=== PATIENT | female | born 1950 | race Caucasian/White ===

== ENCOUNTER 2022-11-25 23:31 | Inpatient (IN) | payer MEDICARE, MEDICAID, SELFPAY ==
--- NOTE | ~2022-11-25 | CT_ITS ---
EXAMINATION: CT brain wo con DATE: 11/26/2022 00:11 INDICATION: Cerebral aneurysm. TECHNIQUE: Computed tomography (CT) of the head was performed without intravenous contrast. The mA wa s adjusted according to patient size. Iterative reconstruction technique was employed. The dose-lengt h product was 681.00 mGy-cm. COMPARISON: None FINDINGS: There is chronic encephalomalacia involving the right frontal and temporal lobes, right ins breonna, and right basal ganglia. There is no intracranial hemorrhage, acute infarction, or abnormal intr acranial mass lesion. There is ex vacuo dilatation of right lateral ventricle. The orbits are normal. There is mild mucosal thickening in left maxillary sinus. There is a right mastoid effusion. There i s a trace left mastoid effusion. There are changes of right-sided craniotomy. IMPRESSION: 1. Chronic encephalomalacia involving the right frontal and temporal lobes, right insula, and right b yudelka ganglia. Reviewed, dictated and finalized at location A. IMPRESSION: 1. Chronic encephalomalacia involving the right frontal and temporal lobes, rig ht insula, and right basal ganglia.
--- NOTE | ~2022-11-25 | XR_ITS ---
EXAMINATION: XR chest 1V portable DATE: 11/26/2022 00:00 INDICATION: Chest pain. TECHNIQUE: A single frontal view of the chest was obtained. COMPARISON: None. FINDINGS: There is a diffuse interstitial pattern, consistent mild pulmonary edema. No pleural effusi on or pneumothorax. The heart size is normal. IMPRESSION: 1. Mild pulmonary edema. Reviewed, dictated and finalized at location A. IMPRESSION: 1. Mild pulmonary edema.
--- NOTE | ~2022-11-25 | XR_ITS ---
XR abdomen/kub 1V INDICATION: Evaluate NG tube position. TECHNIQUE: Limited KUB perform for evaluating NG tube . COMPARISON: No prior studies for comparison. FINDINGS: NG tube tip in the stomach. Visualized bowel gas pattern is unremarkable.There are cholecy stectomy clips. IMPRESSION: 1: NG tube tip in the stomach. Reviewed, dictated and finalized at location L.
--- NOTE | ~2022-11-25 | XR_ITS ---
EXAMINATION: XR chest port-a-cath/central Exam Date/Time: 11/26/2022 16:40 CDT HISTORY: Central line placement right IJ Comparison: Same date at 4:07 PM. RESULT: Lines, tubes, and devices: Right IJ central line terminating in the distal SVC. Endotracheal tube, 2 cm above the lashonda. NG tube, tip and side port projecting over the gastric antrum. Defibrillator pa d overlying the right hemithorax. Cholestatic clips. Lungs and pleura: Mild diffuse interstitial opacities. Cardiomediastinal silhouette: Stable. Other: No acute osseous or upper abdominal finding. IMPRESSION: Right IJ central line, in good position. Endotracheal tube, 2 cm above the lashonda. Mild interstitial edema. Reviewed, dictated and finalized at location K. IMPRESSION: Right IJ central line, in good position. Endotracheal tube, 2 cm above the srinivasa na. Mild interstitial edema.
--- NOTE | ~2022-11-25 | CT_ITS ---
EXAMINATION: CT chest abdomen pelvis w con DATE: 11/26/2022 21:30 INDICATION: RP hemorrhage, hematocrit drop, recent cardiac catheterization and attempts at right femo ral line placement. TECHNIQUE: Computed tomography (CT) of the chest, abdomen, and pelvis was performed with 100 mL Omnip aque-350 intravenous contrast. Automated exposure control and iterative reconstruction technique were employed. The dose-length product was 1782.08 mGy-cm. COMPARISON: None FINDINGS: CHEST: Endotracheal tube terminates 2 cm above the lashonda. NG tube tip terminates in the first portion of th e duodenum. Right IJ central venous line terminating in the distal SVC. Thoracic aorta: No significant dilation or calcification. Lung parenchyma and airways: Bibasilar dependent opacities. Mild septal thickening and dependent grou ndglass opacities. Calcified granulomas. Thoracic inlet, axillae and chest wall: 1.4 cm calcified left thyroid nodule, requiring no additional evaluation. No axillary lymphadenopathy. Mediastinum: No mass or lymphadenopathy. Calcified lymph nodes. Heart and pericardium: Normal heart size. No pericardial effusion. Coronary artery calcifications: Moderate. Pleura: Small bilateral fluid collections. Thoracic bones: No acute osseous finding in the chest. ABDOMEN/PELVIS: Liver: Diffuse fatty infiltration. Biliary/Gallbladder: Gallbladder is absent. No bile duct dilation. Pancreas: No mass or duct dilation. Spleen: Normal. Adrenals:No mass. Kidneys: Simple midpole right cyst. Bilateral hypodensities, too small to characterize but most likel y represent cysts. Subcentimeter left lower pole hypodensity, likely proteinaceous or hemorrhagic cys t. No hydronephrosis. GI tract: No small or large bowel dilation. Normal appendix. Mesentery/Peritoneum: Small volume ascites. No mass or free air. Retroperitoneum: No mass Atherosclerotic abdominal aortic and/or arterial calcifications. Pelvis: Irregular and heterogeneous hemorrhagic collection in the extraperitoneal space anterior to t he bladder measuring approximately 11.0 x 14.0 x 19.5 cm. No active extravasation. The collection com presses the urinary bladder, which contains a Gold catheter. The right ovary is enlarged measuring 3 .8 cm. 8 mm focal outpouching from the right common femoral artery. Soft tissue density anterior to t he right common femoral artery and vein, with tenuous connections to the extraperitoneal collection. Soft Tissues: Soft tissues and body wall unremarkable. Abdominopelvic bones: No acute osseous finding in the abdomen/pelvis. IMPRESSION: 1. 11.0 x 14.0 x 19.5 cm extraperitoneal pelvic hematoma, without active extravasation. 2. 8mm traumatic pseudoaneurysm of the right common femoral artery. 3. Hematoma anterior to the right common femoral artery and vein, with tenuous connection to the extr aperitoneal hematoma. 4. Endotracheal tube terminates 2 cm above the lashonda. 5. Transpyloric NG tube, consider retraction. 6. Bibasilar dependent atelectasis/consolidation with small bilateral effusions. Mild interstitial pu lmonary edema. 7. Enlarged 3.8 cm right ovary, consider pelvic ultrasound for further evaluation when the patient's clinical condition permits. Reviewed, dictated and finalized at location K. IMPRESSION: 1. 11.0 x 14.0 x 19.5 cm extraperitoneal pelvic hematoma, without active extrav asation. 2. 8mm traumatic pseudoaneurysm of the right common femoral artery. 3. Hematoma anterior to the right common femoral artery and vein, with tenuous connection to the extraperitoneal hematoma. 4. Endotracheal tube terminates 2 cm above the lashonda. 5. Transpyloric NG tube, consider retraction. 6. Bibasilar dependent atelectasis/consolidation with small bilateral effusions . Mild interstitial pu
--- NOTE | ~2022-11-25 | XR_ITS ---
XR chest 1V portable 11/26/2022 16:17 Indication: Respiratory distress. Status post intubation. Procedure: AP portable chest Comparison: 11/26/2022 Findings: Endotracheal tube tip 2 cm above the lashonda. NG tube in the stomach. Borderline heart size. There is mild interstitial edema. No pneumothorax. Impression: 1: Mild interstitial edema Reviewed, dictated and finalized at location L. Impression: 1: Mild interstitial edema
--- NOTE | ~2022-11-25 | XR_ITS ---
EXAMINATION: XR chest 1V portable DATE: 11/27/2022 06:35 INDICATION: Respiratory failure. TECHNIQUE: A single frontal view of the chest was obtained. COMPARISON: Chest single view 11/26/2022, chest CT 11/26/2022 FINDINGS: There are airspace opacities in left mid and lower lung zones. There is a small left pleura l effusion. No pneumothorax. The heart size is normal. The endotracheal tube tip is 2.6 cm above the lashonda. A right internal jugular central venous catheter is seen with tip in the superior vena cava. The nasogastric tube tip is in the distal stomach. Surgical clips in the right upper quadrant are lik bradford from cholecystectomy. IMPRESSION: 1. Worsened airspace opacities in left mid and lower lung zones, consistent with atelectasis versus p neumonia. 2. Small left pleural effusion. Reviewed, dictated and finalized at location A. IMPRESSION: 1. Worsened airspace opacities in left mid and lower lung zones, consistent wit h atelectasis versus pneumonia. 2. Small left pleural effusion.
--- NOTE | ~2022-11-25 | XR_ITS ---
XR chest 1V portable 11/26/2022 14:44 Indication: Shortness of breath. Procedure: AP portable chest Comparison: 11/25/2022 Findings: Heart size normal. Bilateral interstitial infiltrates. No pleural effusion or pneumothorax. No acute osseous abnormality. Impression: 1: Improving interstitial infiltrates, consistent with a resolving edema. Reviewed, dictated and finalized at location L. Impression: 1: Improving interstitial infiltrates, consistent with a resolving edema.
[2022-11-25 23:32] VITALS: BP 118/69; PULSE 76; RESP 20; O2SAT 92
--- NOTE | 2022-11-25 23:37 | ECG_ITS ---
Measurements Intervals [place] Rate: 71 P: 61 ND: 184 QRS: 69 QRSD: 96 T: 119 QT: 384 QTc: 418 Interpretive Statements SINUS RHYTHM INFERIOR ST ELEVATION MYOCARDIAL INFARCT- ACUTE BASELINE ARTIFACT- I, II, III, AVR, AVL, AVF, V1-V6 ABNORMAL ECG NO PREVIOUS ECG AVAILABLE FOR COMPARISON Electronically Signed On 11-26-2022 6:38:43 CDT by Carlyle Mallory D.O.
[2022-11-25 23:49] VITALS: BP 122/74; PULSE 74; RESP 22; O2SAT 92
[2022-11-25 23:55] VITALS: PULSE 74
--- NOTE | 2022-11-25 23:57 | ED.GENADULT ---
HPI - General Adult General Chief complaint: Chest Pain Stated complaint: CP/STEMI Time Seen by Provider: 11/25/22 23:50 History of Present Illness HPI narrative: This is a 72-year-old female presenting ED with chief complaint of chest pain. Patient says that her pain originally started at 11:00 a.m. this morning and she described as a sharp left-sided pain that radiated to her neck. It was associated with diaphoresis and weakness. Last until approximately 1:30 p.m. She then took a nap. The pain recurred at 9:00 p.m. and lasted till EMS picked her up around 11:15. This time the patient is resting comfortably with no complaints. Related Data Allergies Allergy/AdvReac Type Severity Reaction Status Date / Time NKDA Allergy Mild Unknown Uncoded 11/25/22 23:52 [facility] Past Medical History Medical History Brain aneurysm Surgical History Surgical History H/O craniotomy Exam Narrative: APPEARANCE: No apparent distress. Head: atraumatic. EYES: EOMI, NOSE: Atraumatic NECK: Trachea midline RESPIRATORY: No increased rate of breathing CARDIOVASCULAR: RRR, ABDOMINAL: Non-distended MUSCULOSKELETAl: No obvious deformities NEURO: Alert. Patient has rigid paralysis of the left arm and the left foot is in a footdrop brace. Neuro exam of the right side is normal. SKIN:: Warm, dry. Normal color PSYCHIATRIC: Normal affect Course Vital Signs Vital signs: Vital Signs Pulse Rate 76 11/25/22 23:32 Respiratory Rate 20 11/25/22 23:32 Blood Pressure 118/69 11/25/22 23:32 Pulse Oximetry 92 11/25/22 23:32 Oxygen Delivery Room Air 11/25/22 23:32 Pulse Rate 74 11/25/22 23:55 Respiratory Rate 22 H 11/25/22 23:49 Blood Pressure 122/74 11/25/22 23:49 Pulse Oximetry 92 11/25/22 23:49 Oxygen Delivery Room Air 11/25/22 23:32 Medical Decision Making MDM Narrative Medical decision making narrative: -Presentation: She 72-year-old female presenting with chest pain and STEMI EKG findings. -DDX includes but is not limited to: STEMI, intracranial hemorrhage -Co-morbidities complicating care: history of brain aneurysm with craniotomy -Social determinants of health: patient is retired and lives with her line -External Chart Review: review of a primary care office visit from January 2020 -Hx from independent Sources: Zach @ bedside, EMS -Discussion of Management/Consultants: Dr. Gilman - Int cardiology -Independent interpretation of studies: Independent EKG interpretation: Rhythm [sinus], Rate [71], [place] -[normal], [place] -[normal], QRS [narrow], QTC [normal], T waves -[negative for concerning inversions], ST Segments - ST segment elevations in 2 3 AVF with reciprocal changes in V1 through V4 Final interpretations: Inferior -STEMI Dx tests considered but not ordered: -Procedures: -Interventions: heparin bolus, 80 mg atorvastatin, [id number] -Shared decision making / Disposition: case was discussed with Dr. Gilman. [facility]. -RX Vital Signs Vital Signs: Vital Signs Pulse Rate 76 11/25/22 23:32 Respiratory Rate 20 11/25/22 23:32 Blood Pressure 118/69 11/25/22 23:32 Pulse Oximetry 92 11/25/22 23:32 Oxygen Delivery Room Air 11/25/22 23:32 Pulse Rate 74 11/25/22 23:55 Respiratory Rate 22 H 11/25/22 23:49 Blood Pressure 122/74 11/25/22 23:49 Pulse Oximetry 92 11/25/22 23:49 Oxygen Delivery Room Air 11/25/22 23:32 Critical Care Time Critical Care Time Critical Care Time: Yes Total Critical Care Time: 35 Discharge Plan Discharge Clinical Impression: ST elevation (STEMI) myocardial infarction Patient Disposition: Still a Patient Condition: Guarded Prognosis Follow-up/Referrals: Gabriel Marte MD [Primary Care Provider] -
[2022-11-26] VITALS (44 sets, daily range): BP systolic 56–160; BP diastolic 40–137; PULSE 53–156; RESP 15–31; TEMP 35.2–37.1; O2SAT 96–100
--- NOTE | 2022-11-26 | ECHOL_ITS ---
Patient Info Name: Wen Tolentino Age: 72 years : 1950 Gender: Female Ht: 61 in Wt: 263 lbs BSA: 2.34 m2 HR: 114 bpm BP: 57 / 46 mmHg Technical Quality: Fair Exam Date: 11/26/2022 9:45 PM Exam Location: [facility] Pulmonary Exam Room: ICU9 Patient Status: Inpatient Admit Date: 11/26/2022 Staff Ordering Physician: Ezequiel Cobos MD Radio Television Announcer: Kanika Adan RDCS Attending Provider: Bebeto Gilman MD Referring Physician: Papito ROMERO; Exam Type: CA echo limited Study Info Indications - CARDIOGENIC SHOCK Summary 1. This was a limited STAT echo done for shock. 2. Left ventricular chamber dimension is normal. 3. Left ventricular systolic function is mildly reduced, estimated at 40-45%. 4. Right ventricular chamber dimension is normal. 5. Right ventricular systolic function is normal. 6. There is trace mitral valve regurgitation. 7. There is trace tricuspid valve regurgitation. 8. There is trivial pericardial effusion. No echocardiographic evidence of tamponade. Left Ventricle Left ventricular chamber dimension is normal. Left ventricular systolic function is mildly reduced, estimated at 40-45%. Right Ventricle Right ventricular chamber dimension is normal. Right ventricular systolic function is normal. Left Atria Left atrial chamber dimension is normal. Right Atria Right atrial chamber dimension is normal. Aortic Valve There is no aortic valve regurgitation. Mitral Valve There is trace mitral valve regurgitation. Tricuspid Valve There is trace tricuspid valve regurgitation. Pericardium/Pleural There is trivial pericardial effusion. No echocardiographic evidence of tamponade. Report Signatures
--- NOTE | 2022-11-26 | ECHO_ITS ---
Patient Info Name: Wen Tolentino Age: 72 years : 1950 Gender: Female Ht: 61 in Wt: 263 lbs BSA: 2.34 m2 HR: 66 bpm BP: 106 / 89 mmHg Heart Rhythm: Sinus Rhythm Exam Date: 11/26/2022 12:49 PM Exam Location: [facility] Patient Status: Inpatient Admit Date: 11/26/2022 Staff Ordering Physician: Damien Mcgee MD Clinical Transformation Specialist: Santiago Greenberg RDCS Attending Provider: Bebeto Gilman MD Exam Type: CA echo doppler color flow Study Info Indications - NSTEMI Complete two-dimensional, color flow and Doppler transthoracic echocardiogram is performed. Summary 1. Complete two-dimensional, color flow and Doppler transthoracic echocardiogram is performed. 2. Left ventricular chamber dimension is normal. 3. There is mildly increased left ventricular wall thickness. 4. Left ventricular systolic function is moderately reduced, estimated at 35-40%. 5. There is akinesis of the inferior and inferolateral wall. 6. Right ventricular systolic function is reduced. 7. There is mild aortic valve regurgitation. 8. There is mild mitral valve regurgitation. Left Ventricle There is akinesis of the inferior and inferolateral wall. Left ventricular chamber dimension is normal. Left ventricular systolic function is moderately reduced, estimated at 35-40%. There is mildly increased left ventricular wall thickness. Right Ventricle Right ventricular chamber dimension is normal. Right ventricular systolic function is reduced. Left Atria Left atrial chamber dimension is normal. Right Atria Right atrial chamber dimension is normal. Aortic Valve The aortic valve is not well visualized. There is no aortic valve stenosis. There is mild aortic valve regurgitation. Pulmonic Valve The pulmonic valve is not well visualized. There is trace pulmonic regurgitation. Mitral Valve There is mild mitral valve regurgitation. The mitral valve annulus is mildly calcified. Tricuspid Valve There is trace tricuspid valve regurgitation. Pericardium/Pleural There is small anterior pericardial effusion. Aorta The aortic root size at the sinus of Valsalva is normal. Left Ventricular Outflow Tract Name Value Normal LVOT 2D LVOT Diameter 2.0 cm LVOT Doppler LVOT Peak Gradient 2 mmHg LVOT Mean Gradient 1 mmHg LVOT VTI 15 cm LVOT VTI/AV VTI Ratio 0.8 LVOT Stroke Volume 46 ml LVOT CO 3.0 l/min LVOT CI 1.3 l/min/m2 Pulmonic Valve Name Value Normal PV Doppler PV Peak Gradient 3 mmHg Mitral Valve Name Value Normal MV Doppler
[2022-11-26 00:06] LABS: Basophils Percent Auto 0.2 % (0.2-1.2); Eosinophils Percent Auto 0.1 % (0-4.4); Hematocrit 46.1 % (37.0-47.0); Hemoglobin 14.8 g/dL (12.0-15.0); Immature Granulocyte Absolute 0.06 K/mm3 (0.00-0.031); Immature Granulocyte Percent A 0.5 % (0-0.5); Lymphocytes Absolute Auto 0.59 K/mm3 (0.9-3.2); Lymphocytes Percent Auto 4.6 % (18.3-44.2); Mean Corpuscular HGB Conc 32.1 g/dl (32-36); Mean Corpuscular Hemoglobin 29.2 pg (26-34); Mean Corpuscular Volume 91.1 fl (80-100); Mean Platelet Volume 9.7 fl (7.4-10.4); Monocytes Absolute Auto 0.7 K/mm3 (0.1-0.6); Monocytes Percent Auto 5.7 % (2.6-8.5); Neutrophils Absolute Auto 11.5 K/mm3 (1.3-6.7); Neutrophils Percent Auto 88.9 % (45.5-73.1); Platelet Count Result 315 k/mm3 (150-375); Red Blood Count 5.06 M/mm3 (4.2-5.4); Red Cell Distribution Width 14.2 % (11.5-14.5); White Blood Count 12.9 K/mm3 (4.5-10.0)
[2022-11-26 00:16] LABS: Alanine Aminotransferase 35 U/L (6-35); Albumin Level 3.9 g/dL (3.5-5.1); Alkaline Phosphatase 56 U/L (38-126); Anion Gap 7 mmol/L (8-16); Aspartate Amino Transferase 131 U/L (14-36); Bilirubin,Total 0.6 mg/dL (0.2-1.3); Blood Urea Nitrogen 17 mg/dL (7-17); Calcium 8.7 mg/dL (8.4-10.2); Carbon Dioxide 26 mmol/L (22-30); Chloride 102 mmol/L (98-107); Cholesterol 194 mg/dL (0-200); Estimated CRCL calculation 81 ml/min; Estimated Glomerular Filt Rate > 60; Glucose 128 mg/dL (65-110); HDL Direct 71 mg/dL; Sodium 135 mmol/L (137-145); Triglycerides 79 mg/dL (<150)
[2022-11-26] MEDS: HEPARIN SODIUM 5,000 UNITS/ML VIAL 4000 UNITS IV PUSH (00:19)
[2022-11-26 00:20] LABS: INR 0.9; Prothrombin Time 12.8 Seconds (11.1-14.7)
[2022-11-26 00:27] LABS: LDL Cholesterol Direct 100 mg/dL
--- NOTE | 2022-11-26 00:30 | PM.IMHP ---
H&P: HPI History of Present Illness Date/Time: 11/26/22 00:30 Chief Complaint: Chest pain, off and on since 11:00 a.m. 11/25/2022 Narrative: 72-year-old female with no known prior cardiac history; history of cerebral aneurysm status post craniotomy in 1986 as per patient. Patient was brought to [facility] Emergency Room with complaints of intermittent episodes of chest pain that started at 11:00 a.m.. Her symptoms were associated with shortness of breath, dizziness, nausea. Patient's EKG on my personal evaluation showed sinus rhythm, ST-elevation in the inferior leads with reciprocal ST depression. Cardiac catheterization lab was activated for primary PCI. Patient was given aspirin, ticagrelor, atorvastatin, heparin bolus prior to the PCI. 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 Patient underwent PCI/ALOK x2 mid RCA and RPL branch with confucianism of flow. Patient was hypotensive prior to and during the procedure, was resuscitated with normal saline and received phenylephrine with improvement in blood pressures to 90s. Chest pain resolved after primary PCI. Left ventriculogram showed segmental wall motion abnormality with akinesis of inferior wall, ejection fraction about 50%, LVEDP elevated at 23 mmHg. Review of Systems Review of Systems: General: Negative for fever, chills, fatigue Psychological: positive for anxiety Ophthalmic: negative for loss of vision ENT: Negative for epistaxis, headaches Allergy and immunology: Negative for hives, nasal congestion Hematologic and lymphatic: Negative for overt bleeding problems Endocrine: Negative for hot flashes, palpitations Respiratory: positive for shortness of breath Cardiovascular: positive for recurrent episodes of chest pain associated with dizziness Gastrointestinal: positive for nausea Musculoskeletal: Negative for myalgia, joint pains Neurological: Negative for weakness Dermatological: Negative for rash, skin discoloration PMFSH Past Medical History Medical History Brain aneurysm Surgical History Surgical History H/O craniotomy Family History Family History (Updated 11/26/22 @ 00:36 by Bebeto Gilman MD) Mother Acute myocardial infarction Meds Home Medications and Allergies Allergies Allergy/AdvReac Type Severity Reaction Status Date / Time NKDA Allergy Mild Unknown Uncoded 11/25/22 23:52 Vital Signs Vital Signs - 24 hr 11/25/22 23:32 11/25/22 23:49 11/25/22 23:55 Pulse Rate 76 74 74 Respiratory Rate 20 22 H Blood Pressure 118/69 122/74 Pulse Oximetry 92 92 Oxygen Delivery Room Air Exam Narrative: PHYSICAL EXAMINATION: GENERAL: obese, alert, anxious MENTAL STATUS: anxious EYES: Extraocular movements intact, no pallor EARS: External ears appear normal, hearing grossly normal NOSE: Normal and patent, no discharge MOUTH: Mucous membranes moist, tongue normal NECK: Supple, no JVD CHEST: distant breath sounds HEART: Normal rate, regular rhythm, distant heart sounds ABDOMEN: Soft, nontender NEUROLOGICAL: Alert, oriented, normal speech, no gross motor deficits MUSCULOSKELETAL: No major deformity, no amputation EXTREMITIES: No pedal edema, no clubbing, no cyanosis SKIN: no rash on the exposed area, no cyanosis PSYCHIATRIC: anxious H&P: Results Labs Labs: Short CBC 11/25/22 Range/Units 23:58 WBC 12.9 H (4.5-10.0) K/mm3 Hgb 14.8 (12.0-15.0) g/dL Hct 46.1 (37.0-47.0) % Plt Count 315 (150-375) k/mm3 BMP 11/25/22 23:58 Sodium 135 L Potassium 4.0 Chloride 102 Carbon Dioxide 26 BUN 17 Creatinine 0.60 L Glucose 128 H Calcium 8.7 Liver Function 11/25/22 Range/Un
--- NOTE | 2022-11-26 00:48 | PC.NURSE ---
Lipitor not given due to pt departing ED to lab rn before medication was sent up from pharmacy.
--- NOTE | 2022-11-26 01:55 | WPDCARDPROC ---
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 Patient was brought to [facility] Emergency Room with complaints of intermittent episodes of chest pain that started at 11:00 a.m..? Her symptoms were associated with shortness of breath, dizziness, nausea.? Patient's EKG showed sinus rhythm, ST-elevation in the inferior leads with reciprocal ST depression.? Cardiac catheterization lab was activated for primary PCI.? Patient was given aspirin, ticagrelor,? heparin bolus prior to the PCI. PROCEDURES PERFORMED: 1. Left heart catheterization- Selective left and right coronary angiogram; left ventriculogram and hemodynamic assessment 2. Primary percutaneous coronary intervention- balloon angioplasty and stenting of totally occluded mid RCA using a 4.0 x 38 mm resolute brett zotarolimus eluting stent (ZES); balloon angioplasty and stenting of diffuse disease in the RPL using a 3.0 x 30 mm resolute brett ZES with anglican of flow. 3. Deployment of Angio-Seal hemostatic device 4. Moderate sedation-CPT code 77583 and beyond MODERATE SEDATION: Midazolam 1 mg; fentanyl 25 mcg. Start time 0040 , Stop time 0140 ; Total [id number] time 60 minutes; Shyla Clemons RN was trained observer for moderate sedation. ACCESS SITE: Right common femoral artery PROCEDURE NOTE: patient was emergently brought to catheterization lab and prepped and draped in a usual sterile manner. After local anesthesia with lidocaine, right common femoral artery access was taken with micropuncture needle followed by insertion of a 6 [place] sheath. Selective left and right coronary angiogram was performed using 5 [place] JL4 and 6 [place] JR4 guide catheters respectively. Orthogonal views were taken. After completion of PCI, a 5 [place] pigtail catheter was advanced in the LV cavity and was flushed with normal saline. LV pressure measurement was performed. After this, left ventriculogram was performed. The catheter was flushed again, and gradient across the aortic valve was measured on the pullback of the catheter. After completion of procedure, selective right common femoral angiogram was performed and Angio-Seal vascular closure device was deployed with good hemostasis. There were no immediate procedure related complications. FINDINGS: LEFT MAIN CORONARY: a medium caliber vessel with about 20-30% narrowing at the ostium; no significant catheter dampening. Good reflux of contrast. LEFT ANTERIOR DESCENDING ARTERY: Lad is a medium caliber vessel with high-grade about 80-90% stenosis in the proximal-mid segment at the origin of the septal ceramic mold designer. The remainder of the mid LAD is mildly tortuous with mild diffuse disease. The vessel tapers distally reaches the apex. There is SAPNA 2 flow in LAD due to high-grade stenosis in the proximal-mid segment. Diagonal branch is a small-caliber vessel. LEFT CIRCUMFLEX ARTERY: Left circumflex artery is a small caliber vessel, gives rise to small caliber tortuous OM1 and OM2 branches without significant focal stenosis. RIGHT CORONARY ARTERY: Large caliber, dominant vessel. Mild diffuse plaque is seen in the proximal segment. 100% thrombotic occlusion in the mid segment. Moderate diffuse disease in Proximal segment of the RPL branch. RPDA is a small to medium caliber vessel with mild plaque in the proximal segment. LEFT VENTRICULOGRAM: LV dysfunction with segmental wall motion abnormality; inferior wall is akinetic. Basal segments hypokinetic. LVEF about 50%. LVEDP elevated at 23 mmHg.
[2022-11-26] MEDS: SODIUM CHLORIDE 0.9% IV 1,000 ML 125 ML IV CONT (02:05)
--- NOTE | 2022-11-26 02:05 | ADMGEN ---
This patient, Wen Tolentino, was admitted to Intensive Care Unit-9. Patient/family oriented to hospital policies and general routines including ID bracelet, bed and alarms, visiting hours, pain management, procedures, bathroom and other care routines, personal items, smoking policy, room service/diet, and visiting hours. Information on how to activate the Rapid Response Team has been discussed. Patient/Family are encouraged to report perceived risks to care and to ask questions if they do not understand what they are told or what they should do.
[2022-11-26] MEDS: ATORVASTATIN 40 MG TABLET 80 MG PO ×2 (03:25→22:45)
[2022-11-26 03:42] LABS: Cholesterol 177 mg/dL (0-200); HDL Direct 67 mg/dL; Triglycerides 80 mg/dL (<150)
[2022-11-26 03:52] LABS: LDL Cholesterol Direct 88 mg/dL
[2022-11-26 03:57] LABS: Troponin I > 80.000 ng/mL (0.000-0.034)
[2022-11-26 04:43] LABS: Hemoglobin A1C 5.4 % (<5.7)
[2022-11-26 06:33] LABS: Troponin I > 80.000 ng/mL (0.000-0.034)
[2022-11-26] MEDS: TICAGRELOR 90 MG TABLET PO (08:50)
[2022-11-26] MEDS: ASPIRIN 81 MG ENTERIC TABLET PO (08:50)
--- NOTE | 2022-11-26 09:18 | ECG_ITS ---
Measurements Intervals [place] Rate: 57 P: 48 [place]: 194 QRS: -9 QRSD: 88 T: 269 QT: 436 QTc: 425 Interpretive Statements SINUS BRADYCARDIA DELAYED PRECORDIAL R/S TRANSITION LOW QRS VOLTAGE- DIFFUSE LEADS INFERIOR ST ELEVATION MYOCARDIAL INFARCT- RECENT ABNORMAL ECG COMPARED TO ECG 11/25/2022 23:34:52 SINUS BRADYCARDIA NOW PRESENT EVOLVING MYOCARDIAL INFARCT FINDING NOW PRESENT Electronically Signed On 11-26-2022 12:47:18 CDT by Carlyle Mallory D.O.
[2022-11-26] MEDS: SODIUM CHLORIDE 0.9% IV 1,000 ML 100 ML IV CONT ×2 (09:34→19:24)
--- NOTE | 2022-11-26 10:39 | WPDCNINT ---
Assessment and Plan Assessment and plan (1) ST elevation (STEMI) myocardial infarction: Code(s): I21.3 - ST elevation (STEMI) myocardial infarction of unspecified site Status: Acute Assessment and Plan: Status post 1.?Left heart catheterization- Selective left and right coronary angiogram;? left ventriculogram and hemodynamic assessment 2. ? Primary percutaneous coronary intervention- balloon angioplasty and? stenting of totally occluded mid RCA using a 4.0 x 38 mm resolute brett zotarolimus eluting stent (ZES);? balloon angioplasty and stenting of diffuse disease in the? RPL using a 3.0 x 30 mm resolute brett ZES with religious of flow. 3.? Deployment of Angio-Seal? 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 Patient does not have any history of hypertension Patient currently asymptomatic and not tachycardic continue IV fluids for now and continue monitoring Monitor urine output (4) Coronary artery disease: Code(s): I25.10 - Atherosclerotic heart disease of [place] coronary artery without angina pectoris Status: Acute Assessment and Plan: Patient has multivessel coronary disease in now status post PCI ALOK of RCA and RPL. She will need staged PCI for LAD lesion prior to discharge as per Cardiology Current management as above Plan DVT prophylaxis -patient received anticoagulation during procedure and I anticipate patient will ambulate. SCDs while in bed Nutrition -heart healthy Code Status - Full Code Total Critical Care Time - 30 minutes Due to a high probability of clinically significant, life threatening deterioration, the patient required my highest level of preparedness to intervene emergently and I personally spent this critical care time directly and personally managing the patient. This critical care time included obtaining a history; examining the patient; pulse oximetry; ordering and review of studies; arranging urgent treatment with development of a management plan; evaluation of patient's response to treatment; frequent reassessment; and discussions with other providers. It was exclusive of separately billable procedures and treating other patients and teaching time. Please see Assessment and Plan section and the rest of the note for further information on patient assessment and treatment Construction Coordinator Consult Note Consult date: 11/26/22 Reason for consult: STEMI HPI: Wen Tolentino is a 72 year old female with past medical history of craniotomy secondary to rupture of cerebral aneurysm in 1986 and no significant other medical history presented yesterday with chief complaint of chest pain. Patient states chest pain started at 11:00 a.m. while she was resting, it was pressure in quality, in the middle of chest radiation, 9/10 severe, it was a 7 nausea but no vomiting, it was associated with shortness of breath but no palpitation. Prior to that patient was feeling fine except that she had a similar episode on [facility] at [facility] which lasted 1 hour and resolved spontaneously with rest. Patient denies any fever cough dysuria hematuria abdominal pain hematochezia or melena.. She has a residual paralysis and contracture of left upper extremity and weakness of left lower extremi
--- NOTE | 2022-11-26 11:30 | PM.PNCARD ---
Progress Note: A&P Assessment and Plan (1) ST elevation (STEMI) myocardial infarction: Code(s): I21.3 - ST elevation (STEMI) myocardial infarction of unspecified site Status: Acute Assessment and Plan: Patient underwent emergent cardiac catheterization 11/26 which showed 100% thrombotic occlusion of mid RCA - infarct related vessel with diffuse disease in RPL branch; high-grade stenosis in the proximal-mid LAD.? Patient underwent PCI/ALOK x2 mid RCA and RPL branch with temple of flow.? Chest pain resolved after primary PCI.? Left ventriculogram showed segmental wall motion abnormality with akinesis of inferior wall, ejection fraction about 50%, LVEDP elevated at 23 mmHg. Dual antiplatelet therapy with aspirin and ticagrelor, high-dose statin Echo ordered and pending. Will plan for staged PCI to the proximal-mid LAD on 11/27 AM. Patient to be NPO at midnight. Subjective Date/time seen: 11/26/22 11:30 Interval history: Reason for visit: STEMI HPI: 72-year-old female with no known prior cardiac history; history of cerebral aneurysm status post? craniotomy in 1986 as per patient.?Patient was brought to [facility] Emergency Room with complaints of intermittent episodes of chest pain that started at 11:00 a.m..? Her symptoms were associated with shortness of breath, dizziness, nausea.?Patient's EKG on my personal evaluation showed sinus rhythm, ST-elevation in the inferior leads with reciprocal ST depression.? Cardiac catheterization lab was activated for primary PCI.? Patient was given aspirin, ticagrelor,? atorvastatin, heparin bolus prior to the PCI. Patient underwent emergent cardiac catheterization which showed 100% thrombotic occlusion of mid RCA - infarct related vessel with diffuse disease in RPL branch; high-grade stenosis in the proximal-mid LAD.? Patient underwent PCI/ALOK x2 mid RCA and RPL branch with temple of flow.? Patient was? hypotensive prior to and during the procedure, was resuscitated with normal saline and received? phenylephrine with improvement in blood pressures to 90s.? Chest pain resolved after primary PCI.? Left ventriculogram showed segmental wall motion abnormality with akinesis of inferior wall, ejection fraction about 50%, LVEDP elevated at 23 mmHg. Date of service 11/26: No issues since PCI. Doing well this morning. Had a brief mild episode of chest pain early this morning, but is currently chest pain free. No shortness of breath. Review of Systems Review of Systems: 8 point ROS obtained. Negative, unless stated in HPI. Exam Const: General: comfortable and no acute distress HENMT: Mouth: Yes moist mucous membranes Neck: Neck: supple Resp: Effort & Inspection: normal respiratory effort Auscultation: clear to auscultation bilaterally Cardio: Rate: regular rate Rhythm: regular rhythm Heart sounds: no murmurs GI: GI Palp: Yes Soft to palpation and No Tenderness to palpation present (GI) Skin: General skin exam: normal color Neuro: Speech: normal speech Extrem: Other: Left arm is contracted Psych: Mental Status: mental status grossly normal Affect: normal affect Objective Data Vital Signs Vital Signs: Vital Signs - 24 hr 11/25/22 23:32 11/25/22 23:49 11/25/22 23:55 Temperature Pulse Rate 76 74 74 Respiratory Rate 20 22 H Blood Pressure 118/69 122/74 Pulse Oximetry 92 92 Oxygen Delivery Room Air Oxygen Flow Rate 11/26/22 02:16 11/26/22 02:31 11/26/22 02:46 Temperature Pulse Rate 56 L 78 58 L Respiratory Rate 20 19 Blood Pressure 90/52 L 91/62 L 102/77 Pulse Oximetry 98 99 Oxygen Delivery Oxygen Flow Rate 11/26/22 03:01 11/26/22 03:16 11/26/22 03:46 Temperature Pulse Rate 53 L 56 L 54 L Respiratory Rate 18 20 16 Blood Pressure 91/67 L 90/65 L 98/67 L Pulse Oximetry 98 99 100 Oxygen Delivery Oxygen Flow Rate 11/26/22 02:30 11/26/22 04:00 11/26/22 04:00 Temperature Pulse Rate 75 R
[2022-11-26] MEDS: LEVALBUTEROL NEB 1.25 MG/3 ML (14:37)
[2022-11-26] MEDS: LEVALBUTEROL NEB 1.25 MG/3 ML INHALATION (14:37)
--- NOTE | 2022-11-26 14:43 | ECG_ITS ---
Measurements Intervals [place] Rate: 79 P: 46 UT: 170 QRS: 24 QRSD: 87 T: -79 QT: 376 QTc: 431 Interpretive Statements SINUS RHYTHM DELAYED PRECORDIAL R/S TRANSITION LOW QRS VOLTAGE- DIFFUSE LEADS INFERIOR INFARCT, RECENT BASELINE ARTIFACT- V1-V2 ABNORMAL ECG COMPARED TO ECG 11/26/2022 09:27:19 SINUS RHYTHM NOW PRESENT Electronically Signed On 11-26-2022 15:35:55 CDT by Carlyle Mallory D.O.
[2022-11-26] MEDS: FUROSEMIDE INJ 40 MG/4 ML VIAL (15:04)
[2022-11-26] MEDS: MORPHINE SULFATE (*CRX) 2 MG/ML INJ IV PUSH ×2 (15:05→15:06)
[2022-11-26] MEDS: METOPROLOL TARTRATE INJ 5 MG/5 ML VIAL IV PUSH (15:06)
[2022-11-26] MEDS: NITROGLYCERIN/D5W 200 MCG/ML 50 MG/250 ML BTL IV CONT (15:08)
[2022-11-26 15:10] LABS: Alveolar/Arterial O2 Gradient 502.1 mmHg; Base Excess ABG -24.6 mEq/l (+/-2.0); Carboxyhemoglobin 0.2 % THb (0-2.0); Fractional Inspired Oxygen 100 %; HCO3 ABG 7.5 mEq/l (22.0-26.0); Methemoglobin ABG 0.3 %THb (0-1.5); Oxygen Content ABG 16.8 %vol (16.0-22.0); Oxygen Saturation ABG 97.9 % (95.0-100.0); Oxyhemoglobin 96.9 % THb (90.0-100.0); PCO2 ABG 38.5 mmHg (35.0-45.0); PO2 ABG 172.4 mmHg (80.0-100.0); PO2 FiO2 Ratio Arterial Blood 1.72 %; Reduced Hemoglobin 2.6 %THb (0-5.0); Total Hemoglobin 12.1 g/dL (12.0-18.0)
[2022-11-26 15:12] LABS: Device NON-INVASIVE VENT; Site Drawn LEFT FEMORAL; pH ABG 6.907 (7.350-7.450)
[2022-11-26 15:13] LABS: Non-Invasive Expiratory Pressure 8 CMH2O; Non-Invasive Inspiratory Pressure 15 CMH2O; Non-Invasive Vent Rate 20 /MIN
--- NOTE | 2022-11-26 15:31 | PCOTNOTE ---
D/C pt. from therapy services at this time, as pt. declined in status shortly after completion of evaluation, with plans for pt. to be intubated, no longer medically appropriate for therapy at this time. Re-order when pt. able to participate.
[2022-11-26] MEDS: SODIUM BICARBONATE 8.4% 50 MEQ/50 ML SYRINGE 100 MEQ IV PUSH (15:40)
--- NOTE | 2022-11-26 16:37 | WPDPROCEDUR ---
Procedures Central Line Placement Right Femoral: Central Line Date: 11/03/22 Central Line Time: 14:30 Discussed w/ the patient/family/POA,the placement of a central venous catheter, including its clinical necessity/indication & associated potential risks, benifits and alternatives.: Yes The patient/family/POA understand(s) and acknowledge(s) the need to proceed with central venous catheter insertion as an important element of the patient's clinical management.: Yes Consent: I have discussed with the patient and/or surrogate, the non-emergent placement of a central venous catheter, including its clinical necessity/indication and associated potential risks and complications. The patient and/or surrogate understand(s) and acknowledge(s) the need to proceed with central venous catheter insertion as an important element of the patient's clinical management. Time Out Performed: Yes Patient Position: supine Patient placed on monitor/pulse ox: Yes Provider Prep: mask, sterile gown, sterile gloves, Max. sterile barrier precautions, cap and hand hygiene with conventional soap/water or alcohol based hand rub Central line prep: Povidone-Iodine 1% Local anesthesia used: lidocaine 1% Amount of anesthesia used (ml): 5 Sterile US Technique with sterile gel/sterile probe covers: Yes Central line lumen inserted: triple Post Procedure: aseptic technique maintained throughout procedure Patient tolerated procedure: well Additional comments: Patient was hypotensive and poor IV access and nurses were unable to draw any blood samples. Patient was placed on BiPAP for respiratory distress and I attempted an emergent central venous catheter insertion and right femoral site. Patient had a small vein on the left side. On right side on multiple attempts I was able to access the vein but unable to advance guidewire. Patient had relatively small vein for her size and was deep. Few times when I was able to access vein I was unable to advance guidewire due to thick skin folds surrounding the end of the needle. Patient also was moving and moved her leg multiple times. After multiple attempts procedure was unsuccessful and was aborted as patient's condition was deteriorated and I proceeded to intubate the patient.
--- NOTE | 2022-11-26 16:41 | WPDPROCEDUR ---
Procedures Intubation Intubation Date: 11/26/22 Intubation Time: 15:45 Consent: Patient was deteriorating hemodynamically and was in respiratory failure along with shock. Charge nurse spoke to patient's family in the waiting room while I was attending the patient and they consented to intubation and nasal procedures A pre-procedural Time-Out was completed immediately before starting the procedure and confirmed: Patient Identification, Site, Procedure, Patient Position and the Availability of Requisite Equipment: Yes Sedative: etomidate Mg given: 20 Laryngoscope: fiber optic video scope Assist device used: fiber optic device ET tube size: 7.5 Tube secured depth (cm): 22 Tube secured location: teeth Tube placement confirmation: visualized tube passing through cords, equal breath sounds bilaterally, no breath sounds over epigastrium and confirmation by capnometry Patient tolerated procedure: well Intubation complications: none
--- NOTE | 2022-11-26 16:42 | WPDPROCEDUR ---
Procedures Central Line Placement Right IJ: Central Line Date: 11/26/22 Central Line Time: 16:15 Discussed w/ the patient/family/POA,the placement of a central venous catheter, including its clinical necessity/indication & associated potential risks, benifits and alternatives.: Yes The patient/family/POA understand(s) and acknowledge(s) the need to proceed with central venous catheter insertion as an important element of the patient's clinical management.: Yes Consent: I have discussed with the patient and/or surrogate, the non-emergent placement of a central venous catheter, including its clinical necessity/indication and associated potential risks and complications. The patient and/or surrogate understand(s) and acknowledge(s) the need to proceed with central venous catheter insertion as an important element of the patient's clinical management. Time Out Performed: Yes Patient Position: supine Patient placed on monitor/pulse ox: Yes Provider Prep: mask, sterile gown, sterile gloves, Max. sterile barrier precautions, cap and hand hygiene with conventional soap/water or alcohol based hand rub Central line prep: Povidone-Iodine 1% Sterile US Technique with sterile gel/sterile probe covers: Yes Central line lumen inserted: triple Length (cm): 16 Depth of Insertion (cm): 16 Post Procedure: sutured in place, good blood return, all ports aspirated, flushed, capped, transparent dressing, hemostatic product, antimicrobial product and aseptic technique maintained throughout procedure Post procedure x-ray: tip of catheter in good position and no pneumothorax seen Patient tolerated procedure: well Complications: none
--- NOTE | 2022-11-26 16:44 | PM.EVENT ---
Event Note Event Note Event Note: Patient was doing well during the day and was seen by Physical therapy. Patient was assisted to sit in a chair and at that time patient became short of breath tachycardia and initially hypertensive. I was asked by nursing staff to come see the patient and patient states that she could not breathe she was complaining of pain. Exam patient had diffuse wheezing. LVEDP on her cardiac catheterization was elevated and she had received fluid and I suspected patient may have developed pulmonary edema. Patient was given Lasix and bronchodilators. Patient was cold and clammy. She complained of pain but was stating the pain was in abdomen and was different from the pain that she presented with. I repeated EKG which showed ST elevation in inferior leads. I showed the EKG and discussed case with Dr. Fletcher. I give patient morphine for pain and anxiety. We decided to start patient on nitroglycerin infusion along with Lasix. For respiratory failure I placed patient on BiPAP. Patient was initially tachypneic but later her respiratory rate did initially improve nwith these measures. She became diaphoretic cold and was difficult to obtain saturation. ABG was obtained with difficulty had to obtain a sample with ultrasound guidance from left femoral artery and showed severe metabolic acidosis. I gave patient 2 amps of bicarb. Patient had poor IV access and nursing staff was unable to draw blood samples. I tried to obtain a central venous catheter right femoral site as patient had 30 degree head up on BiPAP. Central venous catheter procedure was unsuccessful. See procedure note for details. During the procedure patient continued to deteriorate and became hypotensive and more confused. I suspected patient had developed cardiogenic shock. At that point I decided to intubate the patient since she was crashing . Patient was intubated without any significant difficulty with 20 mg of etomidate. Patient was started on Levophed infusion for blood pressure support. I also ordered a IV fluid bolus once patient was intubated.. Post intubation I placed a central venous catheter in right IJ without any difficulty. Post intubation ABG was reviewed. CXR was done and reviewed. I ordered labs including CBC CMP Mag phos troponin lactic acid. Patient likely has cardiogenic shock. I added dobutamine. Echocardiogram showed EF of 35-40% with akinesis of inferior inferolateral wall. RV systolic function is reduced. I empirically started antibiotics to cover for any possible sepsis and sent cutures. I ordered procalcitonin level. [facility] went down and ordering meds and labs became difficult. Lab samples were collected and sent to lab but later Nurse called and informed me that they got lost/misplaced in the lab. Meanwhile pt continue to deterioration requiring multiple vasopressors with increased doses I spoke to Dr. Fletcher and than confectionery drops machine operator Blending Plant Operator Dr. Cobos. We discussed various possible cause of her deterioration and treatment options. I requested a STAT Echo which he will review once done. I spoke to ICU charge nurse and requested her to call in confectionery drops machine operator fiber technologist. Prior to leaving, I spoke to pt's and other family members and updated them with pts current status and deterioration. I answered their questions and explained them that pt is in critical condition with guarded prognosis. I received call from nurse regarding labs which showed electrolyte abnormalities, increase in WBC count and drop in Hb. Acute blood loss anemia could explain the deterioration. I have ordered 2 units PRBC stat transfusion, STAT CT C/A/P to evaluate for RP hemorrhage and electrolyte replacement. Additional CC time spent at pt bedside except separately billed procedures - 120 minutes
[2022-11-26] MEDS: NOREPINEPHRINE 8 MG/D5W 250 ML 8 MG/250 ML BAG 18.8 MG (16:49)
[2022-11-26] MEDS: RAPID SEQUENCE INTUBATION KIT 1 EACH (16:51)
[2022-11-26] MEDS: ETOMIDATE 20 MG/10 ML AMPUL IV PUSH (16:51)
[2022-11-26] MEDS: FENTANYL 2,500MCG/NS250ML(*CRX 2,500 MCG/250 ML BAG IV CONT (16:52)
[2022-11-26] MEDS: MIDAZOLAM 100MG/NS 100ML(*CRX) 100 MG/100 ML BAG IV CONT (16:52)
[2022-11-26] MEDS: DOBUTamine 250 MG/D5W 250 ML 250 MG/250 ML BAG 17.91 MG IV CONT (16:53)
[2022-11-26 18:16] LABS: Alveolar/Arterial O2 Gradient 500.9 mmHg; Base Excess ABG -12.5 mEq/l (+/-2.0); Fractional Inspired Oxygen 100 %; Oxygen Content ABG 13.4 %vol (16.0-22.0); Oxygen Saturation ABG 99.1 % (95.0-100.0); Oxyhemoglobin 97.4 % THb (90.0-100.0); PCO2 ABG 28.5 mmHg (35.0-45.0); PO2 ABG 183.6 mmHg (80.0-100.0); PO2 FiO2 Ratio Arterial Blood 1.84 %; Total Hemoglobin 9.5 g/dL (12.0-18.0)
[2022-11-26 18:29] LABS: Device VENTILATOR; Modified Allen's Test Unable to perform; Site Drawn RIGHT RADIAL; pH ABG 7.278 (7.350-7.450)
[2022-11-26 18:30] LABS: Arterial Blood Gas Vent Mode CMV; Arterial Blood Gas Ventilator rate 22 /MIN
[2022-11-26 18:31] LABS: Arterial Blood Gas PEEP 8 cmH2O; Arterial Blood Gas Tidal Volume 450 ml
--- NOTE | 2022-11-26 18:49 | PC.NURSE ---
1530-PATIENT UP TO CHAIR WITH PT. BECAME DIAPHORETIC, SOB. ASSISTED BACK TO BED. OXYGEN AT 3L/NC APPLIED. DR. BARILLAS NOTIFIED AND AT BEDSIDE. PATIENT GIVEN LASIX 20 MG IVP, RESP TREATMENT. BIPAP APPLIED. PATIENT STILL COMPLAINING OF SOB AND DIAPHORESIS. BP DROPPING, PREPARING PATIENT FOR CENTRAL LINE PLACEMENT. BIPAP STILL IN PLACE. FAMILY UPDATED ON PATIENT CONDITION. PATIENT INTUBATED AND RIGHT IJ CENTRAL LINE PLACED. FAMILY AT BEDSIDE.
[2022-11-26] MEDS: SODIUM BICARBONATE 8.4% 50 MEQ/50 ML SYRINGE 100 MEQ (19:24)
--- NOTE | 2022-11-26 19:45 | PC.NURSE ---
Called laboratory as labs have not resulted from approximately 1700. [facility] was on downtime. Labs redrawn and sent to lab. Dr. Mcgee notified.
[2022-11-26 19:59] LABS: Hematocrit 24.5 % (37.0-47.0); Hemoglobin 8.1 g/dL (12.0-15.0); Mean Corpuscular HGB Conc 33.1 g/dl (32-36); Mean Corpuscular Hemoglobin 29.8 pg (26-34); Mean Corpuscular Volume 90.1 fl (80-100); Mean Platelet Volume 9.8 fl (7.4-10.4); Platelet Count Result 223 k/mm3 (150-375); Red Blood Count 2.72 M/mm3 (4.2-5.4); Red Cell Distribution Width 14.3 % (11.5-14.5); White Blood Count 26.7 K/mm3 (4.5-10.0)
[2022-11-26] MEDS: VASOPRESSIN INJ 100 UNITS in DEXTROSE 5% 95 ML IV CONT (20:02)
[2022-11-26] MEDS: SODIUM BICARBONATE 8.4% 50 MEQ/50 ML SYRINGE IV PUSH (20:06)
[2022-11-26] MEDS: SODIUM BICARBONATE 8.4% 150 MEQ in WATER, STERILE FOR INJECTION 950 ML 125 MEQ IV CONT (20:07)
[2022-11-26] MEDS: EPINEPHrine INJ 4 MG in DEXTROSE 5% IN WATER 250 ML 76.2 MG IV CONT ×2 (20:08→21:57)
[2022-11-26 20:12] LABS: Lactic Acid Reflex 6.3 mmol/L (0.7-2.0)
[2022-11-26] MEDS: CALCIUM GLUC 2,000 MG/NS 100ML 2,000 MG/100 ML BAG 100 MG IVPB (20:19)
[2022-11-26] MEDS: HYDROCORTISONE SODIUM SUCCINATE 100 MG/2 ML VIAL IV PUSH (20:19)
[2022-11-26 20:21] LABS: Alanine Aminotransferase 157 U/L (6-35); Albumin Level 1.8 g/dL (3.5-5.1); Alkaline Phosphatase 31 U/L (38-126); Anion Gap 3 mmol/L (8-16); Aspartate Amino Transferase 502 U/L (14-36); Bilirubin,Total 0.5 mg/dL (0.2-1.3); Blood Urea Nitrogen 22 mg/dL (7-17); Calcium 6.3 mg/dL (8.4-10.2); Carbon Dioxide 31 mmol/L (22-30); Chloride 102 mmol/L (98-107); Estimated CRCL calculation 62 ml/min; Estimated Glomerular Filt Rate > 60; Glucose 254 mg/dL (65-110); Magnesium 1.8 mg/dL (1.6-2.3); Potassium 2.4 mmol/L (3.4-5.0); Sodium 136 mmol/L (137-145)
[2022-11-26] MEDS: MINERAL OIL/WHITE PETROLATUM OINTMENT 1 APPLIC EACH EYE (20:22)
[2022-11-26 20:29] LABS: NT Pro B Type Natriuretic Pept 4770 pg/mL (19.9-100); Troponin I > 80.000 ng/mL (0.000-0.034)
[2022-11-26] MEDS: NOREPINEPHRINE 8 MG/D5W 250 ML 8 MG/250 ML BAG 75 MG IV CONT ×2 (20:48→23:41)
[2022-11-26] MEDS: POTASSIUM CHLORIDE 20 MEQ PACKET (FOR LIQUID) 40 MEQ FEED TUBE (21:05)
[2022-11-26 21:18] LABS: Procalcitonin 1.8 ng/mL
--- NOTE | 2022-11-26 21:53 | PM.PNCARD ---
Progress Note: A&P Assessment and Plan (1) ST elevation (STEMI) myocardial infarction: Code(s): I21.3 - ST elevation (STEMI) myocardial infarction of unspecified site Status: Acute Plan This is a 72-year-old lady with late presentation of inferior wall WV taken to the slabber emergently yesterday for PCI. She also has a moderate unrelated lesion in the LAD. Through the course of this evening she has developed picture of hypotension and shock. This is not generally expected this soon after inferior wall WV. echocardiogram done stat at the bedside and interpreted by myself as images are obtained shows mildly depressed LV systolic function the right ventricle actually looks fairly good there is trivial amount of MR certainly nothing that looks like a ruptured papillary muscle and there is no evidence of a VSD. Upon arrival in the ICU the patient had laboratory data showing a precipitous drop in her hemoglobin from 14.5-8. It is likely that she has a retroperitoneal bleed following yesterday's procedure. I believe we are. I am today looking at a picture of hemorrhagic shock rather than a cardiogenic shock and in this setting we could certainly make things worse by placing an Impella device with large-bore access and anticoagulating this lady. I do not believe we will bring her to the catheterization laboratory other procedure. She will be receiving packed red cell transfusions very shortly Ezequiel Cobos MD [facility] Subjective Date/time seen: Date of service: 11/26/22 21:53 Interval history: Called in by processes chemical design engineer to evaluate this 72-year-old woman who is status post inferior wall mi yesterday and has developed picture of shock. From what I understand about the case is cardiogenic shock would not be expected. She was intubated earlier this afternoon and is now on aggressive pressor support. Concern on the part of processes chemical design engineer was the need for hemodynamic support such as Impella device. Exam Const: Other: Massively obese woman appearing about her stated age he intubated in the ICU. Lower extremities are cool. HENMT: Mouth: Yes moist mucous membranes Eyes: Sclera: sclerae normal Neck: Neck: supple Other: Very difficult to comment on JVD given her body habitus Resp: Effort & Inspection: normal respiratory effort Auscultation: clear to auscultation bilaterally Other: Ventilator breath sounds are relatively clear Cardio: Rate: regular rate Rhythm: regular rhythm Other: Very soft systolic murmur at the left sternal border no prominent MR murmur no thrill indicative of PST GI: GI Palp: Yes Soft to palpation Urinary Catheter: Urinary Catheter: patent and draining Skin: General skin exam: normal color Extrem: Other: Extremities are cool distal pulses are adequate no edema Objective Data Vital Signs Vital Signs: Vital Signs - 24 hr 11/25/22 23:32 11/25/22 23:49 11/25/22 23:55 Temperature Pulse Rate 76 74 74 Respiratory Rate 20 22 H Blood Pressure 118/69 122/74 Pulse Oximetry 92 92 Oxygen Delivery Room Air Oxygen Flow Rate Fraction of Inspired Oxygen 11/26/22 02:16 11/26/22 02:31 11/26/22 02:46 Temperature Pulse Rate 56 L 78 58 L Respiratory Rate 20 19 Blood Pressure 90/52 L 91/62 L 102/77 Pulse Oximetry 98 99 Oxygen Delivery Oxygen Flow Rate Fraction of Inspired Oxygen 11/26/22 03:01 11/26/22 03:16 11/26/22 03:46 Temperature Pulse Rate 53 L 56 L 54 L Respiratory Rate 18 20 16 Blood Pressure 91/67 L 90/65 L 98/67 L Pulse Oximetry 98 99 100 Oxygen Delivery Oxygen Flow Rate Fraction of Inspired Oxygen 11/26/22 02:30 11/26/22 04:00 11/26/22 04:00 Temperature Pulse Rate 75 Respiratory Rate Blood Pressure Pulse Oximetry 100 99 Oxygen Delivery Nasal Cannula Nasal Cannula Oxygen Flow Rate 4 4 Fraction of Inspired Oxygen 11/26/22 04:16 11/26/22 05:16 11/26/22 06:00 Temperature 36
[2022-11-26] MEDS: MAGNESIUM SULF 1 GM/D5W 100 ML 1 GM/100 ML BAG IVPB (21:58)
[2022-11-26] MEDS: POTASSIUM CHLORIDE INJ 40 MEQ in SODIUM CHLORIDE 0.9% IV 500 ML 130 MEQ IVPB (21:59)
[2022-11-26 22:05] LABS: INR 1.8; Partial Thromboplastin Time 42.9 SECONDS (22.3-36.8); Prothrombin Time 21.7 Seconds (11.1-14.7)
[2022-11-26 22:06] LABS: Fibrinogen 154 mg/dl (215-510)
[2022-11-26] MEDS: CEFEPIME 1 GM/NS 50 ML 1 GM/50 ML BAG IVPB (22:27)
[2022-11-26] MEDS: CENTRAL LINE FLUSH 10 ML IV PUSH (22:36)
[2022-11-26 22:56] LABS: Reflex Lactic Acid Yes or No Add Lactic
[2022-11-26] MEDS: VANCOMYCIN 1,250 MG/NS 250 ML 1,250 MG/250 ML BAG 166.67 MG IVPB (22:56)
[2022-11-27] VITALS (111 sets, daily range): BP systolic 79–169; BP diastolic 36–147; PULSE 83–149; RESP 0–33; TEMP 35.2–37.3; O2SAT 93–98
[2022-11-27] MEDS: DOBUTamine 250 MG/D5W 250 ML 250 MG/250 ML BAG 35.82 MG IV CONT ×2 (00:02→06:50)
[2022-11-27 00:06] LABS: Glucose Point of Care 276 mg/dl (65-105)
[2022-11-27] MEDS: VANCOMYCIN 1,250 MG/NS 250 ML 1,250 MG/250 ML BAG 166.67 MG IVPB (00:30)
[2022-11-27 00:40] LABS: Hematocrit 38.3 % (37.0-47.0); Hemoglobin 13.2 g/dL (12.0-15.0)
[2022-11-27 01:07] LABS: Lactic Acid Reflex 5.6 mmol/L (0.7-2.0)
[2022-11-27] MEDS: EPINEPHrine INJ 4 MG in DEXTROSE 5% IN WATER 250 ML 72.39 MG IV CONT (01:22)
[2022-11-27] MEDS: SODIUM BICARBONATE 8.4% 150 MEQ in WATER, STERILE FOR INJECTION 950 ML 125 MEQ IV CONT (02:59)
[2022-11-27] MEDS: NOREPINEPHRINE 8 MG/D5W 250 ML 8 MG/250 ML BAG 73.13 MG IV CONT (03:10)
[2022-11-27 05:39] LABS: Alveolar/Arterial O2 Gradient 267.3 mmHg; Base Excess ABG -1.6 mEq/l (+/-2.0); Carboxyhemoglobin 0.1 % THb (0-2.0); Fractional Inspired Oxygen 50 %; HCO3 ABG 24.9 mEq/l (22.0-26.0); Methemoglobin ABG 0.3 %THb (0-1.5); Oxygen Content ABG 12.7 %vol (16.0-22.0); PCO2 ABG 48.8 mmHg (35.0-45.0); PO2 FiO2 Ratio Arterial Blood 0.69 %; Reduced Hemoglobin 35.6 %THb (0-5.0); Total Hemoglobin 14.1 g/dL (12.0-18.0); pH ABG 7.325 (7.350-7.450)
[2022-11-27] MEDS: HYDROCORTISONE SODIUM SUCCINATE 100 MG/2 ML VIAL IV PUSH (05:43)
[2022-11-27] MEDS: CENTRAL LINE FLUSH 10 ML IV PUSH (05:43)
[2022-11-27] MEDS: EPINEPHrine INJ 4 MG in DEXTROSE 5% IN WATER 250 ML 38.1 MG IV CONT (06:16)
--- NOTE | 2022-11-27 06:17 | PCRCNOTE ---
RT was unable to obtain abg after multiple attempts
[2022-11-27 06:29] LABS: Hemoglobin 12.5 g/dL (12.0-15.0); Mean Corpuscular HGB Conc 33.8 g/dl (32-36); Mean Corpuscular Hemoglobin 28.7 pg (26-34); Mean Corpuscular Volume 84.9 fl (80-100); Mean Platelet Volume 10.2 fl (7.4-10.4); Platelet Count Result 230 k/mm3 (150-375); Red Blood Count 4.36 M/mm3 (4.2-5.4); Red Cell Distribution Width 15.1 % (11.5-14.5); White Blood Count 24.8 K/mm3 (4.5-10.0)
[2022-11-27] MEDS: NOREPINEPHRINE 8 MG/D5W 250 ML 8 MG/250 ML BAG 71.25 MG IV CONT ×2 (06:32→10:10)
[2022-11-27 06:45] LABS: Alanine Aminotransferase 225 U/L (6-35); Albumin Level 2.3 g/dL (3.5-5.1); Alkaline Phosphatase 38 U/L (38-126); Anion Gap 0 mmol/L (8-16); Aspartate Amino Transferase 499 U/L (14-36); Bilirubin,Total 0.7 mg/dL (0.2-1.3); Blood Urea Nitrogen 23 mg/dL (7-17); Calcium 6.7 mg/dL (8.4-10.2); Carbon Dioxide 33 mmol/L (22-30); Chloride 96 mmol/L (98-107); Estimated CRCL calculation 64 ml/min; Estimated Glomerular Filt Rate > 60; Glucose 174 mg/dL (65-110); Magnesium 1.7 mg/dL (1.6-2.3); Sodium 129 mmol/L (137-145)
[2022-11-27] MEDS: CALCIUM GLUC 2,000 MG/NS 100ML 2,000 MG/100 ML BAG 100 MG IVPB (07:38)
[2022-11-27] MEDS: KCL 40 MEQ/WATER 100 ML 100 ML 25 ML IVPB (07:39)
[2022-11-27 07:49] LABS: Device VENTILATOR; Site Drawn RIGHT BRACHIAL
[2022-11-27 07:52] LABS: Arterial Blood Gas Ventilator rate 22 /MIN
[2022-11-27 07:53] LABS: Arterial Blood Gas PEEP 8 cmH2O; Arterial Blood Gas Pressure Support 0 cmH2O; Arterial Blood Gas Tidal Volume 450 ml; Arterial Blood Gas Vent Mode CMV
[2022-11-27] MEDS: POTASSIUM CHLORIDE 20 MEQ PACKET (FOR LIQUID) 40 MEQ FEED TUBE (08:22)
[2022-11-27] MEDS: KCL 20MEQ/0.9% SOD CHL 1,000 ML 100 ML IV CONT (08:22)
[2022-11-27] MEDS: MAGNESIUM SULF 2 GM/WATER 50ML 2 GM/50 ML BAG IVPB (08:22)
[2022-11-27] MEDS: PHYTONADIONE INJ 10 MG/ML AMP IM (08:24)
[2022-11-27] MEDS: CEFEPIME 1 GM/NS 50 ML 1 GM/50 ML BAG IVPB (08:33)
[2022-11-27] MEDS: MINERAL OIL/WHITE PETROLATUM OINTMENT 1 APPLIC EACH EYE (08:34)
[2022-11-27] MEDS: SODIUM CHLORIDE 0.9% IV 500 ML IV CONT (10:40)
--- NOTE | 2022-11-27 11:40 | PM.PNCARD ---
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 Hemorrhagic shock with likely component of cardiogenic shock. Hgb has improved after blood transfusions, however, still remains on 3 pressors. Patient is critically ill with guarded prognosis. Discussed plan with [employer] Dr. Mcgee, and given critically ill state requiring multiple pressors and hematoma as noted above, patient would be better served at a tertiary care center with Vascular Surgery capabilities in case she worsens from a bleeding standpoint. Transfer to [facility]. (2) ST elevation (STEMI) myocardial infarction: Code(s): I21.3 - ST elevation (STEMI) myocardial infarction of unspecified site Status: Acute Assessment and Plan: Patient underwent emergent cardiac catheterization 11/[address] Gilman which showed 100% thrombotic occlusion of mid RCA - infarct related vessel with diffuse disease in RPL branch; high-grade stenosis in the proximal-mid LAD.? Patient underwent PCI/ALOK x2 mid RCA and RPL branch with alevism of flow. Left ventriculogram showed segmental wall motion abnormality with akinesis of inferior wall, ejection fraction about 50%, LVEDP elevated at 23 mmHg. Continue ASA and Brilinta. Would not stop her DAPT at this time due to risk of stent thrombosis. Will eventually need staged PCI to the proximal-mid LAD stenosis, however, patient is too sick for that at this time. Her cardiac cath images have been transferred onto [facility]. A CD was made as well and placed in chart. 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 Emergency Room with complaints of intermittent episodes of chest pain that started at 11:00 a.m..? Her symptoms were associated with shortness of breath, dizziness, nausea.?Patient's EKG on my personal evaluation showed sinus rhythm, ST-elevation in the inferior leads with reciprocal ST depression.? Cardiac catheterization lab was activated for primary PCI.? Patient was given aspirin, ticagrelor,? atorvastatin, heparin bolus prior to the PCI. Patient underwent emergent cardiac catheterization which showed 100% thrombotic occlusion of mid RCA - infarct related vessel with diffuse disease in RPL branch; high-grade stenosis in the proximal-mid LAD.? Patient underwent PCI/ALOK x2 mid RCA and RPL branch with alevism of flow.? Patient was? hypotensive prior to and during the procedure, was resuscitated with normal saline and received? phenylephrine with improvement in blood pressures to 90s.? Chest pain resolved after primary PCI.? Left ventriculogram showed segmental wall motion abnormality with akinesis of inferior wall, ejection fraction about 50%, LVEDP elevated at 23 mmHg. Date of service 11/26: No issues since PCI. Doing well this morning. Had a brief mild episode of chest pain early this morning, but is currently chest pain free. No shortness of breath. Date of service 11/27: Yesterday afternoon, patient rapidly decompensated. Patient was assisted to sit in the chair by physical therapy. Shortly after, she reported shortness of breath, became tachycardic. Suspicion that she developed pulmonary edema, for which Lasix given. Became cold and clammy, hypotensive, and developed respiratory failure. Ended up getting intubated, started on Levophed and Dobutamine for suspected cardiogenic shock. Continued to have increasing pressor requirements. STAT echo done later in the [facility]
--- NOTE | 2022-11-27 11:53 | PC.NURSE ---
[facility] here to transport to [facility], report called to Lashonda BRUMFIELD , patient going to room 64485. , sister, and daughter at bedside.
--- NOTE | 2022-11-27 12:27 | WPDINTPN ---
Progress Note: A&P Assessment and Plan (1) ST elevation (STEMI) myocardial infarction: Code(s): I21.3 - ST elevation (STEMI) myocardial infarction of unspecified site Status: Acute Assessment and Plan: Status post 1.?Left heart catheterization- Selective left and right coronary angiogram;? left ventriculogram and hemodynamic assessment 2. ? Primary percutaneous coronary intervention- balloon angioplasty and? stenting of totally occluded mid RCA using a 4.0 x 38 mm resolute brett zotarolimus eluting stent (ZES);? balloon angioplasty and stenting of diffuse disease in the? RPL using a 3.0 x 30 mm resolute brett ZES with sikhism of flow. 3.? Deployment of Angio-Seal? 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 Patient does not have any history of hypertension Patient currently asymptomatic and not tachycardic continue IV fluids for now and continue monitoring Monitor urine output (4) Coronary artery disease: Code(s): I25.10 - Atherosclerotic heart disease of [place] coronary artery without angina pectoris Status: Acute Assessment and Plan: Patient has multivessel coronary disease in now status post PCI ALOK of RCA and RPL. She will need staged PCI for LAD lesion prior to discharge as per Cardiology Current management as above (5) Shock: Code(s): R57.9 - Shock, unspecified Status: Acute Assessment and Plan: Mixed hemorrhagic and cardiogenic shock Patient received 2 units of PRBC and IV fluid Continue IV fluids but change to normal saline from IV bicarb Continue Levophed epinephrine and vasopressin Wean dobutamine down to 2.5 mics Continue stress dose hydrocortisone patient was given 500 cc of fluid bolus this morning and she responded improvement in blood pressure I ordered 2 units of FFP Although sepsis is unlikely, yesterday when patient deteriorated patient was started on empiricc vancomycin and cefepime which will be continued for now Blood cultures have been sent and are pending (6) Retroperitoneal hemorrhage: Code(s): R58 - Hemorrhage, not elsewhere classified Status: Acute Assessment and Plan: 11/26 Patient was doing well during the day and was seen by Physical therapy.? Patient was assisted to sit in a chair and later she try to use the commode to have a bowel movement. At that time patient became short of breath, tachycardia and initially hypertensive.? I was asked by nursing staff to come see the patient and patient expressed that she could not breathe and she was complaining of abdominal pain.? Exam patient had diffuse wheezing.? LVEDP on her cardiac catheterization was elevated and she had received fluid and I suspected patient may have developed pulmonary edema.? Patient was given Lasix and bronchodilators.? Patient was cold and clammy.? She complained of pain but was stating the pain was in abdomen on the right side and was different from the pain that she presented with.? I repeated EKG which showed ST elevation in inferior leads.? I showed the EKG and discussed case with Dr. Fletcher.? I give patient morphine for pain and anxiety.? We decided to start patient on nitroglycerin infusion along with Lasix for pulmonary edema.? Patient was placed placed patient on BiPAP.? Patient was initially tachypneic but lat
[2022-11-27 12:48] LABS: Alveolar/Arterial O2 Gradient 254.7 mmHg; Base Excess ABG 2.7 mEq/l (+/-2.0); Oxygen Content ABG 17.9 %vol (16.0-22.0); PCO2 ABG 31.7 mmHg (35.0-45.0); PO2 ABG 66.1 mmHg (80.0-100.0); Total Hemoglobin 13.6 g/dL (12.0-18.0); pH ABG 7.515 (7.350-7.450)
[2022-11-27 12:49] LABS: Arterial Blood Gas PEEP 8 cmH2O; Arterial Blood Gas Tidal Volume 450 ml; Arterial Blood Gas Vent Mode CMV; Arterial Blood Gas Ventilator rate 22 /MIN; Device VENTILATOR; Fractional Inspired Oxygen 50 %; Oxyhemoglobin 93.6 % THb (90.0-100.0); PO2 FiO2 Ratio Arterial Blood 1.32 %; Site Drawn RIGHT BRACHIAL
--- NOTE | 2022-11-27 12:57 | PC.NURSE ---
Patient belongings sent with family
[2022-11-27 13:02] LABS: PO2 ABG 34.3 mmHg (80.0-100.0)
[2022-11-27 13:03] LABS: Oxygen Saturation ABG 60.9 % (95.0-100.0)
--- NOTE | 2022-11-27 15:00 | PM.TDS ---
Transfer Discharge Sum: Prov Provider Date of admission: 11/26/22 00:24 Primary care physician: Bryan Cruz, MD Admitting clinician: Bebeto Gilman MD Attending physician on admission: Bebeto Gilman Consults: 11/25/22 23:51 Consult to Physician Routine Comment: Consulting Provider: Bebeto Gilman fire observer/MD group to consult: Quantitative Analyst Developer convenience recycle center tech Reason for consultation: Stemi Has provider been notified: No 11/26/22 Consult to Physician Routine Comment: Consulting Provider: Damien Mcgee Reason for consultation: shock Has provider been notified: Yes Attending physician on discharge: Xiang Fletcher Discharging clinician: Xiang Fletcher Anticipated date of transfer: 11/27/22 Receiving physician/facility: [facility] DS: Admitting Diagnosis Discharge Date 11/27/22 Admitting Diagnosis STEMI DS: Discharge Diagnosis Discharge Diagnosis (1) Shock: Code(s): R57.9 - Shock, unspecified Status: Acute (2) ST elevation (STEMI) myocardial infarction: Code(s): I21.3 - ST elevation (STEMI) myocardial infarction of unspecified site Status: Acute (3) Retroperitoneal hemorrhage: Code(s): R58 - Hemorrhage, not elsewhere classified Status: Acute (4) Pseudoaneurysm: Code(s): I72.9 - Aneurysm of unspecified site Status: Acute (5) Acute respiratory failure: Code(s): J96.00 - Acute respiratory failure, unspecified whether with hypoxia or hypercapnia Status: Acute Transfer Discharge Sum: Med Medications Active and Home Medications: Home Medications calcium 500 mg tablet 500 mg PO BID 11/26/22 [History Confirmed 11/26/22] mirabegron 25 mg tablet,extended release 24 hr (Myrbetriq) 25 mg PO DAILY 11/26/22 [History Confirmed 11/26/22] naproxen sodium 220 mg tablet (Aleve) 220 mg PO BID PRN Pain 11/26/22 [History Confirmed 11/26/22] tramadol 50 mg tablet 50 mg PO Q4-6H 11/26/22 [History Confirmed 11/26/22] Transfer Discharge Sum: Hosp Hospital Course Hospital course: Patient underwent emergent cardiac catheterization which showed 100% thrombotic occlusion of mid RCA - infarct related vessel with diffuse disease in RPL branch; high-grade stenosis in the proximal-mid LAD.? Patient underwent PCI/ALOK x2 mid RCA and RPL branch with jainism of flow.?On 11/26, patient rapidly decompensated and went into shock requiring multiple pressors. Became cold and clammy, hypotensive, and developed respiratory failure. Ended up getting intubated, started on Levophed and Dobutamine for suspected cardiogenic shock. Continued to have increasing pressor requirements. STAT echo done later in the evening - reviewed by Dr. Cobos which showed mildly reduced LVSF, RV looked okay. No significant MR, no concern for VSD. Hgb came back at 8 (was 14 prior). 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 Patient given blood transfusions. Shock likely combination of hemorrhagic and cardiogenic. Despite improvement in Hgb, patient continued to require multiple pressors. Given she was critically ill, along with her vascular complications, patient was transferred to [facility] for higher level of care. Time Spent with Patient Time attestation: Total time spent providing and/or coordinating transfer services: Exam Narrative: See consult note dated 11/27 for examination.
== END 2022-11-27 12:43 | disposition short-term general hospital (02) | DRG 246 ==
LOC: ANHED 11-26 00:32 → ANHICU 11-26 00:42
PROVIDERS: Internal Medicine; Admitting Provider Internal Medicine Cardiovascular Disease; Emergency Provider Emergency Medicine; PCP Internal Medicine; Visit Provider Internal Medicine
PROC: 4A023N7 Measurement of Cardiac Sampling and Pressure, Left Heart, Percutaneous Approach (ICD-10-PCS; CPT 93452; principal; 2022-11-26 00:05)
PROC: 0271356 Dilation of Coronary Artery, Two Arteries, Bifurcation, with Two Drug-eluting Intraluminal Devices, Percutaneous Approach (ICD-10-PCS; 2022-11-26 00:05)
PROC: 0271356 Dilation of Coronary Artery, Two Arteries, Bifurcation, with Two Drug-eluting Intraluminal Devices, Percutaneous Approach (ICD-10-PCS; 2022-11-26 00:05)
DX: I21.11 ST elevation (STEMI) myocardial infarction involving right coronary artery (principal); J81.0 Acute pulmonary edema; T81.11XA Postprocedural cardiogenic shock, initial encounter; T81.19XA Other postprocedural shock, initial encounter; J95.821 Acute postprocedural respiratory failure; E87.21 Acute metabolic acidosis; I97.190 Other postprocedural cardiac functional disturbances following cardiac surgery; D62 Acute posthemorrhagic anemia; G81.94 Hemiplegia, unspecified affecting left nondominant side; Z68.43 Body mass index [BMI] 50.0-59.9, adult; I97.630 Postprocedural hematoma of a circulatory system organ or structure following a cardiac catheterization; T80.1XXA Vascular complications following infusion, transfusion and therapeutic injection, initial encounter; I97.638 Postprocedural hematoma of a circulatory system organ or structure following other circulatory system procedure; T81.718A Complication of other artery following a procedure, not elsewhere classified, initial encounter; I72.4 Aneurysm of artery of lower extremity; Y83.8 Other surgical procedures as the cause of abnormal reaction of the patient, or of later complication, without mention of misadventure at the time of the procedure; I25.10 Atherosclerotic heart disease of native coronary artery without angina pectoris; I95.89 Other hypotension; Z87.891 Personal history of nicotine dependence; E66.9 Obesity, unspecified
CPT/HCPCS: 31500; 36415; 36430; 36600; 70450; 71045; 71260; 74018; 74177; 80053; 80061; 82375; 82805; 82948; 83036; 83050; 83605; 83735; 83880; 84145; 84484; 85014; 85018; 85025; 85027; 85384; 85610; 85730; 86850; 86900; 86901; 86923; 87040; 87081; 93005; 93306; 93308; 93458; 94002; 94003; 94660; 97162; 97165; 99291; A9270; C1725; C1751; C1760; C1769; C1874; C1887; C1894; C9606; G0269; J0171; J0330; J0583; J0613; J0692; J1250; J1644; J1720; J1940; J2250; J2270; J2370; J3010; J3370; J3430; J3475; J3480; J7030; J7040; J7060; P9016; P9017; Q9967

== ENCOUNTER 2024-06-25 10:25 | Outpatient (CLI) | payer MEDICARE, SELFPAY ==
--- NOTE | 2024-06-28 09:41 | WPDNEUROLOGY ---
Neurology EEG Report General Information Date of Study: 06/25/24 TEST EEG DIAGNOSIS Seizure disorder CONDITION OF RECORDING awake and drowsy. EEG NUMBER [id number] CLINICAL HISTORY Patient states she had an episode about a month ago of seizure-like activity. History of brain aneurysm in 1986 that resulted in left-sided paralysis. EEG DESCRIPTION Background rhythm consists of low-voltage 15 to 18 hertz per 2nd beta activity admixed with low-voltage intermittent 8 -9 hertz per sec beta active. Intermittent right-sided medium voltage 5 to 7 hertz per 2nd theta activity is noted throughout the tracing. Non paroxysmal. Focal. Lateralizing. IMPRESSION Abnormal record due to the presence of intermittent slow activity particularly over the left hemisphere suggestive of underlying focus for the paroxysmal activity. Clinical correlation recommended.
== END 2024-06-25 10:26 | disposition home or self-care (01) ==
DX: G40.909 Epilepsy, unspecified, not intractable, without status epilepticus (principal); R94.01 Abnormal electroencephalogram [EEG]
CPT/HCPCS: 95816

== ENCOUNTER 2024-08-31 14:12 | Observation (INO) | payer MEDICARE, SELFPAY ==
[2024-08-31] VITALS (25 sets, daily range): BP systolic 118–124; BP diastolic 62–75; PULSE 69–100; RESP 13–20; TEMP 36.4; O2SAT 94–100
--- NOTE | ~2024-08-31 | CT_ITS ---
EXAMINATION: CT brain wo con DATE: 08/31/2024 22:23 INDICATION: Dizziness . TECHNIQUE: Computed tomography (CT) of the head was performed without intravenous contrast. The mA wa s adjusted according to patient size. Iterative reconstruction technique was employed. The dose-lengt h product was 681.00 mGy-cm. COMPARISON: 11/26/2022. FINDINGS: No acute intracranial hemorrhage or extra-axial fluid collection. No hydrocephalus, mass, or herniation. No acute ischemic infarct. Unremarkable dural venous sinus attenuation. No acute osseous abnormality. Old right frontal craniotomy. Minimal right mastoid fluid, the remaining aerated spaces are clear. Mild atrophy and chronic white matter change. Atherosclerotic intracranial calcification. Right MCA t erritory encephalomalacia. IMPRESSION: No acute intracranial process. Reviewed, dictated and finalized at location K. CT SALES REPRESENTATIVE
--- NOTE | ~2024-08-31 | US_ITS ---
EXAMINATION: US pelvic complete w TV DATE: 09/01/2024 10:16 INDICATION: Endometrial fluid. TECHNIQUE: Multiple transabdominal and transvaginal sonographic images of the pelvis were obtained. COMPARISON: CT abdomen and pelvis 08/31/2024 FINDINGS: TRANSABDOMINAL ULTRASOUND: The uterus measures 6.1 x 2.4 x 3.3. There is no free fluid in the pelvis. TRANSVAGINAL ULTRASOUND: The endometrial complex measures 9 mm in thickness. The right ovary measures 3.3 x 2.4 x 3.0 cm. The left ovary is not visualized. IMPRESSION: 1. Thickened endometrial complex. The differential diagnosis includes endometrial hyperplasia, polyp, and carcinoma. Biopsy is recommended. Reviewed, dictated and finalized at location A. D MARKETING SPECIALIST IMPRESSION: 1. Thickened endometrial complex. The differential diagnosis includes endometri al hyperplasia, polyp, and carcinoma. Biopsy is recommended.
--- NOTE | ~2024-08-31 | XR_ITS ---
EXAMINATION: XR chest 1V portable Exam Date/Time: 08/31/2024 17:20 MARKETING PROPOSAL COORDINATOR HISTORY: weakness, SOB Comparison: 11/27/2022. RESULT: Lines, tubes, and devices: Cholecystectomy clips. Lungs and pleura: Mild diffuse reticular opacities, otherwise clear. Cardiomediastinal silhouette: Stable. Other: No acute osseous or upper abdominal finding. IMPRESSION: Mild interstitial edema versus senescent changes in the lungs, otherwise no acute cardiopulmonary pro cess detected. Reviewed, dictated and finalized at location K. ETING PROPOSAL COORDINATOR IMPRESSION: Mild interstitial edema versus senescent changes in the lungs, otherwise no acu te cardiopulmonary process detected.
--- NOTE | ~2024-08-31 | CT_ITS ---
EXAMINATION: CT abdomen pelvis w con DATE: 08/31/2024 22:23 INDICATION: Nausea vomiting TECHNIQUE: Computed tomography (CT) of the abdomen and pelvis was performed with 100 mL Omnipaque-350 intravenous contrast. Automated exposure control and iterative reconstruction technique were employe d. The dose-length product was 1463.61 mGy-cm. COMPARISON: None. FINDINGS: Lower thorax: Cardiomegaly. Coronary artery calcifications. Dependent scar/atelectasis. Calcified lef t lower lobe granuloma. Liver: Normal. Biliary/Gallbladder: Gallbladder is absent. No bile duct dilation. Pancreas: No mass or duct dilation. Spleen: Normal. Adrenals:No mass. Kidneys: No suspicious mass, obstructing stone, or hydronephrosis. Exophytic simple right midpole cys t. Bilateral subcentimeter hypodensities that are too small to characterize but most likely represent cysts. GI tract: No small or large bowel dilation. Normal appendix. Minimal diverticulosis without diverticu litis. Mesentery/Peritoneum: No ascites, mass, or free air. Retroperitoneum: No mass. Atherosclerotic calcifications of intra-abdominal arterial vessels. Pelvis: Normal urinary bladder. Somewhat atrophic uterus with apparent fluid in the endometrial canal . Enlarged right ovary, a chronic finding. Normal-appearing left ovary. Soft Tissues: Small uncomplicated fat-containing umbilical and left inguinal hernias. Scar in the sub cutaneous fat over the right inguinal canal Bones: No acute osseous finding. IMPRESSION: Suggestion of endometrial cavity fluid. Chronically enlarged right ovary. Consider nonemergent but [place] pelvic sonography if further evaluation. No acute abdominopelvic process detected. Reviewed, dictated and finalized at location K. ICAL DESIGN ENGINEER IMPRESSION: Suggestion of endometrial cavity fluid. Chronically enlarged right ovary. Consi edita nonemergent but timely pelvic sonography if further evaluation. No acute abdominopelvic process detected.
--- OUTSIDE RECORDS SUMMARY | 2024-08-31 16:25 | XMS_ITS | Clinical Summary ---
Author Organization [facility] Address [facility] [place] [address] Care Team Providers Care Biometrics Instructor Name Role Phone Bryan Cruz MD Primary Care Provider [phone] Allergies No known active allergies Medications aspirin 81 MG chewable tablet TAKE 1 TABLET BY MOUTH DAILY AT 8 AM Active atorvastatin (LIPITOR) 80 MG tablet Take 1 tablet (80 mg total) by mouth daily. Active clopidogrel (PLAVIX) 75 MG tablet Take 1 tablet (75 mg total) by mouth daily. Active JARDIANCE 10 MG tablet Take 1 tablet (10 mg total) by mouth daily. Active losartan (COZAAR) 25 MG tablet Take 1 tablet (25 mg total) by mouth daily. Active melatonin 3 MG tablet TAKE 2 TABLETS BY MOUTH DAILY AT BEDTIME NEEDED FOR INSOMNIA Active traMADol (ULTRAM) 50 MG tablet TAKE 1 TABLET BY MOUTH TWICE A DAY NEEDED - MUST LAST 2 MONTHS Active THERA-M tablet Take 1 tablet by mouth daily. 04/13/2024 Active levETIRAcetam (KEPPRA) 500 MG tabletIndicatio ns:Seizure disorder ([facility]) Take 1 tablet (500 mg total) by mouth 2 (two) times daily. 180 tablet 3 05/14/2024 05/14/20 25 Active Active Problems Problem Noted Date Diagnosed Date Seizure disorder ([facility]/HCC) 04/19/[address] elevation myocardial infarction ([facility]) 09/26/2023 Cellulitis of lower limb 04/08/2023 Skin tag 04/08/2023 Essential hypertension 03/24/2023 Tinea cruris 03/24/2023 Hyperlipidemia 03/17/2023 Vitamin deficiency 03/12/2023 Wound of skin 02/20/2023 Ischemic cardiomyopathy 12/26/2022 Heart failure with mildly re duced ejection fraction (HFmrEF) ([facility]) 12/18/2022 Chest pressure 12/17/2022 Electrolyte abnormality 12/16/2022 Surgical wound infection 12/11/2022 Coronary arteriosclerosis 11/27/2022 AVM (arteriovenous malformation) ([facility]) 11/18 Bunion 11/18/2022 Cerebrovascular accident (CVA) ([facility]) 11/18/2022 History of cerebrovascular accident 11/18/2022 Muscular hypertonicity 11/18/2022 Tinea pedis 11/18/2022 Acute urinary tract infection 10/23/2022 Hematuria 10/23/2022 Ankle joint deformity 10/17/2022 Overactive bladder 10/17/2022 Cough 10/08/2022 Furuncle 03/28/2022 Bilateral impacted cerumen 02/12/2022 Hemiparesis ([facility]) 02/12/2022 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[facility]) 02/12/2022 Osteoarthrosis 02/12/2022 Encounters Date Type Department Care Team Description 07/08/2024 Telephone [facility] - [address], [address] [place] [phone] Alicia Corbin NP Question 06/01/2024 Telephone [facility] - [address], [address] [place] [phone] Alicia Corbin NP Referral from Last 3 Months Social History Tobacco Use Types Packs/Day Years Used Date Smoking Tobacco: Never Smokeless Tobacco: Never Tobacco Cessation:Counseling Given: Not Answered Alcohol Use Standard Drinks/Week Comments Not Currently 0 (1 standard drink = 0.6 oz pur e alcohol) Comments Unknown Sex and Gender Information Value Date Recorded Sex Assigned at Not on file Legal Sex Female 9:11 AM CDT Gender Identity Not on file Sexual Orientation Not on file Last Filed Vital Signs Vital Sign Reading Time Taken Comments Blood Pressure 96/53 05/14/2024 12:51 PM DIRECTOR [employer] Pulse 69 05/14/2024 12:51 PM DIRECTOR [employer] Temperature 36.9 C (98.5 F) 05/14/2024 12:51 PM DIRECTOR [employer] Respiratory Rate - - Oxygen Saturation 98% 05/14/2024 12:51 PM DIRECTOR [employer] Inhaled Oxygen Concentration - - Weight - - Height - - Body Mass Index - - Plan of Treatment Health Maintenance Due Date Last Done Comments ASCVD LDL 1952 Colorectal Cancer Screening Colonoscopy (10 Years) 1952 Hepatitis C 1970 DTaP, Tdap and Td Vaccines ( 1 - Tdap) 1971 Mammogram Screening 1992 Zoster Vaccines (1 of 2) 2002 RSV Immunization or 60+ Years (1 - Risk 60-74 years 1-dose series) 2012 Annual Medicare Wellness Visit 2017 Dexa Scan (General) 2017 Pneumococcal Vaccine: 65+ Years (2 of 2 - PPSV23 or PCV20) 04/09/2022 02/12/2022 COVID-19 Vaccine (4 - 2023-2 5 season) 2024 06/19/2021, 09/24/2020, 09/03/2020 Influenza Adult (#1) 2024 05/16/2023 PHQ-2 (Physician [place]) 07/07/2024 Meningococcal B Vaccine Aged Out No l onger eligible based on patient's age to complete this topic Meningococcal Vaccine Aged Out No aneudy reta eligible based on patient's age to complete this topic RSV Immunizations Under 20 Months Aged Out No longer eligible b ased on patient's age to complete this topic Insurance [facility] Care Teams Biometrics Instructor Relationship Specialty Start Date End Date Bryan Cruz MD [address] [place] [address] PCP - General INTERNAL MEDICINE 04/20/24
--- OUTSIDE RECORDS SUMMARY | 2024-08-31 16:25 | XMS_ITS | Referral Summary ---
Author Organization [facility] Address [address] [place] [address] Care Team Providers Care Engineering Consultant Name Role Phone Bryan Cruz MD Primary Care Provider [phone] Encounters Date Type Department Care Team Description 07/23/2024 Telephone [facility] Cardiology [address] [place] [address] Xiang Fletcher MD from Last 3 Months Allergies No known active allergies Medications aspirin 81 mg chewable tablet Take 1 tablet (81 mg total) by mouth daily 30 tablet 12/04/2022 Active atorvastatin (LIPITOR) 80 mg tablet Take 1 tablet (80 mg total) by mouth daily 30 tablet 12/04/2022 Active losartan (COZAAR) 25 mg tablet Take 1 tablet (25 mg total) by mouth daily 30 tablet 12/04/2022 Active melatonin 5 mg tablet Take 0.4 tablets (2 mg total) by mouth nightly as needed (Insomnia) 0 12/03/2022 Active clopidogreL (PLAVIX) 75 mg tablet Take 1 tablet (75 mg total) by mouth daily 30 tablet 11 01/04/2023 Active empagliflozin (JARDIANCE) 10 mg tablet Take 1 tablet (10 mg total) by mouth daily 30 tablet 01/03/2023 Active traMADoL (ULTRAM) 50 mg tablet Take 1 tablet (50 mg total) by mouth every 6 (six) hours as needed for pain Active levETIRAcetam (KEPPRA) 500 mg tablet Take 1 tablet (500 mg total) by mouth 2 (two) times a day 04/29/2024 Active Active Problems Problem Noted Date Diagnosed Date History of ST elevation myocardial infarction (S AZUL) 09/26/2023 Hyperlipidemia 09/26/2023 Ischemic cardiomyopathy 12/26/2022 Assessment & Plan (12/26/2022 11:34 AM CDT): - STEMI earlier this year (11/2022) with PCI to RCA and RPL - EF now newly reduced with known high grade LAD lesion - Plan for LHC today - Agree with ongoing guideline directed therapy with statin, aspirin, MRA, ARB, BB - Nickerson check for SGLT2i - Will need cardiac rehab at discharge - Will need an appointment with an outpatient commission agent livestock prior to discharge Heart failure with mildly re duced ejection fraction (HFmrEF) 12/18/2022 Assessment & Plan (12/26/2022 4:14 PM CDT): TTE 11/2022 with LVEF 57% G1DD -> now EF 42%. Jjxov-ad-eazaalk exacerbation this admission with pulmonary edema and new O2 requirement, now resolved after diuresis - given newly decreased EF with known LAD stenosis, patient underwent LHC today with placement of 2 ALOK (see CAD) - Continue Lasix 40 mg daily - Continue lisinopril 5 mg, metoprolol 6.25 mg BID, spironolactone 12.5 mg daily. 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 Wound ultures growing pseudomonas. BCx negative. ID previously following. - Complete two week course ciprofloxacin 750 BID (end date 12/26) - Vascular surgery signed off, will follow-up in 6 weeks - Wound care following, wound vac placed 12/18; f/u with wound clinic on discharge Assessment & Plan (12/17/2022 12:03 PM CDT): 72 female with surgical R groin infection after pseudoaneurysm repair (single suture prolene repair), which is superficial and does not track down to the artery and there is no graft material in place. OR cx + PSAR. Recommendations: -Discontinue cefepime. -Start ciprofloxacin 750mg PO q12h, duration 2 weeks from 12/13-12/26 for soft tissue infection. No ID f/u needed. Ciprofloxacin has been associated with nausea, diarrhea, headaches, insomnia, restlessness, dizziness. Rarely, it may be associated with tendon rupture (particularly in patients over the age of 60, those concurrently on steroids, and heart/lung/kidney transplant recipients), photosensitivity, QTc prolongation, transaminase elevation, peripheral neuropathy, seizures, interstitial nephritis. CBC and CMP should be monitored weekly while on this medication. Do not take this antibiotic with milk or other calcium enriched drinks or products such as fortified orange juice or Tums. Do not take with antacids, multivitamins, iron tablets, magnesium, or aluminum. If you must take the aforementioned products, take them 2 hours after or 6 hours before taking the antibiotic. Assessment & Plan (12/18/2022 8:30 AM CDT): - Underwent Right EQUIPMENT OR MACHINERY CLEANER repair on 11/28/22, dc'd to rehab on 12/03. Returns with wound dehiscence. - Broad spectrum IV antibiotics, ID consulted - OR cultures with rare Pseudomonas aeruginosa; dropped vancomycin 12/16 per ID. Plan to DC on cipro 750mg q12h x2 weeks 12/13-12/26 - Blood cultures no growth, finalized - OR cancelled 12/12 2/2 pt eating breakfast - OR 12/13 for right groin wound debridement and vac placement. Cultures sent and positive for rare pseudomonas - Vac clotted off- BID Vashe WTD to R groin, plan to replace Monday 12/18, wound RN team updated. - No further surgical plans at this time for R groin wound as long as R groin continues to progress well and demonstrates no signs of breakdown or infection. CAD (coronary artery disease) 11/27/2022 Assessment & Plan (12/26/2022 4:17 PM CDT): -Admitted 11/27 for STEMI. [facility] with 100% occlusion of the mid-RCA with balloon angioplasty and ALOK placement. RPL lesion stented. High-grade stenosis of prox LAD. -Echo 12/23 showed newly reduced EF 42% -> decision made for [facility] cath today with 2 ALOK to LAD -continue ASA, Plavix, statin -continue metoprolol 6.25 mg BID, lisinopril 5 mg daily Assessment & Plan (12/16/2022 7:16 AM CDT): Recent STEMI s/p PCI at OSH on 11/26/22 complicated by R EQUIPMENT OR MACHINERY CLEANER pseudoaneurysm (see separate problem). - Continue asa, statin, coreg, Brilinta - Telemetry Resolved Problems Problem Noted Date Diagnosed Date Resolved Date Hypokalemia 12/18/2022 12/26/2022 Assessment & Plan (12/19/2022 10:16 AM CDT): Hypokalemia in the setting of large volume diuresis. - Supplementation PRN Acute hypoxemic respiratory failure 12/17/2022 12/25/2022 Assessment & Plan (12/24/2022 3:06 PM CDT): Patient with new oxygen requirement and increased dyspnea at rest on 12/17 for which medicine was consulted. Transferred to medicine team 12/18. Troponin 72>77>62 BNP 5020 CXR with evidence of hypervolemia and diffuse edema of the extremities. TTE 11/2022 LVEF 57% GIDD. - Now off oxygen, transitioned to Lasix 40 mg daily - TTE shows EF 42% down from 57% - will discuss with cardiology Assessment & Plan (12/18/2022 8:32 AM CDT): - Prior to admission for STEMI 11/2022, was not on home O2 - Required 2-4L per NC during hospitalization 11/2022 - Pt endorsing SOB with any activity or movement, lasix and CXR pending - Internal Medicine consulted for assistance with workup/pulmonary optimization - EKG without obvious ischemia, trop 72 -> 77 - Aggressive diuresis started with 40IV lasix BID; pt diuresed >6L 12/17 after lasix initiated, feeling much better - Gold placed for strict I&O - Plan to transfer to Medicine service for optimization and management before returning to Rehab Social History Tobacco Use Types Packs/Day Years Used Date Smoking Tobacco: Former Cigarettes Tobacco Cessation:Counseling Given: Not Answered Social Connection and Isolat ion Panel [NHANES] Answer Date Recorded In a typical week, how many times do you talk on the phone with family, friends, or neighbors? More than three times a week 12/19/2022 How often do you get togethe r with friends or relatives? More than three times a week 12/19/2022 How often do you attend chur ch or synagogue services? More than 4 times per year 12/19/2022 Do you belong to any clubs o r organizations such as christian groups, unions, fraternal or athletic groups, or school groups? No 12/19/2022 How often do you attend meet ings of the clubs or organizations you belong to? Never 12/19/2022 Are you , , di vorced, , never , or living with a partner? Living with partner 12/19/2022 Overall Financial Resource Strain (CARDIA) Answe r Date Recorded How hard is it for you to pa y for the very basics like food, housing, medical care, and heating? Not hard at all 12/19/2022 PHQ-2 Answer Date Recorded PHQ-2 Total Score (If total score is 3 or more points, staff should administer the PHQ-9) 0 12/19/2022 Hunger Vital Sign Answer Date Recorded Within the past 12 months, y ou worried that your food would run out before you got the money to buy more. Never true 12/20/19 23 Within the past 12 months, t he food you bought just didn't last and you didn't have money to get more. Never true 12/19/2022 PRAPARE - Transportation Answer Date Re corded In the past 12 months, has l ack of transportation kept you from medical appointments or from getting medications? No 12/05 In the past 12 months, has l ack of transportation kept you from meetings, work, or from getting things needed for daily living? No 12/19/2022 Housing Stability Vital Sign Answer Karl e Recorded In the last 12 months, was t here a time when you were not able to pay the mortgage or rent on time? No 12/19/2022 In the last 12 months, how many places have you lived? 1 12/19/2022 In the last 12 months, was t here a time when you did not have a steady place to sleep or slept in a long term (including now)? No 12/19/2022 Personal Safety Answer Date Recorded Have you ever been in or are you currently in a harmful physical or emotional relationship or is someone making you feel afraid or unsafe? Denies 12/12/2022 Comments No Sex and Gender Information Value Date Recorded Sex Assigned at Not on file Legal Sex Female 9:53 AM CDT Gender Identity Not on file Sexual Orientation Not on file Last Filed Vital Signs Vital Sign Reading Time Taken Comments Blood Pressure 100/48 05/06/2024 1:23 PM CDT Pulse 73 05/06/2024 1:23 PM CDT Temperature 36.8 C (98.2 F) 02/24/2023 10:55 AM CDT Respiratory Rate 20 01/03/2023 8:15 AM CDT Oxygen Saturation 94% 05/06/2024 1:23 PM CDT Inhaled Oxygen Concentration - - Weight 88.5 kg (195 lb) 05/06/2024 1:23 PM CDT Height 157.5 cm (5' 2 ) 05/06/2024 1:23 PM CDT Body Mass Index 35.67 05/06/2024 1:23 PM CDT Plan of Treatment Not on file Medical Devices Implanted Type Area Television News Photographer Device Identifier Shelf Expiration Date Model / Serial / Lot Medtronic Card Vasc Surgery 2.75 X 26mm [employer]hil [employer] Rx Coronary Stent [id number] - [id number] - [id number] Implanted:Qty : 1 on 12/26/2022 by Nico Zurita MD at [facility] Stent Left: Anterior Descending Cornary Artery Medtronic Card Vasc Surgery 11/19/2023 [id number] / [id number] / [id number] Medtronic Card Vasc Surgery 2.25 X 22mm [employer]hil [employer] Rx Coronary Stent [id number] - [id number] - [id number] Implanted:Qty : 1 on 12/26/2022 by Nico Zurtia MD at [facility] Stent Left: Anterior Descending Cornary Artery Medtronic Card Vasc Surgery 11/28/2023 [id number] / [id number] / [id number] Procedures Procedure Name Priority Date/Time Associated Diagnosis Comments HEPATITIS PANEL, ACUTE Routine 12/28/2022 8:27 PM CDT from Last 3 Months or Most Recently Relevant to Health Maintenance Results * Hepatitis panel, acute (12/28/2022 8:27 PM CDT) Hep A IgM Nonreactive Nonreactive [facility] Hep B core IgM Nonreactive Nonreactive [facility] Hep C Ab Nonreactive Nonreactive [facility] Comment:Antibodies to HCV no t detected. Does NOT exclude the possibility of recent exposure to HCV. Current interpretive data was last revised on 22 HepBsAg Nonreactive Nonreactive [facility] Blood 12/28/2022 8:27 PM CDT 12/28/2022 10:02 PM CDT us David Thornton MD LAB MICROBIOLOGY - GENERAL OR DERABLES Final Result [facility] [place] [address] from Last 3 Months or Most Recently Relevant to Health Maintenance Insurance [employer] MEDICARE [employer] Advance Directives For more information, please contact: [phone] * Full Code (Latest Code Status on File) Date Activated Date Inactivated Comments 12/12/2022 12:00 AM 01/03/2023 6:37 PM * Full Code Date Activated Date Inactivated Comments 11/27/2022 1:53 PM 12/03/2022 9:50 PM Care Teams Engineering Consultant Relationship Specialty [place] [address] [place] [id number] PCP - General Internal Medicine 11/26/22
--- OUTSIDE RECORDS SUMMARY | 2024-08-31 16:26 | XMS_ITS | Data Portability ---
Author Organization [facility] nooked, Main Office Address [address] [place] [address] Care Team Providers Care Stockbroking Dealer Name Role Phone LILA POWERS Primary Care Provider Assessment No assessment recorded. Plan of Treatment Reminders Order Date Submit Date Provider Last Modified By Organization Details Last Modified Time Details Appointments Solv Use Only_Foll ow_Up 2024 11:15A Skylar Powers MD Not available Not available Not available Medicare Wellness 15 2024 10:30A Skylar Powers MD Not available Not available Not available Lab vitamin D, 25-hydrox y, total, serum [address] (Lab), [address] [place], [address], 11/04/2023 09:50:32 urinalysi s, complete [address] (Lab), [address] [place], [address], 11/04/2023 09:50:32 CMP, serum or plasma [address] (Lab), [address] [place], [address], 11/04/2023 09:50:31 lipid panel, serum [address] (Lab), [address] [place], [address], 11/04/2023 09:50:32 [facility] w[email or web address] [address] [place], [address], 11/04/2023 09:50:32 Referral None recorded. Procedures None recorded. Surgeries None recorded. Imaging MAMMO, screening , digital, bilateral 2023 024 [email or web address] [id number] [facility] ([facility] Scheduling), [address] [place], [address], 11/11/2023 09:35:35 Medication Orders tramadol 50 mg tablet 2023 024 RODRICK [id number], [address], [place], [address], 06/08/2024 12:53:42 Myrbetriq 50 mg tablet,ex tended release 2023 024 [email or web address] [id number], [address], [place], [address], 04/26/2024 16:32:20 doxycycli ne hyclate 100 mg tablet 2022 023 [email or web address] [id number], [address], [place], [address], 06/20/2023 12:15:57 Patient TargetsNo targets recorded. Patient Instructions Encounter Date Encounter Id Patient Instructions Last Modified By Organization Details Last Modified Time 03/03/2024 [id number] dementia rating scale-2* Not available 03/03/2024 14:47:54 Timed Up and Go test (TUG)* Not available 03/03/2024 14:47:54 depression screening* Not available 03/03/2024 14:47:54 alcohol misuse* Not available 03/03/2024 14:47:54 multi-dimensiona l health assessment questionnaire* Not available 03/03/2024 14:47:54 advance directiv es: care instructions Not available 03/03/2024 14:47:54 advance care planning: care instructions Not available 03/03/2024 14:47:54 [place] Advance Directives Not available 03/03/2024 14:47:55 Personalized Hea lt Plan and Screening Recommendations Advance Directives - Do you have one? No You have indicated that you are capable of preparing your advance care directive Advance Directives - Do we have your advance directive on file in your health record? No, please bring in a copy at your earliest convenience Primary Prevention/Interven tion (prevents or decreases the chance of common diseases from occurring) Smoking Risk: Non Smoker Alcohol Misuse Screening: Negative Weight: Appropriate Overwei ght continue your current weight loss efforts Physical activity: Need more exercise/physical activity minimum of 10-20 minutes of activity that causes mild breathlessness/day Nutrition: Good Average Refer to attached handout Heart-Healthy Diet: After Your Visit Fall Risk (screened today): Low Refer to attached handout Preventing Falls: After your Visit Vaccines Pneumococcal: Influenza: Your next one in the fall of this year Chronic Disease Risks Stroke: Low Risk Intermediate Risk I have no recommendations Act magdiel diagnosis, Continue current treatment plan Heart Attack: Low risk Intermediate Risk I have no recommendations Act magdiel diagnosis, Continue current treatment plan Clogging of the Arteries: Low risk Intermediate Risk I have no recommendations Act magdiel diagnosis, Continue current treatment plan Diabetes: Low Risk I have no recommendations Secondary Prevention/Interven tion (detects treatable diseases before they may cause symptoms, disability, or ) Breast Cancer Screening with mammogram: No screening necessary Cervical/Uterine/Ov soto Cancer Screening: No screening necessary Osteoporosis Screening: Date Screening Last Performed: _2021 Colon Cancer Screening: Colonoscopy In: Ordered Recomme nded Date Screening Last Performed: unspecified Eye Disease Screening: Dementia Risk: Low I have no recommendations Depression Screening: Negative [email or web address] Not available 03/03/2024 14:09:30 Reason for Referral None Reported. Results Created Date Observation Date Name Description Value Unit Range Abnormal Flag Note LastModifiedBy Organization Detail LastModifiedTime 11/13/19 24 11/13/2023 COMPR EHENS MAGDIEL METAB OLIC PANEL sodium 137 mmol/ L 137-14 5 Not Available [facility] (Lab) [address] [place], [address], 11/13/2023 20:31:12 11/13/19 24 11/13/2023 COMPR EHENS MAGDIEL METAB OLIC PANEL potassium 4.2 mmol/ L 3.5-5. 1 Not Available [facility] (Lab) [address] [place], [address], 11/13/2023 20:31:12 11/13/19 24 11/13/2023 COMPR EHENS MAGDIEL METAB OLIC PANEL chloride 106 mmol/ L 98-107 Not Available [facility] (Lab) [address] [place], [address], 11/13/2023 20:31:12 11/13/19 24 11/13/2023 COMPR EHENS MAGDIEL METAB OLIC PANEL carbon dioxide 27 mmol/ L 22-30 Not Available [facility] (Lab) [address] [place], [address], 11/13/2023 20:31:12 11/13/19 24 11/13/2023 COMPR EHENS MAGDIEL METAB OLIC PANEL anion gap 8.2 mmol/ L 14-22 low Not Available [facility] (Lab) [address] [place], [address], 11/13/2023 20:31:12 11/13/19 24 11/13/2023 COMPR EHENS MAGDIEL METAB OLIC PANEL glucose 92 mg/dL 70-99 Not Available [facility] (Lab) [address] [place], [address], 11/13/2023 20:31:12 11/13/19 24 11/13/2023 COMPR EHENS MAGDIEL METAB OLIC PANEL BUN 22 mg/dL 8-19 high Not Available [facility] (Lab) [address] [place], [address], 11/13/2023 20:31:12 11/13/19 24 11/13/2023 COMPR EHENS MAGDIEL METAB OLIC PANEL creatinine 0.64 mg/dL 0.66-1 .25 low Not Available [facility] (Lab) [address] [place], [address], 11/13/2023 20:31:12 11/13/19 24 11/13/2023 COMPR EHENS MAGDIEL METAB OLIC PANEL GFR >60 Refer ence Range : [place] ge GFR Healt hy Adult : >60 mL/mi n/1.7 3 m2 Chron ic Kidne y Disea se: 15-60 mL/mi n/1.7 3 m2 Kidne y Failu re: <15/m L/min /1.73 m2 www.n iddk. nih.g ov The MDRD study equat ion has not been valid ated in child don <18 years of age; pregn ant women ; the elder ly >85 years of age; or in some racia l or ethni c subgr oups, such as Hiswy nics. Outsi de the valid ated john eters , estim ated GFR is less accur ate, requi ring clini lorena judgm ent on a case- by-ca se basis . Clini lorena inter preta tion for other races and ages must be made by the clini gabo. The MDRD study equat ion has not been valid ated for the evalu ation of serum creat inine relat ed to nutri amauri l statu s or medic ation usage . For perso ns <18 years of age, a pedia tric GFR calcu lator is avail able on the [facility] websi te: https ://avtar kemp.shana sorenson/pr ofess ional s/kdo qi/gf r_cal culat or Not Available [facility] (Lab) [address] [place], [address], 11/13/2023 20:31:12 11/13/19 24 11/13/2023 COMPR EHENS MAGDIEL METAB OLIC PANEL alkaline phosphatase 80 U/L 38-126 Not Available [facility] (Lab) [address] [place], [address], 11/13/2023 20:31:12 11/13/19 24 11/13/2023 COMPR EHENS MAGDIEL METAB OLIC PANEL alanine aminotransfe rase 26 U/L 0-35 Not Available [facility] (Lab) [address] [place], [address], 11/13/2023 20:31:12 11/13/19 24 11/13/2023 COMPR EHENS MAGDIEL METAB OLIC PANEL aspartate aminotransfe rase 33 U/L 15-37 Not Available [facility] (Lab) [address] [place], [address], 11/13/2023 20:31:12 11/13/19 24 11/13/2023 COMPR EHENS MAGDIEL METAB OLIC PANEL bilirubin, total 0.50 mg/dL 0.20-1 .30 Not Available [facility] (Lab) [address] [place], [address], 11/13/2023 20:31:12 11/13/19 24 11/13/2023 COMPR EHENS MAGDIEL METAB OLIC PANEL calcium 9.2 mg/dL 8.4-10 .2 Not Available [facility] (Lab) [address] [place], [address], 11/13/2023 20:31:12 11/13/19 24 11/13/2023 COMPR EHENS MAGDIEL METAB OLIC PANEL total protein 6.4 g/dL 6.3-8. 2 Not Available [facility] (Lab) [address] [place], [address], 11/13/2023 20:31:12 11/13/19 24 11/13/2023 COMPR EHENS MAGDIEL METAB OLIC PANEL albumin 3.9 g/dL 3.0-4. 4 Not Available [facility] (Lab) [address] [place], [address], 11/13/2023 20:31:12 11/13/19 24 11/13/2023 COMPR EHENS MAGDIEL METAB OLIC PANEL globulin 2.5 g/dL 2.6-4. 2 low Not Available [facility] (Lab) [address] [place], [address], 11/13/2023 20:31:12 11/13/19 24 11/13/2023 COMPR EHENS MAGDIEL METAB OLIC PANEL A/G ratio 1.6 ratio 1.0-2. 0 Not Available [facility] (Lab) [address] [place], [address], 11/13/2023 20:31:12 11/13/19 24 11/13/2023 LIPID PANEL cholesterol 148 mg/dL 140-19 9 NIH MARU NSUS RECOM MENDA TION FOR SAMIRA STERO L: ADULT CHILD LOW RISK: <200 <170 BORDE RLINE : <200- 239 ----- HIGH RISK: >240 >200 Not Available [facility] (Lab) [address] [place], [address], 11/13/2023 20:31:16 11/13/19 24 11/13/2023 LIPID PANEL triglyceride s 85 mg/dL 0-150 NIH MARU NSUS REPOR T RECOM MENDA TION FOR TRIGL YCERI ALOK: ADULT CHILD LOW RISK: <150 ----- BODER LINE: 150-1 99 ----- HIGH RISK: >200 ----- Not Available [facility] (Lab) [address] [place], [address], 11/13/2023 20:31:16 11/13/19 24 11/13/2023 LIPID PANEL HDL cholesterol 76 mg/dL 40- Not Available [facility] (Lab) [address] [place], [address], 11/13/2023 20:31:16 11/13/19 24 11/13/2023 LIPID PANEL LDL cholesterol, calculated 55 mg/dL 0-130 NIH MARU NSUS REPOR T RECOM MENDA TIONS FOR LDL: ADULT CHILD LOW RISK <130 <110 (OPTI MAL LDL) <100 ----- ZION RLINE : 130-1 59 ----- HIGH RISK: >160 >130 A TRIGL YCERI DE RESUL T >400 INVAL IDATE S THE CALCU LATIO N FOR LDL FRACT IONAT ION - THE LDL RESUL T WILL NOT BE REPOR [place]. Not Available [facility] (Lab) [address] [place], [address], 11/13/2023 20:31:16 11/13/19 24 11/13/2023 CBC/C OMPLE TE BLD COUNT W/DIF F white blood cells 9.6 x10'3 /uL 4.2-10 .8 Not Available [facility] (Lab) [address] [place], [address], 11/13/2023 20:50:41 11/13/19 24 11/13/2023 CBC/C OMPLE TE BLD COUNT W/DIF F red blood cells 5.14 x10'6 /uL 3.80-5 .20 Not Available [facility] (Lab) [address] [place], [address], 11/13/2023 20:50:41 11/13/19 24 11/13/2023 CBC/C OMPLE TE BLD COUNT W/DIF F hemoglobin 17.1 g/dL 12.0-1 5.6 high Not Available [facility] (Lab) [address] [place], [address], 11/13/2023 20:50:41 11/13/19 24 11/13/2023 CBC/C OMPLE TE BLD COUNT W/DIF F hematocrit 51.8 % 35.7-4 5.7 high Not Available [facility] (Lab) [address] [place], [address], 11/13/2023 20:50:41 11/13/19 24 11/13/2023 CBC/C OMPLE TE BLD COUNT W/DIF F mean red cell volume 100.8 fL 82.0-9 9.0 high Not Available [facility] (Lab) [address] [place], [address], 11/13/2023 20:50:41 11/13/19 24 11/13/2023 CBC/C OMPLE TE BLD COUNT W/DIF F mean red cell hemoglobin 33.3 pg 27.0-3 3.0 high Not Available [facility] (Lab) [address] [place], [address], 11/13/2023 20:50:41 11/13/19 24 11/13/2023 CBC/C OMPLE TE BLD COUNT W/DIF F mean RBC HGB concentratio n 33.0 g/dL 31.0-3 6.0 Not Available [facility] (Lab) [address] [facility] [place], [address], 11/13/2023 20:50:41 11/13/19 24 11/13/2023 CBC/C OMPLE TE BLD COUNT W/DIF F red cell distribution width 13.9 % 11.8-1 5.5 Not Available [facility] (Lab) [address] [place], [address], 11/13/2023 20:50:41 11/13/19 24 11/13/2023 CBC/C OMPLE TE BLD COUNT W/DIF F platelets 213 x10'3 /uL 150-40 0 Not Available [facility] (Lab) [address] [place], [address], 11/13/2023 20:50:41 11/13/19 24 11/13/2023 CBC/C OMPLE TE BLD COUNT W/DIF F mean platelet volume 11.3 fL 9.0-12 .4 Not Available [facility] (Lab) [address] [place], [address], 11/13/2023 20:50:41 11/13/19 24 11/13/2023 CBC/C OMPLE TE BLD COUNT W/DIF F neutrophils 64.0 % 39.0-7 2.0 Not Available [facility] (Lab) [address] [place], [address], 11/13/2023 20:50:41 11/13/19 24 11/13/2023 CBC/C OMPLE TE BLD COUNT W/DIF F lymphocytes 25.1 % 16.0-4 7.0 Not Available [facility] (Lab) [address] [place], [address], 11/13/2023 20:50:41 11/13/19 24 11/13/2023 CBC/C OMPLE TE BLD COUNT W/DIF F monocytes 8.1 % 5.0-12 .0 Not Available [facility] (Lab) [address] [place], [address], 11/13/2023 20:50:41 11/13/19 24 11/13/2023 CBC/C OMPLE TE BLD COUNT W/DIF F eosinophils 1.6 % 1.0-7. 0 Not Available [facility] (Lab) [address] [place], [address], 11/13/2023 20:50:41 11/13/19 24 11/13/2023 CBC/C OMPLE TE BLD COUNT W/DIF F basophils 0.8 % 0.0-2. 0 Not Available [facility] (Lab) [address] [place], [address], 11/13/2023 20:50:41 11/13/19 24 11/13/2023 CBC/C OMPLE TE BLD COUNT W/DIF F immature granulocytes 0.4 % 0.00-0 .50 Not Available [facility] (Lab) [address] [place], [address], 11/13/2023 20:50:41 11/13/19 24 11/13/2023 CBC/C OMPLE TE BLD COUNT W/DIF F neutrophils, absolute count 6.12 x10'3 /uL 1.5-8. 0 Not Available [facility] (Lab) [address] [place], [address], 11/13/2023 20:50:41 11/13/19 24 11/13/2023 CBC/C OMPLE TE BLD COUNT W/DIF F lymphocytes, absolute count 2.40 x10'3 /uL 1.07-3 .43 Not Available [facility] (Lab) [address] [place], [address], 11/13/2023 20:50:41 11/13/19 24 11/13/2023 CBC/C OMPLE TE BLD COUNT W/DIF F monocytes, absolute count 0.77 x10'3 /uL 0.29-0 .99 Not Available [facility] (Lab) [address] [place], [address], 11/13/2023 20:50:41 11/13/19 24 11/13/2023 CBC/C OMPLE TE BLD COUNT W/DIF F eosinophils, absolute count 0.15 x10'3 /uL 0.02-0 .53 Not Available [facility] (Lab) [address] [place], [address], 11/13/2023 20:50:41 11/13/19 24 11/13/2023 CBC/C OMPLE TE BLD COUNT W/DIF F basophils, absolute count 0.08 x10'3 /uL 0.01-0 .08 Not Available [facility] (Lab) [address] [place], [address], 11/13/2023 20:50:41 11/13/19 24 11/13/2023 CBC/C OMPLE TE BLD COUNT W/DIF F immature granulocytes ,absolute 0.04 x10'3 /uL 0.00-0 .05 Not Available [facility] (Lab) [address] [place], [address], 11/13/2023 20:50:41 11/13/19 24 11/13/2023 CBC/C OMPLE TE BLD COUNT W/DIF F nucleated red blood cells 0.0 % -0 Not Available [facility] (Lab) [address] [place], [address], 11/13/2023 20:50:41 11/13/19 24 11/13/2023 CBC/C OMPLE TE BLD COUNT W/DIF F NRBC# 0.00 x10'3 /uL Not Available [facility] (Lab) [address] [place], [address], 11/13/2023 20:50:41 11/13/19 24 11/13/2023 URINA LYSIS COMPL ETE, IRIS color YELLOW Not Available [facility] (Lab) [address] [place], [address], 11/13/2023 21:05:16 11/13/19 24 11/13/2023 URINA LYSIS COMPL ETE, IRIS appear TURBID abnormal Not Available [facility] (Lab) [address] [place], [address], 11/13/2023 21:05:16 11/13/19 24 11/13/2023 URINA LYSIS COMPL ETE, IRIS specific gravity 1.011 1.001- 1.030 Not Available [facility] (Lab) [address] [place], [address], 11/13/2023 21:05:16 11/13/19 24 11/13/2023 URINA LYSIS COMPL ETE, IRIS pH 7.5 pH_un its 5.0-9. 0 Not Available [facility] (Lab) [address] [place], [address], 11/13/2023 21:05:16 11/13/19 24 11/13/2023 URINA LYSIS COMPL ETE, IRIS leukocytes NEGATI VE katherine/u L negati ve- Not Available [facility] (Lab) [address] [place], [address], 11/13/2023 21:05:16 11/13/19 24 11/13/2023 URINA LYSIS COMPL ETE, IRIS nitrite NEGATI VE negati ve- Not Available [facility] (Lab) [address] [place], [address], 11/13/2023 21:05:16 11/13/19 24 11/13/2023 URINA LYSIS COMPL ETE, IRIS protein NEGATI VE mg/dL negati ve- Not Available [facility] (Lab) [address] [place], [address], 11/13/2023 21:05:16 11/13/19 24 11/13/2023 URINA LYSIS COMPL ETE, IRIS glucose >/=100 0 mg/dL normal - abnormal Not Available [facility] (Lab) [address] [place], [address], 11/13/2023 21:05:16 11/13/19 24 11/13/2023 URINA LYSIS COMPL ETE, IRIS ketones NEGATI VE mg/dL negati ve- Not Available [facility] (Lab) [address] [place], [address], 11/13/2023 21:05:16 11/13/19 24 11/13/2023 URINA LYSIS COMPL ETE, IRIS urobilinogen NORMAL mg/dL normal - Not Available [facility] (Lab) [address] [place], [address], 11/13/2023 21:05:16 11/13/19 24 11/13/2023 URINA LYSIS COMPL ETE, IRIS bilirubin NEGATI VE mg/dL negati ve- Not Available [facility] (Lab) [address] [place], [address], 11/13/2023 21:05:16 11/13/19 24 11/13/2023 URINA LYSIS COMPL ETE, IRIS blood >/=1.0 mg/dL negati ve- abnormal Not Available [facility] (Lab) [address] [place], [address], 11/13/2023 21:05:16 11/13/19 24 11/13/2023 URINA LYSIS COMPL ETE, IRIS white blood cells NONE /i??h pfi?? 0-8 Not Available [facility] (Lab) [address] [facility] [place], [address], 11/13/2023 21:05:16 11/13/19 24 11/13/2023 URINA LYSIS COMPL ETE, IRIS red blood cells PACKED /i??h pfi?? 0-4 abnormal Not Available [facility] (Lab) [address] [place], [address], 11/13/2023 21:05:16 11/13/19 24 11/13/2023 URINA LYSIS COMPL ETE, IRIS bacteria NONE Not Available [facility] (Lab) [address] [place], [address], 11/13/2023 21:05:16 11/13/19 24 11/13/2023 URINA LYSIS COMPL ETE, IRIS squamous epithelial OCCASI ONAL /i??l pfi?? abnormal Not Available [facility] (Lab) [address] [place], [address], 11/13/2023 21:05:16 11/13/19 24 11/13/2023 URINA LYSIS COMPL ETE, IRIS hyaline cast OCCASI ONAL /i??l pfi?? none seen- abnormal Not Available [facility] (Lab) [address] [place], [address], 11/13/2023 21:05:16 11/13/19 24 11/13/2023 VITAM IN D 25-HY DROXY vd25oh 41.8 NG/mL 30-100 Vitam in D Statu s: Defic ient: <20 ng/mL Insuf ficie nt: 20-29 ng/mL Suffi cient : 30-10 0 ng/mL Not Available [facility] (Lab) [address], [place], [address], 11/13/2023 21:43:54 11/19/19 24 11/18/2023 MAMMO , scree pratima, digit al, bilat eral [facility] [place] [address], [place] [address] Patien t Name: WEN MARCELO Access ion #: [id number] Sex: F : 1949 6 Locati on: RAD Attend ing Physic jeremiah: [facility] Orderi ng Physic jeremiah: [facility] Exam Date: 10:38 AM Exam Name: MG DIG MAMMO SCRN BILAT Admitt ing Diagno sis(es ): MAMMOG JAQUELINE REPORT - FINAL EXAM: MG DIG MAMMO SCRN BILAT HISTOR Y: SCREEN ING MAMMOG NIKOLE 73-yea r-old female with no curren t breast compla ints. COMPAR GALE: 2021, 2018 TECHNI QUE: Bilate ral CC and MLO views of the breast s were perfor med. Digita l Mammog jaqueline images were obtain ed. CAD (compu ter assist ed detect ion) was utiliz ed. FINDIN GS: The breast s are almost entire ly fatty. No new masses , develo ping asymme tries, suspic ious calcif icatio ns, or alyssa ectura l distor tion are seen. Page 1 of 2 [facility] [place] Paticharles t Name: WEN MARCELO Access ion #: [id number] Sex: F : 1949 8 Exam Date: 10:38 AM Exam Name: MG DIG MAMMO SCRN BILAT Admitt ing Diagno sis(es ): IMPRES SALVADOR: BIRADS 1: Assess ment comple te. Negati ve. Recomm end annual screen ing mammog jaqueline. Accord ing to the [employer], yearly mammog dara are recomm ended starti ng at age 40 and contin uing as long as the woman is in good health . Clinic al Breast Exam should be part of the period ic health exam-a bout every 3 years for women in their 20s and 30s and every year for women 40 and over. Breast self-e xam is an option for women in their 20s. Any breast change noted on the breast self-e xam she would be report ed prompt ly to the [facility] er. A negati ve mammog jaqueline report should not discou rage follow -up or biopsy of a clinic ally signif icant findin g and/or abnorm ality. Dense breast tissue may obscur e small neopla sms. This [facility] has been entere d into a mammog jaqueline remind er system with a target date for her next mammog nikole. Create d and electr onical ly signed by: Karthikeyan soler MD Signed Date: 8:19 AM (CT) Dictat ed by: Karthikeyan soler MD DD: 8:19 AM (CT) DT: 8:19 AM (CT) Page 2 of [address] (Imaging) [address] [place] [address], [address], 03/03/2024 11:32:10 Result Notes None recorded. Problems Name Problem SNOMED Code Status Onset Date Resolution Date Notes Provider Name and Address Organization Details Recorded Time Impacted cerumen of bilateral ears 22356344600 42806 Completed 202110/22/2022 VERENICE Mcbride [employer] [facility] nooked 09:09:48 Impacted cerumen of bilateral ears 35315767914 94707 Completed 202103/28/2022 VERENICE Mcbride [employer] Tatyana VilynxS nooked 3 09:09:48 Hemipares is 12457312 Active 2021 Not Available [facility] 3 00:59:00 Osteoarth ritis 328002454 Active 2021 Not Available [facility] 3 00:59:00 Furuncle 491528977 Active 2021 Mckenna Girard n, RMA null, [place] [facility] 3 09:10:04 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 54902106802 4104 Active 2021 Not Available [facility] 3 00:59:00 Cough 14155023 Completed 202210/22/2022 Mckenna garcia, RMA null, [place] [facility] 3 09:09:41 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 Mckenna garcia, RMA null, [place] [facility] 3 09:09:38 Overactiv e urinary bladder 344099062 Active 2022 Mckenna Girard n, RMA null, [place] [facility] 3 09:09:50 Acute urinary tract infection 883870450 Completed 202206/20/2023 Mckenna garcia, RMA null, [place] [facility] 3 12:17:24 Blood in urine 87088751 Completed 202206/20/2023 Mckenna Girard n, RMA null, [place] [facility] 4 12:13:54 Aneurysm 302652255 Active 2022 Mckenna garcia, RMA null, [place] [facility] 3 12:18:24 Cerebrova scular accident 765804539 Active 2022 Mckenna Girard n, RMA null, [place] [facility] 3 12:17:03 Tinea pedis 5464707 Completed 202206/20/2023 Mckenna garcia RMA null, [place] [facility] 3 12:18:03 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[facility] 68698361 Active 2022 Mckenna garcia, RMA null, [place] [facility] 3 12:18:18 Bunion [id number] Completed 202206/20/2023 Mckenna garcia, RMA null, [place] [facility] 3 12:17:07 Bunion 563287014 Completed 202206/20/2023 Mckenna garcia RMA null, [place] [facility] 3 12:17:18 History of cerebrova scular accident 858154398 Completed 202206/20/2023 Mckenna garcia RMA null, [place] [facility] 3 12:17:29 Coronary arteriosc lerosis 34261917 Active 2022 Mckenna garcia RMA null, [place] [facility] 3 12:17:11 Wound of skin [id number] Completed 202206/20/2023 Lila Powers MD [address] [place] [address], [place], [address] , [place] [facility] 3 12:47:22 Vitamin deficienc y 88236330 Active 2022 Mckenna garcia RMA null, [place] [facility] 3 12:17:43 Hyperlipi demia 98953619 Active 2022 Mckenna garcia RMA null, [place] [facility] 3 12:17:26 Essential hypertens ion 34304755 Active 2022 Mckenna garcia RMA null, [place] [facility] 3 12:16:36 Tinea cruris [id number] Completed 202206/20/2023 Lila Powers MD [address], [place], [address] , [facility] 3 12:47:04 Celluliti s of lower limb [id number] Completed 202206/20/2023 Mckenna garcia RMA [place], [place] [facility] 3 12:17:35 Skin tag 907902644 Completed 202206/20/2023 Mckenna garcia RMRaghu null, [place] [facility] 3 12:18:08 Eruption [id number] Completed 202206/20/2023 Mckenna garcia RMA [place], [place] [facility] 3 12:17:15 Tinea cruris 128503752 Active 2022 Lila Powers MD [address], [facility] [address], [place], [address] , [facility] 3 12:47:04 Wound of skin 138607190 Active 2022 Lila Powers MD [address], [facility] [address], [place], [address] , [facility] 3 12:47:21 Blood in urine 76219911 Active 2023 VERENICE Mcbride null, [place] [facility] 4 12:13:54 Seizure 76715035 Active 2023 Elidia Beltran LPN null, [place] [facility] 4 13:01:41 Seizure disorder 486973574 Active 2023 Annita Kelley MA null, [place] [facility] 4 12:57:42 Problem Notes None recorded. Procedures Surgical History Date Name Laterality Status Provider Name and Address Organization Details Recorded Time 03/03/20 Medicare Wellness CPT Code, subsequent completed Antonia Reyna RN [facility] [employer] [facility] 03/03/2024 11:55:39 03/03/20 24 Advanced Care Planning completed Antonia Reyna RN [facility] [employer] [facility] 03/03/2024 14:02:16 11/19/19 23 Nail Debridement completed Martin Flowers DPM [address], [place], [address], [facility] [employer] [facility] 11/18/2022 17:26:03 11/19/19 23 Callus Debridement, One completed Martin Flowers DPM [address], [address], [place], [address], [facility] [employer] [facility] 11/18/2022 17:25:48 10/18/19 23 Medicare Wellness CPT Code, Initial completed Monica Cadena RN [facility] [employer] [facility] 10/17/2022 15:41:00 Imaging Results Imaging Date Name Status LastModified by Organiz ation Details LastModified Time 11/18/2023 MAMMO, screening, digital, [facility] ([facility] [address] [facility] [address], [place], [address], 03/03/2024 11:32:10 Procedure Notes None recorded. Medical Equipment None Reported. Allergies No known drug allergies Medications Name Sig Start Date Stop Date Status Note LastModified by Organization Details LastModified Time Augmentin 875 mg-125 mg tablet Take 1 tablet every 12 hours by oral route for 7 days. 10/17 completed Not Available Not Available Not Available atorvastati n 80 mg tablet TAKE 1 TABLET BY MOUTH EVERY DAY 2024 active EDUAR NOV 5 ok to rf Not Available Not Available Not Available acetaminoph en 325 mg tablet TAKE 2 TABLETS BY MOUTH EVERY 6 HOURS NEEDED FOR PAIN OR FEVER 03/24 completed Not Available Not Available Not Available levetiracet am 500 mg tablet Take 1 tablet twice a day by oral route for 30 days. 2024 active EDUAR NOV 5 ok to rf Not Available Not Available Not Available hydrocodone 5 mg-acetamin ophen 325 mg tablet active Not Available Not Available No t Available melatonin 3 mg tablet TAKE 2 TABLETS BY MOUTH DAILY AT BEDTIME NEEDED FOR INSOMNIA active Not Available Not Available No t Available clopidogrel 75 mg tablet TAKE 1 TABLET BY MOUTH EVERY DAY active Not Available Not Available No t Available sulfamethox azole 800 mg-trimetho prim 160 mg tablet Take 1 tablet every 12 hours by oral route. 10/17 completed Not Available Not Available Not Available tramadol 50 mg tablet TAKE 1 TABLET BY MOUTH TWICE DAILY NEEDED (MUST LAST 60 DAYS) active Not Available Not Available No t Available econazole nitrate 1 % topical cream APPLY TO AFFECTED/ SURROUNDI NG AREA TWICE A DAY 2022 active Not Available Not Available Not Avai lable cephalexin 500 mg capsule 03/13 completed Not Available Not Available Not Available losartan 25 mg tablet Take 1 tablet every day by oral route for 90 days. 2024 active EDUAR NOV 5 ok to rf Not Available Not Available Not Available aspirin 81 mg chewable tablet TAKE 1 TABLET BY MOUTH DAILY AT 8 AM active Not Available Not Available No t Available nystatin 100,000 unit/gram topical powder APPLY TO THE AFFECTED AREA(S) BY TOPICAL ROUTE 2 TIMES PER DAY 2023 active Not Available Not Available Not Avai lable ketoconazol e 2 % topical cream APPLY TO THE AFFECTED AREA(S) BOTH FEET DAILY 2022 active Not Available Not Available Not Avai lable doxycycline hyclate 100 mg tablet TAKE 1 TABLET BY MOUTH TWICE A DAY active Not Available Not Available No t Available metoprolol tartrate 25 mg tablet 02/20 completed Not Available Not Available Not Available Thera-M 9 mg iron-400 mcg tablet TAKE 1 TABLET BY MOUTH EVERY DAY active Not Available Not Available No t Available Myrbetriq 25 mg tablet,exte nded release TAKE 1 TABLET BY MOUTH EVERY DAY 03/03 completed Not Available Not Available Not Available Myrbetriq 50 mg tablet,exte nded release TAKE 1 TABLET BY MOUTH EVERY DAY 04/26 completed Not Available Not Available Not Available Jardiance 10 mg tablet TAKE 1 TABLET BY MOUTH EVERY DAY active Not Available Not Available No t Available Vitals Date Recorded Body height Body temperature Heart rate Oxygen saturation Oxygen saturation in Arterial blood by Pulse oximetry Systolic blood pressure Diastolic blood pressure Provider Name and Address Organization Details Last Updated DateTime 3 157.48 cm 97.4 [degF] 96 /min 98 % 98 % 142 mm[Hg] 70 mm[Hg] VERENICE Cordova [place] [employer] [facility] [employer] [facility] 3 12:04:24 Date Recorded Body height Body mass index (BMI) Body weight Body temperature Heart rate Oxygen saturation Oxygen saturation in Arterial blood by Pulse oximetry Systolic blood pressure Diastolic blood pressure Provider Name and Address Organization Details Last Updated DateTime 3 157.48 cm 35.3 kg/m2 63265.3 3 g 97.5 [degF] 71 /min 99 % 99 % 122 mm[Hg] 66 mm[Hg] VERENICE Cordova [facility] [employer] [facility] 3 12:11:45 Date Recorded Body height Body mass index (BMI) Body weight Heart rate Body temperature Oxygen saturation Oxygen saturation in Arterial blood by Pulse oximetry Systolic blood pressure Diastolic blood pressure Provider Name and Address Organization Details Last Updated DateTime 4 157.48 cm 34.8 kg/m2 02636.5 5 g 68 /min 97.4 [degF] 98 % 98 % 120 mm[Hg] 70 mm[Hg] Mckenna allen Raghu [facility] [employer] [facility] 4 11:28:27 Date Recorded Body height Body mass index (BMI) Body weight Body temperature Heart rate Oxygen saturation Oxygen saturation in Arterial blood by Pulse oximetry Systolic blood pressure Diastolic blood pressure Provider Name and Address Organization Details Last Updated DateTime 4 157.48 cm 35.3 kg/m2 53269.3 3 g 98.2 [degF] 70 /min 98 % 98 % 118 mm[Hg] 72 mm[Hg] Kanika Corbin [facility] [employer] [facility] 4 11:08:36 Date Recorded Pain severity - 0-10 verbal numeric rating [Score] - Reported Provider Name and Address Organization Details Last Updated DateTime 03/03/2024 7 Antonia Reyna RN [facility] [employer] [facility] 03/03/2024 13:52:14 Date Recorded Body height Body mass index (BMI) Body weight Provider Name and Address Organization Details Last Updated DateTime 06/08/2024 157.48 cm 36.2 kg/m2 67880.29 g Mckenna Victorina VERENICE [employer] [facility] 06/08/2024 11:40:50 Date Recorded Body temperature Heart rate Oxygen saturation Oxygen saturation in Arterial blood by Pulse oximetry Systolic blood pressure Diastolic blood pressure Provider Name and Address Organization Details Last Updated DateTime 97.5 [degF] 74 /min 98 % 98 % 114 mm[Hg] 68 mm[Hg] Zaina Dima syed [employer] [facility] [employer] [facility] 11:50:11 Social History Question Answer Notes LastModified by Organization Details LastModified Time Tobacco Smoking Status Former Smoker Not Available [facility] 09/05/2022 00:58:09 Do You Have An Advance Directive? No Paperwork Provided 03/03/2024 [email or web address] Information not available 03/03/2024 What Is Your Level Of Alcohol Consumption? None MIGRATION.0301 [id number] Information not available 09/05/2022 Do You Wear A Helmet When Biking? No MIGRATION.0301 [id number] Information not available 09/05/2022 Are You Blind Or Do You Have Difficulty Seeing? No Wears Corrective Lenses [email or web address] Information not available 03/03/2024 Is Blood Transfusion Acceptable In An Emergency? Yes [email or web address] Information not available 03/03/2024 What Is Your Level Of Caffeine Consumption? Moderate [email or web address] Information not available 03/03/2024 In The 14 Days Before Symptom Onset, Have You Had Close Contact With A Laboratory-conf irmed COVID-19 While That Case Was Ill? No Not Applicable [email or web address] Information not available 03/03/2024 In The 14 Days Before Symptom Onset, Have You Had Close Contact With A Person Who Is Under Investigation For COVID-19 While That Person Was Ill? No Not Applicable [email or web address] Information not available 03/03/2024 Are You Currently Employed? No [email or web address] Information not available 03/03/2024 Are You Deaf Or Do You Have Serious Difficulty Hearing? Yes Decreased Hearing In Left [email or web address] Information not available 03/03/2024 What Type Of Diet Are You Following? REGULAR MIGRATION.0301 [id number] Information not available 09/05/2022 What Is The Highest Grade Or Level Of School You Have Completed Or The Highest Degree You Have Received? [id number] MIGRATION.0301 [id number] Information not available 09/05/2022 How Many Days Of Moderate To Strenuous Exercise, Like A Brisk Walk, Did You Do In The Last 7 Days? 2 [email or web address] Information not available 03/03/2024 On Those Days That You Engage In Moderate To Strenuous Exercise, How Many Minutes, On Average, Do You Exercise? 10 [email or web address] Information not available 03/03/2024 Have There Been Any Changes To Your Family Or Social Situation? No MIGRATION.0301 [id number] Information not available 09/05/2022 What Is The Fluoride Status Of Your Home? Fluoridated [email or web address] Information not available 10/17/2022 When Did You Quit Smoking? 16+yearssincelastc igarette 1985 [email or web address] Information not available 03/03/2024 Are There Any Guns Present In Your Home? No Declined [email or web address] Information not available 03/03/2024 Do You Use Insect Repellent Routinely? No MIGRATION.0301 [id number] Information not available 09/05/2022 Where Do You Live? SingleLevelHouse Information not available 10/17/2022 Presence Of Domestic Violence No Information not available 10/17/2022 Are You Able To Care For Yourself? Yes With Some Assistance [email or web address] Information not available 10/17/2022 Are You Blind Or Do Yo Have Difficulty Seeing? No Information not available 10/17/2022 Are You Deaf Or Do You Have Serious Difficulty Hearing? 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 Moderate Information not available 10/17/2022 Live Alone Of With Others? With Others [email or web address] Information not available 10/17/2022 Do You Have A Medical Power Of Salesperson Neckties? No [email or web address] Information not available 03/03/2024 What Was The Date Of Your Most Recent Tobacco Screening? 03/03/2024 [email or web address] Information not available 03/03/2024 How Many Children Do You Have? 2 [email or web address] Information not available 03/03/2024 What Is Your Current Pack Years? 10packyears MIGRATION.0301 231102 Information not available 09/05/2022 Do You Have Any Pets? Yes MIGRATION.0301 [id number] Information not available 09/05/2022 What Is Your Relationship Status? MIGRATION.0301 638185 Information not available 09/05/2022 Do You Use Your Seat Belt Or Car Seat Routinely? Yes MIGRATION.0301 284117 Information not available 09/05/2022 Do You Have Smoke And Carbon Monoxide Detectors In Your Home? Yes [email or web address] Information not available 10/17/2022 At What Age Did You Start Smoking Tobacco? 20 [email or web address] Information not available 03/03/2024 Are You Passively Exposed To Smoke? No MIGRATION.0301 941626 Information not available 09/05/2022 Are There Any Smokers In Your House? Yes MIGRATION.030 318517 Information not available 09/05/2022 How Much Tobacco Do You Smoke? 0.5 PPD Previously About A 1/2 Pk [email or web address] Information not available 03/03/2024 What Types Of Sporting Activities Do You Participate In? None [email or web address] Information not available 03/03/2024 Do You Feel Stressed (tense, Restless, Nervous, Or Anxious, Or Unable To Sleep At Night)? CK15717-0 [email or web address] Information not available 03/03/2024 Do You Use Any Illicit Or Recreational Drugs? No MIGRATION.0301 441744 Information not available 09/05/2022 Do You Use Sunscreen Routinely? No MIGRATION.0301 403696 Information not available 09/05/2022 Has Tobacco Cessation Counseling Been Provided? No MIGRATION.0301 746209 Information not available 09/05/2022 How Many Years Have You Smoked Tobacco? 15 Quit In 1985 [email or web address] Information not available 03/03/2024 Have You Recently Traveled Abroad? No MIGRATION.0301 451953 Information not available 09/05/2022 Do You Have Any Dietary Restrictions? No [email or web address] Information not available 03/03/2024 Do You Or Have You Ever Used Any Other Forms Of Tobacco Or Nicotine? No MIGRATION.0301 072186 Information not available 09/05/2022 Sex: Unknown Functional Status Question Answer Note LastModified by Organizat ion Details LastModified Time Do you have difficulty walking or climbing stairs? No MIGRATION.19915 37001 Information not available 09/05/2022 Do you have transportation difficulties? No MIGRATION.00179 58283 Information not available 09/05/2022 Are you able to walk? YESASSIST MIGRATION.01423 78076 Information not available 09/05/2022 Do you have difficulty doing errands alone? Yes needs assist related to decreased mobility on left side [email or web address] Information not available 03/03/2024 Are you able to care for yourself? Yes MIGRATION.48285 06972 Information not available 09/05/2022 Do you have difficulty dressing or bathing? No MIGRATION.86485 79593 Information not available 09/05/2022 What is your exercise level? Occasional MIGRATION.27362 41628 Information not available 09/05/2022 Mental Status Question Answer Note LastModified by Organizat ion Details LastModified Time Do you have difficulty concentrating, remembering or making decisions? No MIGRATION.[id number] 6 Information not available 09/05/2022 Family History Relationship Description Onset Age of this Age Resolved Age Notes LastModified by Organization Details LastModified Time Father No current problems or disability MIGRATION.431 [id number] Not available 09/05/2022 00:58:22 Mother No current problems or disability MIGRATION.920 [id number] Not available 09/05/2022 00:58:22 Father Family history of malignant neoplasm LUNG [email or web address] Not available 2022 16:32:58 Mother Family history of malignant neoplasm LUNG [email or web address] Not available 2022 16:32:58 Medical History Condition Response ARTHRITIS Y PAIN Y ANEURYSM Y STROKE/TIA Y Gynecological History Statement/Question Response Date of Last Colonoscopy Date of Last Mammogram Most Recent Bone Density Obstetrics History GPAL:G 0 P 0 0 0 0 Immunizations Vaccine Type Date Status Note Provider Nam e and Address Organization Details Recorded Time Pneumococcal conjugate PCV 13 2 completed Not Available [employer] 09/05/2022 01:00:17 Influenza, high-dose, quadrivalent, PF 3 completed VERENICE Bernard, [place] [facility] [employer] 05/16/2023 10:21:51 Influenza, high-dose, trivalent, PF 4 completed Lila Powers MD [address] [place] [address], [address], [address], [place] [facility] 06/08/2024 12:43:52 Past Encounters Encounter ID Performer Location Encounter Start Date Encounter Closed Date Diagnosis/Indication Diagnosis SNOMED-CT Code Diagnosis ICD10 Code Diagnosis Note [id number] [facility] [address] [place] [address] 02/12/2022 00:00:00 02/12/2022 17:05:02 [id number] [facility] [address] [facility] [place] [address] 03/28/2022 00:00:00 03/28/2022 16:07:19 [id number] [facility] [address] [facility] [place] [address] 06/18/2022 00:00:00 06/18/2022 15:46:51 [id number] Lila Powers MD [facility] Internal Med [facility] [address] [facility] [place] [address] 10/17/2022 14:27:48 10/17/2022 15:27:46 History of hemorrhagic stroke with residual hemiplegia 3505294219 81242 I69.259 functional with limitation s , has a lift chair at homeusing tramadol for muscle pain susan in the left arm Osteoarthritis 752978393 M19.90 on tramadol every day bid for joint and muscle pain Adult [facility] th examination 385788770 Z00.00 Mammo- December 2021- [facility] (not in chart)Dexa -2P1 3- 2PPV 23- never (getting in FEB 2023)Colon oscopy- cologaurd 2019 was positiveCO VID- 2 vaccines, 2 boostersFl u- 2021 Ankle joint deformity 29 6951161 M21.969 may need new brace Overactive urinary bladder 048036131 N32.81 try Myrbetriq 25 samples Screening for disorder 576258458 Z13.9 [id number] Martin Flowers DPM [facility] [address] [place] [address] 11/18/2022 16:00:31 11/20/2022 17:31:06 Tinea pedis 8089697 B35.3 both feetdaily foot hygiene History of cerebrovascular accident 877769841 Z86.73 affects left leg Muscular hypertonicity 15848824 R25.2 left lower legGRAFO RX todayfollo w up after new bracing Bunion 465188343 M21.61 2 offloading possible injection at next visit pending improvemen t with new afo [id number] Lila Powers MD [facility] Internal [address] [place] [address] 02/20/2023 15:08:39 02/20/2023 15:49:54 Coronary arteriosclerosis 75897176 I25.10 s/p stents, will stop metoprolol , bp is low, keep taking Losaratn History of hemorrhagic stroke with residual hemiplegia 4984687753 42999 I69.259 functional with limitation s , has a lift chair at homeusing tramadol for muscle pain susan in the left arm Overactive urinary bladder 452979422 N32.81 on Myrbetriq 25 samples Wound of skin 338439757 T14.8XXA much better, local care [id number] Lila Powers MD [facility] Internal [address] [place] [address] 03/24/2023 11:54:06 03/24/2023 12:26:04 Essential hypertension 65876980 I10 better Tinea cruris 043487809 B 35.6 [id number] Lila Powers MD [facility] Internal [address] [place] [address] 04/08/2023 11:43:34 04/08/2023 12:33:29 Cellulitis of lower limb 933537994 L03.119 warm compresses Skin tag [id number] L91.8 watch [id number] Lila Powers MD [facility] Internal [address] [place] [address] 06/20/2023 11:31:40 06/20/2023 13:01:06 History of hemorrhagic stroke with residual hemiplegia 0098865903 34437 I69.259 functional with limitation s , has a lift chair at home Osteoarthritis 871442001 M19.90 on tramadol every day bid for joint and muscle pain Adult heal th examination 340156201 Z00.00 Mammo- December 2021- [facility] (not in chart)Dexa -1 3- PV 23- never (getting in FEB 2023)Colon oscopy- cologaurd 2020 was positiveCO VID- 2 vaccines, 2 boostersFl u- 05/16/2023 Ankle joint deformity 29 1746552 M21.969 using brace left foot Overactive urinary bladder 807260019 N32.81 meds help Essential hypertension 84451547 I10 under control Coronary arteriosclerosis 86651719 I25.10 s/p stents, [id number] Lila Powers MD [facility] Internal Med [id number] [facility] [place] [address] 10/28/2023 11:12:44 10/28/2023 12:08:59 History of hemorrhagic stroke with residual hemiplegia 6168562397 60633 I69.259 functional with limitation s , has a lift chair at home Osteoarthritis 520573842 M19.90 on tramadol every day bid for joint and muscle pain Adult heal th examination 859449889 Z00.00 Mammo- December 2021- [facility] (not in chart)Dexa -1 3- PV 23- never (getting in FEB 2023)Colon oscopy- cologaurd 2020 was positiveCO VID- 2 vaccines, 2 boostersFl u- 05/16/2023 Ankle joint deformity 29 0326842 M21.969 using brace left foot Overactive urinary bladder 758773932 N32.81 meds help Essential hypertension 97796782 I10 under control Coronary arteriosclerosis 13987842 I25.10 s/p stents, Long-term drug therapy 366365267 Z79.899 Screening mammography 24 432841 Z12.31 [id number] Lila Powers MD [facility] Internal [address] [facility] [place] [address] 03/03/2024 10:57:28 03/03/2024 12:52:50 Essential hypertension 90046583 I10 under control Coronary arteriosclerosis 95312636 I25.10 s/p stents, History of hemorrhagic stroke with residual hemiplegia 3671113911 35498 I69.259 functional with limitation s , has a lift chair at home Osteoarthritis 392830297 M19.90 on tramadol every day bid for joint and muscle pain Adult [facility] th examination 358714309 Z00.00 Mammo- 11/18/23De xa-02/2022 P1- PV 23- never (getting in FEB 2023)Colon oscopy- cologaurd 2020 was positiveCO VID- 2 vaccines, 2 boostersFl u- 05/16/2023 Ankle joint deformity 29 0675624 M21.969 using brace left foot Overactive urinary bladder 932057353 N32.81 ^ the dose Screening for disorder 241030231 Z13.9 [id number] Lila Powers MD [facility] [address] [facility] [place] [address] 06/08/2024 11:30:31 06/08/2024 12:54:13 Essential hypertension 12348617 I10 under control Coronary arteriosclerosis 56042184 I25.10 s/p stents, History of hemorrhagic stroke with residual hemiplegia 3522733305 00729 I69.259 functional with limitation s , has a lift chair at home Osteoarthritis 136767657 M19.90 on tramadol every day bid for joint and muscle pain Adult [facility] examination 109718242 Z00.00 Mammo- 11/18/23De xa-02/2022 P1PV 23- never (getting in FEB 2023)Colon oscopy- cologaurd 2020 was positiveCO VID- 2 vaccines, 2 boostersFl u- 06/08/2024 Ankle joint deformity 29 1818948 M21.969 using brace left foot Overactive urinary bladder 747981124 N32.81 not on meds Administra tion of influenza vaccine 36132924 Z23 Seizure disorder 1510047 02 G40.909 seeing neuro Health Concerns Section Related Observation LastModified by Organization Detai ls LastModified Time None Recorded Concern Status LastModified by Organization Details LastModified Time None Recorded Advance Directives Directive N: paperwork provided 024 Payers Encounter Date Sequence Insurance Name Policy Number Policy Casarez Covered Member ID Casarez Member ID Guarantor Name 04/08/2023 1 [place] Wen Tolentino [id number] Wen Tolentino 04/08/2023 2 [place] [facility] Wen Tolentino [id number] Wen Randa 06/20/2023 1 [place] Wen Tolentino [id number] Wen Randa 06/20/2023 2 [place] [facility] A[facility] Wen Tolentino [id number] Wen Randa 10/28/2023 [facility]/A DVANTAGE - HMO) [id number] Wen Alamoires [id number] Wen Randa 03/03/2024 1 [facility] (MEDICARE REPLACEMENT/A DVANTAGE - HMO) [id number] Wen Alamoires [id number] Wen Randa 06/08/2024 1 [facility] (MEDICARE REPLACEMENT/A DVANTAGE - HMO) [id number] Wen Alamoires [id number] Wen Randa Notes Date Note Type Note Provider Name and Address Organization Details Recorded Time 04/08/2023 text/html She is here toda y for a insect bite of some kind on her right hand. She woke up Friday morning with a red spot and area now looks red, swollen and infected.Also has a wart or boil like bump inside her left thigh, noticed it a couple days a ago, is really sore but not draining.no feverswelling is getting worse Lila Powers MD [address] [place] [address], [facility] [address], [place], [address], [facility] [employer] 04/08/2023 12:25:48 06/20/2023 text/html She is here to y for a routine follow up CAD- s/p stents Hypertension- controlled with medsMeds- Losartan 25mg daily Hyperlipidemia- on meds, labs 10/27Meds- Atorvastatin 80mg daily Arthritis - pain in the hips, ankles and shouldersDoes take tramadol 50 mg twice daily as needed,Cerebrovascu lar accident-Hx of cerebral hemorrage 30 years ago, has left arm paralysis and left leg weakness, walks with a caneMeds- Plavix 75mg QD, Asirin 81mg daily Obesity- advised to watch diet, Has gained 2 lbs Insomnia- Uses OTC melatonin and helps Overactive bladder- getting better with medsMeds- Myrbetriq 25mg daily Osteoarthritis- takes tramadol [facility] f/u 02/26Rosaline is here today for a follow up from the ER.She was admitted to [facility] on November 25 Had a stent placed, during operation had an aneurysm and was airlifted to [place], There she was in intensive care for 1 week, had a surgery to stop the bleeding in the groin after the card cath, , ended up with a wound vac in her right groin due to infection [facility]Since being home she still has a little problems getting up and down but over all feels better.B/p today is low - 90/58, on metoprolol and losartan Lila Powers MD [address], [place], [address], [employer] 06/20/2023 12:50:15 10/28/2023 text/html She is here claudia georges for a routine follow up CAD- s/p stents, no symptoms , on asa 81 mg qd, seeing DR Fletcher at [facility] Hypertension- controlled with medsMeds- Losartan 25mg daily Hyperlipidemia- on meds, labs 10/27Meds- Atorvastatin 80mg daily Arthritis - pain in the hips, ankles and shouldersDoes take tramadol 50 mg twice daily as needed,Cerebrovascu lar accident-Hx of cerebral hemorrage 30 years ago, has left arm paralysis and left leg weakness, walks with a caneMeds- Plavix 75mg QD, Asirin 81mg daily Obesity- advised to watch diet, Has lost some Insomnia- Uses OTC melatonin and helps Overactive bladder- getting better with meds, some dry mouth withMeds- Myrbetriq 25mg daily Lila Powers MD [address], [place], [address], [employer] 10/28/2023 11:52:35 03/03/2024 text/html She is here claudia georges for a routine follow up * Has a boil on the back on her left leg she would like looked at, Has noticed it a couple months ago but recently has gotten to be more tender Constantly hurting and the pain meds does not seem to be controlling it lately. Does not want to go through pain management CAD- s/p stents, no symptoms , on asa 81 mg qd, seeing DR Fletcher at [facility] Hypertension- controlled with medsMeds- Losartan 25mg daily Hyperlipidemia- on meds, labs 11/27Meds- Atorvastatin 80mg daily Arthritis - pain in the hips, ankles and shouldersDoes take tramadol 50 mg twice daily as needed,Cerebrovascu lar accident-Hx of cerebral hemorrage 30 years ago, has left arm paralysis and left leg weakness, walks with a caneMeds- Plavix 75mg QD, Asirin 81mg daily Obesity- advised to watch diet, Has gained 3 lbs Insomnia- Uses OTC melatonin and helps Overactive bladder- not helping any more, some dry mouth withMeds- Myrbetriq 25mg daily (NOT HELPING LIKE IT DID AT THE BEGINNING) Lila Powers MD [address] [place] [address], [facility] [address], [place], [address], [facility] [employer] 03/03/2024 14:48:00 06/08/2024 text/html She is here toda y for a routine follow up*pt is not fasting ([facility]) *pt has sore on back on her left leg she would like looked at still bothering her, Has noticed it a couple months ago but recently has gotten to be more tender Constantly hurting and the pain meds does not seem to be controlling it lately. 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, has left arm paralysis and left leg weakness, walks with a caneMeds- Plavix 75mg QD, Asirin 81mg daily Obesity- advised to watch diet, Has gained 5 lbs Insomnia- Uses OTC melatonin and helps Overactive bladder- not helping any more, some dry mouth withMeds- Myrbetriq 25mg daily was stopped due to possible drug interaction Sz disorder- on meds, getting EEG, seeing neurology Lila Powers MD [address] [facility], [facility] [address], [place], [address], [place] [facility] 06/08/2024 12:55:48 OBGyn Episode No OBEpisode recorded.
--- OUTSIDE RECORDS SUMMARY | 2024-08-31 16:26 | XMS_ITS | Clinical Summary ---
Author Organization [facility] Address [address] [place] [address] Care Team Providers Care Associate Professor Of Biology Name Role Phone Bryan Cruz MD Primary Care Provider [phone] Allergies No known active allergies Medications aspirin [...] mg total) by mouth daily 30 tablet 01/04/2023 Active empagliflozin (JARDIANCE) 10 mg tablet [...] Will need an appointment with an outpatient medical artist prior to discharge Heart failure with mildly re duced ejection fraction (HFmrEF) 12/18/2022 Assessment & Plan (12/26/2022 4:14 PM CDT): TTE 11/2022 with LVEF 57% G1DD -> now EF 42%. Wtbjz-pm-qgqewsk exacerbation this admission with pulmonary edema and [...] (12/18/2022 8:30 AM CDT): - Underwent Right HPLC CHEMIST repair on 11/28/22, dc'd to rehab on [...] 4:17 PM CDT): -Admitted 11/27 for STEMI. [facility] with 100% occlusion of the mid-RCA with balloon angioplasty and ALOK placement. RPL lesion stented. High-grade stenosis of prox LAD. -Echo 12/23 showed newly reduced EF 42% -> decision made for [facility] cath today with 2 ALOK to LAD -continue ASA, Plavix, statin -continue metoprolol 6.25 mg BID, lisinopril 5 mg daily Assessment & Plan (12/16/2022 7:16 AM CDT): Recent STEMI s/p PCI at OSH on 11/26/22 complicated by R HPLC CHEMIST pseudoaneurysm (see separate problem). - Continue asa, [...] optimization and management before returning to Rehab Encounters Date Type Department Care Team Description 07/23/2024 Telephone [facility] Medical Group Cardiology [address] [place] [address] Xiang Fletcher MD from Last 3 Months Family History Medical History Relation Name Comments Heart attack Brother Heart attack Mother Relation Name Status Comments Brother Mother Social History Tobacco Use Types Packs/Day Years [...] often do you attend chur ch or christian services? More than 4 times per year 12/19/2022 Do you belong to any clubs o r organizations such as yarsani groups, unions, fraternal or athletic groups, or [...] place to sleep or slept in a custodial (including now)? No 12/19/2022 Personal Safety Answer [...] on file Sexual Orientation Not on file Obstetrics History Last Filed Vital Signs Vital Sign Reading [...] 05/06/2024 1:23 PM CDT Plan of Treatment Health Maintenance Due Date Last Done Comments Breast Cancer Screening-Mammogram 1950 Colon Cancer Screening-Colonoscopy 1950 Osteoporosis Screening-Bone Density Scan 1950 DTaP/Tdap/Td Vaccine (1 - Tdap) 1963 Hepatitis B Screening 1970 Zoster Vaccine (1 of 2) 2002 Well Visit 65+ 2017 Pneumococcal vaccine 65+ (2 of 2 - PPSV23) 04/09/2022 02/12/2022 Depression Screening 12/12/2023 12/11/2022 Fall Risk Assessment 01/04/2024 01/03/2023 Covid-19 Vaccine ( season) 2024 06/19/2021, 09/24/2020, 09/03/2020 Influenza Vaccine (#1) 2024 05/04/2020 Hepatitis C Screening Completed 12/28/2022 Medical Devices Implanted Type Area Finance Analyst Device Identifier Shelf Expiration Date Model / Serial / Lot Medtronic Card Vasc Surgery 2.75 X 26mm Nikhil [place] Rx Coronary Stent [id number] - [id number] - [id number] Implanted:Qty : 1 on 12/26/2022 by Nico Zurita MD at [facility] Stent Left: Anterior Descending Cornary Artery Medtronic Card Vasc Surgery 11/19/2023 [id number] / [id number] / [id number] Medtronic Card Vasc Surgery 2.25 X 22mm [place] Rx Coronary Stent [id number] - [id number] - [id number] Implanted:Qty : 1 on 12/26/2022 by Nico Zurita MD at [facility] Stent Left: Anterior Descending Cornary Artery Medtronic Card Vasc Surgery 11/28/2023 [id number] 22UX / [id number] / [id number] Procedures Procedure Name Priority Date/Time Associated Diagnosis Comments HEPATITIS PANEL, ACUTE Routine 12/28/2022 8:27 PM CDT from Last 3 Months or Most Recently Relevant to Health Maintenance Results * Hepatitis panel, acute (12/28/2022 8:27 PM CDT) Hep A IgM Nonreactive Nonreactive [facility] Hep B core IgM Nonreactive Nonreactive [facility] Hep C Ab Nonreactive Nonreactive [facility] Comment:Antibodies to HCV no t detected. Does NOT exclude the possibility of recent exposure to HCV. Current interpretive data was last revised on 22 HepBsAg Nonreactive Nonreactive [facility] Blood 12/28/2022 8:27 PM CDT 12/28/2022 10:02 PM CDT David Thornton MD LAB MICROBIOLOGY - GENERAL OR DERABLES Final Result [facility] [place] [address] from Last 3 Months or Most Recently Relevant to Health Maintenance Insurance [facility] MEDICARE IDPA MEDICARE SOLUTIONS Advance Directives For more information, please contact: [phone] * Full Code (Latest Code Status on File) Date Activated Date Inactivated Comments 12/12/2022 12:00 AM 01/03/2023 6:37 PM * Full Code Date Activated Date Inactivated Comments 11/27/2022 1:53 PM 12/03/2022 9:50 PM Care Teams Associate Professor Of Biology Relationship Specialty Start Date End Date Bryan Cruz MD [address] [place] [address] PCP - General Internal Medicine 11/26/22
--- OUTSIDE RECORDS SUMMARY | 2024-08-31 16:26 | XMS_ITS | Clinical Summary ---
Author Organization [facility] Address [address] [place] [address] Care Team Providers Care Quality Worker Name Role Phone Unavailable Primary Care Provider Unavailabl e Immunizations Immunization Administration Dates Next Due Covid-19, Mrna, Lnp-s, Pf, 30 Mcg/0.3 Ml Dose (P fizer) 06/19/2021 Social History Tobacco Use Types Packs/Day Years Used Date Smoking Tobacco: Never Assessed Comments Unknown Sex and Gender Information Value Date Recorded Sex Assigned at Not on file Legal Sex Female 5:34 PM CIO Gender Identity Not on file Sexual Orientation Not on file Plan of Treatment Health Maintenance Due Date Last Done Comments DEXA Bone Density 1950 Hepatitis C Virus (HCV) Screening 1950 TdaP Immunization 1950 Colonoscopy 1997 Colorectal Cancer Screening 1997 Cologuard 2002 Immunochemical Fecal Occult Blood 2002 Mammogram 2002 Pneumococcal Immunization (5 0+ years) (1 of 1 - PCV) 2002 Zoster Immunization (1 of 2) 2002 Influenza Immunization (#1) 2024 05/04/2020 SARS-COV-2 Immunization ( season) 2024 06/19/2021, 09/24/2020, 09/03/2020 Respiratory Syncytial Virus (RSV) Immunization (Adult) (1 - 1-dose 75+ series) 2027 Hepatitis B Immunization Aged Out No longer eligible based on patient's age to complete this topic Meningococcal Immunization (ACWY) Aged Out No longer eligible b ased on patient's age to complete this topic Rotavirus Immunization Aged Out No lo nger eligible based on patient's age to complete this topic
--- OUTSIDE RECORDS SUMMARY | 2024-08-31 16:26 | XMS_ITS | CONTINUITY OF CARE DOCUMENT ---
Author Name elisha tello Address Unknown Organization [facility] Address [address] [place] [address] Phone [phone] Care Team Providers Care House Shorer Name Role Phone Nati Adkins MD Unavailable [phone] Nati Adkins MD Unavailable INSURANCE PROVIDERS Payer name Policy type / Coverage type [place] red alliance party ID AARP MEDICARE ADVANTAGE HMO-POS HMO [id number]
--- NOTE | 2024-08-31 16:54 | ECG_ITS ---
Test Date: 2024-08-31 17:17:52 Measurements Intervals [place] Rate: 71 P: 42 [place]: 183 QRS: 17 QRSD: 118 T: -9 QT: 362 QTc: 394 Interpretive Statements SINUS RHYTHM LOW QRS VOLTAGE IN PRECORDIAL LEADS BORDERLINE R WAVE PROGRESSION, ANTERIOR LEADS CONSIDER INFERIOR INFARCT, AGE INDETERMINATE BASELINE WANDER- I, II, III, AVR, AVL, AVF, V1-V6 ABNORMAL ECG No previous ECG available for comparison Electronically Signed On 08-31-2024 18:28:03 BURR MACHINE OPERATOR by Carlyle Mallory D.O.
[2024-08-31 17:44] LABS: Basophils Percent Auto 0.2 % (0.2-1.2); Hematocrit 43.4 % (37.0-47.0); Hemoglobin 14.2 g/dL (12.0-15.0); Immature Granulocyte Absolute 0.03 K/mm3 (0.00-0.031); Immature Granulocyte Percent A 0.3 % (0-0.5); Lymphocytes Absolute Auto 0.91 K/mm3 (0.9-3.2); Lymphocytes Percent Auto 9.5 % (18.3-44.2); Mean Corpuscular HGB Conc 32.7 g/dl (32-36); Mean Corpuscular Volume 91.6 fl (80-100); Mean Platelet Volume 9.5 fl (7.4-10.4); Monocytes Percent Auto 10.4 % (2.6-8.5); Neutrophils Absolute Auto 7.6 K/mm3 (1.3-6.7); Neutrophils Percent Auto 79.6 % (45.5-73.1); Platelet Count Result 287 k/mm3 (150-375); Red Blood Count 4.74 M/mm3 (4.2-5.4); Red Cell Distribution Width 14.5 % (11.5-14.5); White Blood Count 9.6 K/mm3 (4.5-10.0)
[2024-08-31 17:54] LABS: Add Urine Microscopic? YES; Appearance Urine Clear (Clear); Bacteria Urine 4+ /hpf; Bilirubin Urine Negative (Negative); Blood Urine Negative (Negative); Color Urine Yellow (Yellow); Glucose Urine UA 3+ mg/dL (Negative); Ketones Urine Negative (Negative); Leukocyte Esterase Ur Negative LEU/UL (Negative); Nitrate Urine Positive (Negative); Non Pathogenic Casts 0-2; Protein Urine Negative (Negative); RBC Urine 0-2 /hpf (0-2); Specific Grav Ur 1.032 (1.001-1.035); Squamous Epithelial Cell Urine None Seen /hpf (Few); Urobilinogen Urine 0.2 mg/dL (<2.0); WBC Urine 0-5 /hpf (0-3); pH Urine 5.5 (5.0-9.0)
[2024-08-31 17:56] LABS: Alanine Aminotransferase 65 U/L (6-35); Albumin Level 4.4 g/dL (3.5-5.1); Alkaline Phosphatase 82 U/L (38-126); Anion Gap 9 mmol/L (4-12); Aspartate Amino Transferase 60 U/L (14-36); Bilirubin,Total 0.8 mg/dL (0.2-1.3); Blood Urea Nitrogen 24 mg/dL (7-17); Calcium 9.6 mg/dL (8.4-10.2); Carbon Dioxide 27 mmol/L (22-30); Chloride 101 mmol/L (98-107); Estimated Glomerular Filt Rate > 60; Glucose 101 mg/dL (65-110); Potassium 4.1 mmol/L (3.4-5.0); Sodium 137 mmol/L (137-145)
--- OUTSIDE RECORDS SUMMARY | 2024-08-31 19:14 | XMS_ITS | Referral Summary ---
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 Fdrbc-wv-rpqvmfu exacerbation this admission with pulmonary edema and [...] (12/18/2022 8:30 AM CDT): - Underwent Right STREETCAR REPAIRER repair on 11/28/22, dc'd to rehab on [...] 4:17 PM CDT): -Admitted 11/27 for STEMI. [facility] with 100% occlusion of the mid-RCA with balloon angioplasty and ALOK placement. RPL lesion stented. High-grade stenosis of prox LAD. -Echo 12/23 showed newly reduced EF 42% -> decision made for [facility] cath today with 2 ALOK to LAD -continue ASA, Plavix, statin -continue metoprolol 6.25 mg BID, lisinopril 5 mg daily Assessment & Plan (12/16/2022 7:16 AM CDT): Recent STEMI s/p PCI at OSH on 11/26/22 complicated by R STREETCAR REPAIRER pseudoaneurysm (see separate problem). - Continue asa, [...] often do you attend chur ch or druze services? More than 4 times per year 12/19/2022 Do you belong to any clubs o r organizations such as temple groups, unions, fraternal or athletic groups, or [...] place to sleep or slept in a halfway (including now)? No 12/19/2022 Personal Safety Answer [...] on file Medical Devices Implanted Type Area Veterinary Medicine Scientist Device Identifier Shelf Expiration Date Model / Serial / Lot Medtronic Card Vasc Surgery 2.75 X 26mm Nikhil [place] Rx Coronary Stent [id number] - [id number] - [id number] Implanted:Qty : 1 on 12/26/2022 by Nico Zurita MD at [facility] Stent Left: Anterior Descending Cornary Artery Medtronic Card Vasc Surgery 11/19/2023 [id number] / [id number] / [id number] Medtronic Card Vasc Surgery 2.25 X 22mm Nikhil [place] Rx Coronary Stent [id number] - [id number] - [id number] Implanted:Qty : 1 on 12/26/2022 by Nico Zurita MD at [facility] Stent Left: Anterior Descending Cornary Artery Medtronic Card Vasc Surgery 11/28/2023 [id number] 22UX / [id number] / [id number] Procedures Procedure Name Priority Date/Time Associated Diagnosis Comments HEPATITIS PANEL, ACUTE Routine 12/28/2022 8:27 PM CDT from Last 3 Months or Most Recently Relevant to Health Maintenance Results * Hepatitis panel, acute (12/28/2022 8:27 PM CDT) Hep A IgM Nonreactive Nonreactive [facility] Hep B core IgM Nonreactive Nonreactive [facility] Hep C Ab Nonreactive Nonreactive [facility] Comment:Antibodies to HCV no t detected. Does NOT exclude the possibility of recent exposure to HCV. Current interpretive data was last revised on 22 HepBsAg Nonreactive Nonreactive [facility] Blood 12/28/2022 8:27 PM CDT 12/28/2022 10:02 PM CDT us David Thornton MD LAB MICROBIOLOGY - GENERAL OR DERABLES Final Result [facility] Department [place] [address] from Last 3 Months or Most Recently Relevant to Health Maintenance Insurance IDPA MEDICARE [employer]PA MEDICARE SOLUTIONS Advance Directives For more information, please contact: [phone] * Full Code (Latest Code Status on File) Date Activated Date Inactivated Comments 12/12/2022 12:00 AM 01/03/2023 6:37 PM * Full Code Date Activated Date Inactivated Comments 11/27/2022 1:53 PM 12/03/2022 9:50 PM Care Teams Fence Erector Supervisor Relationship Specialty [place] [address] [place] [address] PCP - General Internal Medicine 11/26/22
--- OUTSIDE RECORDS SUMMARY | 2024-08-31 19:14 | XMS_ITS | CONTINUITY OF CARE DOCUMENT ---
Author Name elisha tello Address Unknown Organization [facility] Address [address] [place] [address] Phone [phone] Care Team Providers Care Insurance Specialist Name Role Phone Nati Adkins MD Unavailable Nati Adkins MD Unavailable INSURANCE PROVIDERS Payer name Policy type / Coverage type [place] red republican ID AARP MEDICARE ADVANTAGE HMO-POS HMO [id number]
--- OUTSIDE RECORDS SUMMARY | 2024-08-31 19:14 | XMS_ITS | Clinical Summary ---
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 Ryjth-tt-wjydhrf exacerbation this admission with pulmonary edema and [...] (12/18/2022 8:30 AM CDT): - Underwent Right FAMILY CASEWORKER repair on 11/28/22, dc'd to rehab on [...] 4:17 PM CDT): -Admitted 11/27 for STEMI. [facility] with 100% occlusion of the mid-RCA with balloon angioplasty and ALOK placement. RPL lesion stented. High-grade stenosis of prox LAD. -Echo 12/23 showed newly reduced EF 42% -> decision made for [facility] cath today with 2 ALOK to LAD -continue ASA, Plavix, statin -continue metoprolol 6.25 mg BID, lisinopril 5 mg daily Assessment & Plan (12/16/2022 7:16 AM CDT): Recent STEMI s/p PCI at OSH on 11/26/22 complicated by R FAMILY CASEWORKER pseudoaneurysm (see separate problem). - Continue asa, [...] Type Department Care Team Description 07/23/[address] [facility] Medical Group Cardiology [address] [place] [address] Xiang Fletcher MD from Last [...] often do you attend chur ch or orthodoxy services? More than 4 times per year 12/19/2022 Do you belong to any clubs o r organizations such as denominational groups, unions, fraternal or athletic groups, or [...] place to sleep or slept in a chcf (including now)? No 12/19/2022 Personal Safety Answer [...] Completed 12/28/2022 Medical Devices Implanted Type Area Micromatic Hone Operator Device Identifier Shelf Expiration Date Model / Serial / Lot Medtronic Card Vasc Surgery 2.75 X 26mm Nikhil [place] Rx Coronary Stent [id number] - [id number] - [id number] Implanted:Qty : 1 on 12/26/2022 by Nico Zurita MD at [facility] Stent Left: Anterior Descending Cornary Artery Medtronic Card Vasc Surgery 11/19/2023 [id number] 26UX / [id number] / [id number] Medtronic Card Vasc Surgery 2.25 X 22mm [place] Rx Coronary Stent [id number] - [id number] - [id number] Implanted:Qty : 1 on 12/26/2022 by Nico Zurita MD at [facility] Stent Left: Anterior Descending Cornary Artery Medtronic Card Vasc Surgery 11/28/2023 [id number] 22UX / [id number] / [id number] Procedures Procedure Name Priority Date/Time Associated Diagnosis Comments HEPATITIS PANEL, ACUTE Routine 12/28/2022 8:27 PM CDT from Last 3 Months or Most Recently Relevant to Health Maintenance Results * Hepatitis panel, acute (12/28/2022 8:27 PM CDT) Hep A IgM Nonreactive Nonreactive [facility] Hep B core IgM Nonreactive Nonreactive [facility] Hep C Ab Nonreactive Nonreactive [facility] Comment:Antibodies to HCV no t detected. Does NOT exclude the possibility of recent exposure to HCV. Current interpretive data was last revised on 22 HepBsAg Nonreactive Nonreactive [facility] Blood 12/28/2022 8:27 PM CDT 12/28/2022 10:02 PM CDT David Thornton MD LAB MICROBIOLOGY - GENERAL OR DERABLES Final Result [facility] One [facility] [place] [address] from Last 3 Months or Most Recently Relevant to Health Maintenance Insurance [facility] MEDICARE IDPA MEDICARE SOLUTIONS Advance Directives For more information, please contact: [phone] * Full Code (Latest Code Status on File) Date Activated Date Inactivated Comments 12/12/2022 12:00 AM 01/03/2023 6:37 PM * Full Code Date Activated Date Inactivated Comments 11/27/2022 1:53 PM 12/03/2022 9:50 PM Care Teams Management Assistant Relationship Specialty Start Date End Date Bryan Cruz MD [address] [place] [address] PCP - General Internal Medicine 11/26/22
--- OUTSIDE RECORDS SUMMARY | 2024-08-31 19:14 | XMS_ITS | Clinical Summary ---
Author Organization [facility] Address [facility] [place] [address] Care Team Providers Care Bobbin Fixer Name Role Phone Bryan Cruz MD Primary Care Provider [phone] Allergies No known active allergies Medications aspirin [...] levETIRAcetam (KEPPRA) 500 MG tabletIndicatio ns:Seizure disorder ([facility]) Take 1 tablet (500 mg total) by mouth 2 (two) times daily. 180 tablet 3 05/14/2024 05/14/20 25 Active Active Problems Problem Noted Date Diagnosed Date Seizure disorder ([facility]/HCC HHS/HCC) 04/19/[address] elevation myocardial infarction ([facility]) 09/26/2023 Cellulitis of lower limb 04/08/2023 Skin tag 04/08/2023 Essential hypertension 03/24/2023 Tinea cruris 03/24/2023 Hyperlipidemia 03/17/2023 Vitamin deficiency 03/12/2023 Wound of skin 02/20/2023 Ischemic cardiomyopathy 12/26/2022 Heart failure with mildly re duced ejection fraction (HFmrEF) ([facility]) 12/18/2022 Chest pressure 12/17/2022 Electrolyte abnormality 12/16/2022 Surgical wound infection 12/11/2022 Coronary arteriosclerosis 11/27/2022 AVM (arteriovenous malformation) ([facility]) 11/18 Bunion 11/18/2022 Cerebrovascular accident (CVA) ([facility]) 11/18/2022 History of cerebrovascular accident 11/18/2022 Muscular hypertonicity 11/18/2022 Tinea pedis 11/18/2022 Acute urinary tract infection 10/23/2022 Hematuria 10/23/2022 Ankle joint deformity 10/17/2022 Overactive bladder 10/17/2022 Cough 10/08/2022 Furuncle 03/28/2022 Bilateral impacted cerumen 02/12/2022 Hemiparesis ([facility]) 02/12/2022 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[facility]) 02/12/2022 Osteoarthrosis 02/12/2022 Encounters Date Type Department Care Team Description 07/08/2024 Telephone [facility] - [address], [address] [place] [phone] Alicia Corbin NP Question 06/01/2024 Telephone [facility] - [address], [address] [place] [phone] Alicia Corbin NP Referral from Last [...] Comments Blood Pressure 96/53 05/14/2024 12:51 PM [employer]ING IN LINE FEEDER Pulse 69 05/14/2024 12:51 PM [employer]ING IN [employer] FEEDER Temperature 36.9 C (98.5 F) 05/14/2024 12:51 PM [employer]ING IN [employer] FEEDER Respiratory Rate - - Oxygen Saturation 98% 05/14/2024 12:51 PM [employer]ING IN LINE FEEDER Inhaled Oxygen Concentration - - Weight - [...] Influenza Adult (#1) 2024 05/16/2023 PHQ-2 ([facility] [place]) 07/07/2024 Meningococcal B Vaccine Aged Out No l onger eligible based on patient's age to complete this topic Meningococcal Vaccine Aged Out No aneudy reta eligible based on patient's age to complete this topic RSV Immunizations Under 20 Months Aged Out No longer eligible b ased on patient's age to complete this topic Insurance [facility] Care Teams Bobbin Fixer Relationship Specialty Start Date End Date Bryan Cruz MD [address] [place] [address] PCP - General INTERNAL MEDICINE 04/20/24
--- OUTSIDE RECORDS SUMMARY | 2024-08-31 19:14 | XMS_ITS | Clinical Summary ---
Author Organization [facility] Address [address] [place] [address] Care Team Providers Care Solar Technician Name Role Phone Unavailable Primary Care Provider Unavailabl e Immunizations Immunization Administration Dates Next Due Covid-19, Mrna, Lnp-s, Pf, 30 Mcg/0.3 Ml Dose (P fizer) 06/19/2021 Social History Tobacco Use Types Packs/Day Years Used Date Smoking Tobacco: Never Assessed Comments Unknown Sex and Gender Information Value Date Recorded Sex Assigned at Not on file Legal Sex Female 5:34 PM MIXING TANK OPERATOR Gender Identity Not on file Sexual Orientation [...]
--- NOTE | 2024-08-31 20:59 | ED.GENADULT ---
HPI - General Adult General Chief complaint: Weakness <Dickson Pickett MD - Last Filed: 08/31/24 22:43> Stated complaint: weakness, SOB, frequent falls <Dickson Pickett MD - Last Filed: 08/31/24 22:43> Time Seen by Provider: 08/31/24 18:35 <Dickson Pickett MD - Last Filed: 08/31/24 22:43> History of Present Illness HPI narrative: Patient is a 74-year-old female who presents emergency department with chief complaint of weakness shortness of breath dizziness and cough for 2 days the patient states that she rolled out of bed earlier today and reports that she does not felt well the family reported that she was ashen in color and when they brought the patient in the emergency department she has subsequently improved significantly. the family reports that they have been giving her THC gummies for her hip pain but the patient over the last week has been more confused and has vomited on herself <Dickson Pickett MD - Last Filed: 08/31/24 22:43> Related Data Home medications: Home Medications ?Medication ?Instructions ?Recorded ?Confirmed ?Last Taken ?Type calcium 500 mg tablet 500 mg PO BID 11/26/22 11/26/22 11/25/22 History mirabegron 25 mg tablet,extended 25 mg PO DAILY 11/26/22 11/26/22 11/25/22 History release 24 hr (Myrbetriq) <Dickson Pickett MD - Last Filed: 08/31/24 22:43> Allergies/adverse reactions: Allergies Allergy/AdvReac Type Severity Reaction Status Date / Time No Known Allergies Allergy Verified 08/31/24 17:43 <Dickson Pickett MD - Last Filed: 08/31/24 22:43> Review of Systems Review of Systems: A 10 system review of systems was completed on the patient and is negative except for what is stated in the HPI. Nursing and ancillary documentation was reviewed. <Dickson Pickett MD - Last Filed: 08/31/24 22:43> [facility] Past Medical History Medical History: Medical History Brain aneurysm <Dickson Pickett MD - Last Filed: 08/31/24 22:43> Surgical History Surgical History: Surgical History H/O craniotomy <Dickson iPckett MD - Last Filed: 08/31/24 22:43> Family History Family History: Family History Mother Acute myocardial infarction Lung cancer 74 Father Lung cancer Sibling Acute myocardial infarction <Dickson Pickett MD - Last Filed: 08/31/24 22:43> Social History Social History: Social History Smoking packs per day: 0.5 Smoking cigarettes per day: 10.0 Years smoked: 13 Smoking pack-years: 6.50 Smoking status: Former smoker Tobacco type: cigarettes Smoking end date: 02/26/86 Alcohol intake: never Substance use: never Lack of Transportation: No Lack of Food: Never True Current Housing: I Have Housing Concerned About Future Housing: No Difficulty Paying Gas/Electric Bills: No Difficulty Paying for Meds: No Currently Unemployed: No Education: High School Diploma/GED Difficulty w/ Childcare or Family Care: No Spiritual care concerns: No <Dickson Pickett MD - Last Filed: 08/31/24 22:43> Exam Narrative: GENERAL: Well-appearing, well-nourished, and in no acute distress. HEAD: Normocephalic, atraumatic. EYES: PERRLA and EOMI. ENT: Nares clear, no rhinorrhea or epistaxis. Mucous membranes moist. NECK: Supple. CHEST: Clear to auscultation. No respiratory distress. HEART: Regular rate and rhythm. No murmur heard. Normal peripheral pulses. ABDOMEN: Soft, nontender, nondistended, normal active bowel sounds. EXTREMITIES: Normal range of motion. No edema. SKIN: Warm, dry, no rash. NEURO: No new focal deficits weakness of the left upper extremity. Alert and oriented x3. PSYCH: Normal mood and affect. <Dickson Pickett MD - Last Filed: 08/31/24 22:43> Course Vital Signs Vital signs: Vital Signs Temperature 36.4 C 08/31/24 14:15 Pulse Rate 77 08/31/24 14:15 Respiratory Rate 16 08/31/24 14:15 Blood Pressure 118/62 08/31/24 14:15 Pulse Oximetry 100 08/31/24 14:15 Oxygen Delivery Room Air 08/31/24 14:15 Temperature 36.4 C 08/31/24 14:15 Pulse Rate 72 08/31/24 21:39 Respiratory Rate 19 08/31/24 21:39 Blood Pressure 124/75 08/31/24 17:39 Pulse Oximetry 98 08/31/24 21:39 Oxygen Delivery Room Air 08/31/24 14:15 <Dickson Pickett MD - Last Filed: 08/31/24 22:43> Vital Signs Temperature 36.4 C 08/31/24 14:15 Pulse Rate 77 08/31/24 14:15 Respiratory Rate 16 08/31/24 14:15 Blood Pressure 118/62 08/31/24 14:15 Pulse Oximetry 100 08/31/24 14:15 Oxygen Delivery Room Air 08/31/24 14:15 Temperature 36.4 C 08/31/24 14:15 Pulse Rate 72 08/31/24 21:39 Respiratory Rate 19 08/31/24 21:39 Blood Pressure 124/75 08/31/24 17:39 Pulse Oximetry 98 08/31/24 21:39 Oxygen Delivery Room Air 08/31/24 14:15 <Anh Marie APRN - Last Filed: 09/01/24 02:26> Medical Decision Making [facility] Narrative Medical decision making narrative: differential diagnosis includes electrolyte abnormality, bowel obstruction, UTI, ACS laboratory studies were obtained on the patient she normal CBC the patient's hemoglobin is 14.2 which is higher than where she has been electrolytes showed a BUN of 24 creatinine is 0.5 AST and ALT were slightly elevated but bilirubin is normal troponin was negative urinalysis showed 3+ glucose nitrate positive but no white blood cells CT head showed no acute abnormality chest x-ray showed no focal infiltrate CT scan of the abdomen pelvis is currently pending plan will be once CT comes back to discussed with the hospitalist for possible admission <Dickson Pickett MD - Last Filed: 08/31/24 22:43> differential diagnosis includes electrolyte abnormality, bowel obstruction, UTI, ACS laboratory studies were obtained on the patient she normal CBC the patient's hemoglobin is 14.2 which is higher than where she has been electrolytes showed a BUN of 24 creatinine is 0.5 AST and ALT were slightly elevated but bilirubin is normal troponin was negative urinalysis showed 3+ glucose nitrate positive but no white blood cells CT head showed no acute abnormality chest x-ray showed no focal infiltrate CT scan of the abdomen pelvis is currently pending plan will be once CT comes back to discussed with the hospitalist for possible admission 2300- I took over care for this patient. Spoke with pt and her daughter who request pt be admitted to the hospital d/t increase weakness, inability to care for self. Spoke with hospitalist who agreed to further assess pt and help determine need for admission. 0100-Hospitalist agreed to admit pt to med/surg. She and her daughter verbalize understanding and are in agreement with plan. <Anh Marie APRN - Last Filed: 09/01/24 02:26> Differential Diagnosis Differential Diagnosis: UTI, stroke, bowel obstruction, ACS <Anh Marie APRN - Last Filed: 09/01/24 02:26> Vital Signs Vital Signs: Vital Signs Temperature 36.4 C 08/31/24 14:15 Pulse Rate 77 08/31/24 14:15 Respiratory Rate 16 08/31/24 14:15 Blood Pressure 118/62 08/31/24 14:15 Pulse Oximetry 100 08/31/24 14:15 Oxygen Delivery Room Air 08/31/24 14:15 Temperature 36.4 C 08/31/24 14:15 Pulse Rate 72 08/31/24 21:39 Respiratory Rate 19 08/31/24 21:39 Blood Pressure 124/75 08/31/24 17:39 Pulse Oximetry 98 08/31/24 21:39 Oxygen Delivery Room Air 08/31/24 14:15 <Dickson Pickett MD - Last Filed: 08/31/24 22:43> Vital Signs Temperature 36.4 C 08/31/24 14:15 Pulse Rate 77 08/31/24 14:15 Respiratory Rate 16 08/31/24 14:15 Blood Pressure 118/62 08/31/24 14:15 Pulse Oximetry 100 08/31/24 14:15 Oxygen Delivery Room Air 08/31/24 14:15 Temperature 36.4 C 08/31/24 14:15 Pulse Rate 72 08/31/24 21:39 Respiratory Rate 19 08/31/24 21:39 Blood Pressure 124/75 08/31/24 17:39 Pulse Oximetry 98 08/31/24 21:39 Oxygen Delivery Room Air 08/31/24 14:15 <Anh Marie APRN - Last Filed: 09/01/24 02:26> Lab Data Lab results reviewed: Yes I reviewed the patient's lab results. <Anh Marie APRN - Last Filed: 09/01/24 02:26> Result diagrams: 08/31/24 17:38 08/31/24 17:38 <Dickson Pickett MD - Last Filed: 08/31/24 22:43> Labs: Lab Results 08/31/24 08/31/24 Range/Units 17:38 21:47 WBC 9.6 (4.5-10.0) K/mm3 RBC 4.74 (4.2-5.4) M/mm3 Hgb 14.2 D (12.0-15.0) g/dL Hct 43.4 (37.0-47.0) % MCV 91.6 (80-100) fl MCH 30.0 (26-34) pg MCHC 32.7 (32-36) g/dl RDW 14.5 (11.5-14.5) % Plt Count 287 (150-375) k/mm3 MPV 9.5 (7.4-10.4) fl Immature Gran % (Auto) 0.3 (0-0.5) % Neut % (Auto) 79.6 H (45.5-73.1) % Lymph % (Auto) 9.5 L (18.3-44.2) % [place]erry % (Auto) 10.4 H (2.6-8.5) % Eos % (Auto) 0.0 (0-4.4) % Baso % (Auto) 0.2 (0.2-1.2) % Lymph # (Auto) 0.91 (0.9-3.2) K/mm3 [place]erry # (Auto) 1.0 H (0.1-0.6) K/mm3 Eos # (Auto) 0.0 (0-0.3) K/mm3 Baso # (Auto) 0.0 (0.0-0.1) K/mm3 Abs Immat Gran (auto) 0.03 (0.00-0.031) K/mm3 Absolute Neuts (auto) 7.6 H (1.3-6.7) K/mm3 Absolute Nucleated RBC 0.000 (0.0-0.012) K/mm3 Nucleated RBC % 0.0 (0.0-0.2) % Sodium 137 (137-145) mmol/L Potassium 4.1 (3.4-5.0) mmol/L Chloride 101 (98-107) mmol/L Carbon Dioxide 27 (22-30) mmol/L Anion Gap 9 (4-12) mmol/L BUN 24 H (7-17) mg/dL Creatinine 0.50 L (0.7-1.0) mg/dL Estim Creat Clear Calc Not Reportable Estimated GFR > 60 (59 - ) Glucose 101 (65-110) mg/dL Lactic Acid 0.8 (0.7-2.0) mmol/L Calcium 9.6 (8.4-10.2) mg/dL Magnesium 2.2 (1.6-2.3) mg/dL Total Bilirubin 0.8 (0.2-1.3) mg/dL AST 60 H (14-36) U/L ALT 65 H (6-35) U/L Alkaline Phosphatase 82 (38-126) U/L Troponin I < 0.012 (0.000-0.034) ng/mL Total Protein 8.0 (6.3-8.2) g/dL Albumin 4.4 (3.5-5.1) g/dL Urine Color Yellow (Yellow) Urine Appearance Clear (Clear) Urine pH 5.5 (5.0-9.0) Ur Specific [place] 1.032 (1.001-1.035) Urine Protein Negative (Negative) mg/dL Urine Glucose (UA) 3+ H (Negative) mg/dL Urine Ketones Negative (Negative) mg/dL Ur Blood (Man) Negative (Negative) Urine Nitrate Positive H (Negative) Urine Bilirubin Negative (Negative) Urine Urobilinogen 0.2 (<2.0) mg/dL Leukocyte Esterase Rfl Negative (Negative) REGINALD/UL Urine RBC 0-2 (0-2) /hpf Urine WBC 0-5 (0-3) /hpf Ur Squamous Epith Cells None seen (Few) /hpf Urine Bacteria 4+ H /hpf Urine Casts 0-2 <Dickson Pickett MD - Last Filed: 08/31/24 22:43> Lab Results 08/31/24 08/31/24 Range/Units 17:38 21:47 WBC 9.6 (4.5-10.0) K/mm3 RBC 4.74 (4.2-5.4) M/mm3 Hgb 14.2 D (12.0-15.0) g/dL Hct 43.4 (37.0-47.0) % MCV 91.6 (80-100) fl MCH 30.0 (26-34) pg MCHC 32.7 (32-36) g/dl RDW 14.5 (11.5-14.5) % Plt Count 287 (150-375) k/mm3 MPV 9.5 (7.4-10.4) fl Immature Gran % (Auto) 0.3 (0-0.5) % Neut % (Auto) 79.6 H (45.5-73.1) % Lymph % (Auto) 9.5 L (18.3-44.2) % Ferry % (Auto) 10.4 H (2.6-8.5) % Eos % (Auto) 0.0 (0-4.4) % Baso % (Auto) 0.2 (0.2-1.2) % Lymph # (Auto) 0.91 (0.9-3.2) K/mm3 [place] # (Auto) 1.0 H (0.1-0.6) K/mm3 Eos # (Auto) 0.0 (0-0.3) K/mm3 Baso # (Auto) 0.0 (0.0-0.1) K/mm3 Abs Immat Gran (auto) 0.03 (0.00-0.031) K/mm3 Absolute Neuts (auto) 7.6 H (1.3-6.7) K/mm3 Absolute Nucleated RBC 0.000 (0.0-0.012) K/mm3 Nucleated RBC % 0.0 (0.0-0.2) % Sodium 137 (137-145) mmol/L Potassium 4.1 (3.4-5.0) mmol/L Chloride 101 (98-107) mmol/L Carbon Dioxide 27 (22-30) mmol/L Anion Gap 9 (4-12) mmol/L BUN 24 H (7-17) mg/dL Creatinine 0.50 L (0.7-1.0) mg/dL Estim Creat Clear Calc Not Reportable Estimated GFR > 60 (59 - ) Glucose 101 (65-110) mg/dL Lactic Acid 0.8 (0.7-2.0) mmol/L Calcium 9.6 (8.4-10.2) mg/dL Magnesium 2.2 (1.6-2.3) mg/dL Total Bilirubin 0.8 (0.2-1.3) mg/dL AST 60 H (14-36) U/L ALT 65 H (6-35) U/L Alkaline Phosphatase 82 (38-126) U/L Troponin I < 0.012 (0.000-0.034) ng/mL Total Protein 8.0 (6.3-8.2) g/dL Albumin 4.4 (3.5-5.1) g/dL Urine Color Yellow (Yellow) Urine Appearance Clear (Clear) Urine pH 5.5 (5.0-9.0) Ur Specific [place] 1.032 (1.001-1.035) Urine Protein Negative (Negative) mg/dL Urine Glucose (UA) 3+ H (Negative) mg/dL Urine Ketones Negative (Negative) mg/dL Ur Blood (Man) Negative (Negative) Urine Nitrate Positive H (Negative) Urine Bilirubin Negative (Negative) Urine Urobilinogen 0.2 (<2.0) mg/dL Leukocyte Esterase Rfl Negative (Negative) REGINALD/UL Urine RBC 0-2 (0-2) /hpf Urine WBC 0-5 (0-3) /hpf Ur Squamous Epith Cells None seen (Few) /hpf Urine Bacteria 4+ H /hpf Urine Casts 0-2 <Anh Marie, ECONOMICS PROFESSOR - Last Filed: 09/01/24 02:26> Imaging Data Attestation: I personally reviewed and interpreted this imaging study as follows: <Anh Marie, ECONOMICS PROFESSOR - Last Filed: 09/01/24 02:26> Radiologist's impression: Impressions Chest X-Ray 08/31/24 17:40 IMPRESSION: Mild interstitial edema versus senescent changes in the lungs, otherwise no acute cardiopulmonary process detected. Head CT 08/31/24 22:36 IMPRESSION: No acute intracranial process. Abdomen/Pelvis CT 08/31/24 22:58 IMPRESSION: Suggestion of endometrial cavity fluid. Chronically enlarged right ovary. Consider nonemergent but timely pelvic sonography if further evaluation. No acute abdominopelvic process detected. <Anh Marie, ECONOMICS PROFESSOR - Last Filed: 09/01/24 02:26> Discharge Plan Discharge Clinical Impression: Generalized weakness, Nausea and vomiting, Urinary tract infection <Dickson Pickett MD - Last Filed: 08/31/24 22:43> Patient Disposition: Still a Patient <Dickson Pickett MD - Last Filed: 08/31/24 22:43> Condition: Stable <Dickson Pickett MD - Last Filed: 08/31/24 22:43> Instructions: Antibiotic Form <Dickson Pickett MD - Last Filed: 08/31/24 22:43> Patient Language: Swedish <Dickson Pickett MD - Last Filed: 08/31/24 22:43> Prescriptions: No Action Myrbetriq 25 mg tablet extended release 24 hr 25 mg PO DAILY calcium 500 mg Tablet 500 mg PO BID acetaminophen [Mapap (acetaminophen)] 325 mg Tablet 650 mg PO Q6H PRN (Reason: Mild Pain (1-3) Or Fever) Qty: 30 0RF tramadol 50 mg Tablet 50 mg PO BID PRN (Reason: Pain Rated 4-6) Qty: 20 0RF aspirin [Children's Aspirin] 81 mg Tablet,Chewable 81 mg PO DAILY@0800 Qty: 30 0RF atorvastatin 80 mg Tablet 80 mg PO HS Qty: 30 0RF clopidogrel 75 mg Tablet 75 mg PO QAM Qty: 30 0RF Jardiance 10 mg Tablet 10 mg PO DAILY Qty: 30 0RF melatonin 3 mg Tablet 6 mg PO HS PRN (Reason: Insomnia) Qty: 30 0RF losartan 25 mg Tablet 12.5 mg PO DAILY Qty: 30 0RF metoprolol tartrate 25 mg Tablet 6.25 mg PO Q12HR Qty: 60 0RF Thera M Plus (ferrous fumarat) 9 mg iron-400 mcg Tablet 1 tablet PO QAM Qty: 30 0RF polyethylene glycol 3350 [Miralax] 17 gram Powder In Packet 17 g PO QAM Qty: 30 0RF nystatin 100,000 unit/gram Powder 1 applic topical Q12HR Qty: 10 0RF cephalexin 500 mg capsule 500 mg PO Q8H Qty: 21 0RF <Dickson Pickett MD - Last Filed: 08/31/24 22:43> Follow-up/Referrals: Anthony,Bryan Argueta MD [Primary Care Provider] - <Dickson Pickett MD - Last Filed: 08/31/24 22:43>
--- NOTE | 2024-08-31 21:11 | ECG_ITS ---
Test Date: 2024-08-31 21:11:27 Measurements Intervals [place] Rate: 76 P: 62 [place]: 189 QRS: 20 QRSD: 112 T: 0 QT: 336 QTc: 379 Interpretive Statements SINUS RHYTHM DELAYED PRECORDIAL R/S TRANSITION LOW QRS VOLTAGE IN PRECORDIAL LEADS CONSIDER INFERIOR INFARCT, AGE INDETERMINATE BORDERLINE T WAVE ABNORMALITY- LATERAL LEADS BASELINE ARTIFACT- I, II, III, AVR, AVL ,AVF, V1-V5 ABNORMAL ECG Compared to ECG 08/31/2024 17:17:52 No significant changes Electronically Signed On 09-01-2024 10:16:14 SUBSCRIPTION AGENT by Carlyle Mallory D.O.
[2024-08-31] MEDS: SODIUM CHLORIDE 0.9% IV 1,000 ML 999 ML IV CONT (21:50)
[2024-08-31 22:03] LABS: Magnesium 2.2 mg/dL (1.6-2.3)
[2024-08-31 22:05] LABS: Lactic Acid Reflex 0.8 mmol/L (0.7-2.0)
[2024-08-31 22:17] LABS: Troponin I < 0.012 ng/mL (0.000-0.034)
--- NOTE | 2024-08-31 22:40 | P.HP_ITS ---
H&P: HPI History of Present Illness Date/Time: 09/01/24 00:28 Chief Complaint: 1. Fatigue 2. Nausea; Vomiting 3. Recurrent falls Narrative: Wen Tolentino is a 74 yo F with a mHx significant for CVA with left sided deficits, dyslipidmia, CAD s/p PCI, Hypertension, Seizure disorder. Per daughter, she resides at home with her who is senile and seems to be confused and unable to fend for her. During a wellness check, she found her mother (the patient) weak and wading in her vomiting and urine; this was in contrast to the information she had gathered from her father who stated that the patient was well and hearty. The patient was unable to give any circumstantial information regarding the onset of her symptoms, modifying factors or associated symptoms. She however at the bedside does state that she feels better post-IVF and daughter is frantic and fearful of her being discharged back to the care of her . She does not smoke/chew tobacco, drink alcohol or consume recreational/illicit drugs. Work-up findings: UA: +Nitrite; -ve LE; 4+bacteria Influenza A/B; RSV, COVID-19: None detected Troponin: <0.012 AST 60 ALT 65; T.Bili 0.8; Unremarkable CBC CT head: Unremarkable CTAP: Suggestion of endometrial cavity fluid. Chronically enlarged right ovary. Consider nonemergent but timely pelvic sonography if further evaluation. No acute abdominopelvic process detected. CXR: Mild interstitial edema versus senescent changes in the lungs, otherwise no acute cardiopulmonary process detected. Wen Tolentino will be admitted, evaluated and managed for UTI, physical deconditioning and recurrent falls.. [facility] Past Medical History Medical History Brain aneurysm Surgical History Surgical History H/O craniotomy Family History Family History Mother Acute myocardial infarction Lung cancer 74 Father Lung cancer Sibling Acute myocardial infarction Social History Social History Smoking packs per day: 0.5 Smoking cigarettes per day: 10.0 Years smoked: 13 Smoking pack-years: 6.50 Smoking status: Former smoker Tobacco type: cigarettes Smoking end date: 02/26/86 Alcohol intake: never Substance use: current Substance use type: marijuana Other substance usage details: GUMMIES Do You Feel Safe in your Home?: No Lack of Transportation: No Lack of Food: Never True Current Housing: I Have Housing Concerned About Future Housing: No Difficulty Paying Gas/Electric Bills: No Difficulty Paying for Meds: No Currently Unemployed: No Education: High School Diploma/GED Difficulty w/ Childcare or Family Care: No Spiritual care concerns: No Meds Home Medications and Allergies Home Medications ?Medication ?Instructions ?Recorded ?Confirmed ?Type calcium 500 mg tablet 500 mg PO BID 11/26/22 09/01/24 History mirabegron 25 mg tablet,extended 25 mg PO DAILY 11/26/22 09/01/24 History release 24 hr (Myrbetriq) acetaminophen 325 mg tablet (Mapap 650 mg (2 x 325 mg) PO Q6H PRN 02/17/23 09/01/24 Rx (acetaminophen)) Mild Pain (1-3) Or Fever #30 tabs aspirin 81 mg chewable tablet 81 mg PO DAILY@0800 #30 tabs 02/17/23 09/01/24 Rx (Children's Aspirin) atorvastatin 80 mg tablet 80 mg PO HS #30 tabs 02/17/23 09/01/24 Rx clopidogrel 75 mg tablet 75 mg PO QAM #30 tabs 02/17/23 09/01/24 Rx empagliflozin 10 mg tablet 10 mg PO DAILY #30 tabs 02/17/23 09/01/24 Rx (Jardiance) losartan 25 mg tablet 12.5 mg (1/2 x 25 mg) PO DAILY #30 02/17/23 09/01/24 Rx tabs melatonin 3 mg tablet 6 mg (2 x 3 mg) PO HS PRN Insomnia 02/17/23 09/01/24 Rx #30 tabs metoprolol tartrate 25 mg tablet 6.25 mg (1/4 x 25 mg) PO Q12HR #60 02/17/23 09/01/24 Rx tabs multivitamin-iron 9 mg-folic acid 1 tablet PO QAM #30 tabs 02/17/23 09/01/24 Rx 400 mcg-calcium and minerals tablet (Thera M Plus (ferrous fumarate)) nystatin 100,000 unit/gram topical 1 applic topical Q12HR #10 grams 02/17/23 09/01/24 Rx powder polyethylene glycol 3350 17 gram 17 g PO QAM #30 ea 02/17/23 09/01/24 Rx oral powder packet (Miralax) tramadol 50 mg tablet 50 mg PO BID PRN Pain Rated 4-6 02/17/23 09/01/24 Rx #20 tabs levetiracetam 500 mg tablet 500 mg PO Q12H 09/01/24 09/01/24 History Allergies Allergy/AdvReac Type Severity Reaction Status Date / Time No Known Allergies Allergy Verified 08/31/24 17:43 Vital Signs Vital Signs - 24 hr 08/31/24 14:15 08/31/24 17:12 08/31/24 17:39 Temperature 97.6 F Pulse Rate 77 74 69 Respiratory Rate 16 19 Blood Pressure 118/62 124/75 Pulse Oximetry 100 98 Oxygen Delivery Room Air 08/31/24 17:39 08/31/24 21:39 Temperature Pulse Rate 69 72 Respiratory Rate 20 19 Blood Pressure 124/75 Pulse Oximetry 100 98 Oxygen Delivery H&P: Results Labs Labs: Short CBC 08/31/24 Range/Units 17:38 WBC 9.6 (4.5-10.0) K/mm3 Hgb 14.2 D (12.0-15.0) g/dL Hct 43.4 (37.0-47.0) % Plt Count 287 (150-375) k/mm3 BMP 08/31/24 17:38 Sodium 137 Potassium 4.1 Chloride 101 Carbon Dioxide 27 BUN 24 H Creatinine 0.50 L Glucose 101 Calcium 9.6 Cardiac Enzymes 08/31/24 Range/Units 21:47 Troponin I < 0.012 (0.000-0.034) ng/mL Liver Function 08/31/24 Range/Units 17:38 Total Bilirubin 0.8 (0.2-1.3) mg/dL AST 60 H (14-36) U/L ALT 65 H (6-35) U/L Alkaline Phosphatase 82 (38-126) U/L Albumin 4.4 (3.5-5.1) g/dL Urine 08/31/24 Range/Units 17:38 Urine Color Yellow (Yellow) Urine Appearance Clear (Clear) Urine pH 5.5 (5.0-9.0) Ur Specific [place] 1.032 (1.001-1.035) Urine Protein Negative (Negative) mg/dL Urine Glucose (UA) 3+ H (Negative) mg/dL Assessment and Plan Assessment and plan (1) Urinary tract infection: Code(s): N39.0 - Urinary tract infection, site not specified Status: Acute (2) Physical deconditioning: Code(s): R53.81 - Other malaise Status: Acute (3) CVA (cerebral vascular accident): Code(s): I63.9 - Cerebral infarction, unspecified Status: Acute Plan Acute and principal conditions 1. Physical deconditioning 2. UTI 3. Recurrent falls 4. Endometrial fluid Rx: A. IVFs; Urine culture B. Ceftriaxone C. US Pelvis D. PT/OT eval and Rx Chronic and stable conditions 1. CVA with left sided deficits. 2. Dyslipidemia. 3. Hypertension. 4. OAB 5. CAD. Miscellaneous care. 1. Code status. Full 2. VTE prophylaxis. SCDs; SIRIA 3. Nutrition. Heart healthy diet
[2024-09-01] VITALS (15 sets, daily range): BP systolic 100–121; BP diastolic 60–81; PULSE 68–99; RESP 11–28; TEMP 36.4–36.8; O2SAT 90–99; BMI 37.0
[2024-09-01 02:50] LABS: Influenza A QL RT-PCR Negative (Negative); Influenza B QL RT-PCR Negative (Negative); RSV RNA, RT-PCR Negative (Negative); SARS-CoV-2 RNA PCR Negative (Negative)
[2024-09-01] MEDS: SODIUM CHLORIDE 0.9% IV 1,000 ML 100 ML IV CONT ×2 (02:57→20:07)
--- NOTE | 2024-09-01 03:52 | ADMGEN ---
This patient, Wen Tolentino, was admitted to [facility] Surg Room 306-01. Patient/family oriented to hospital policies and general routines including ID bracelet, bed and alarms, visiting hours, pain management, procedures, bathroom and other care routines, personal items, smoking policy, room service/diet, and visiting hours. Information on how to activate the Rapid Response Team has been discussed. Patient/Family are encouraged to report perceived risks to care and to ask questions if they do not understand what they are told or what they should do.
[2024-09-01 06:45] LABS: Basophils Absolute Auto 0.1 K/mm3 (0.0-0.1); Basophils Percent Auto 0.7 % (0.2-1.2); Eosinophils Absolute Auto 0.1 K/mm3 (0-0.3); Eosinophils Percent Auto 1.1 % (0-4.4); Hemoglobin 12.5 g/dL (12.0-15.0); Immature Granulocyte Absolute 0.03 K/mm3 (0.00-0.031); Immature Granulocyte Percent A 0.4 % (0-0.5); Lymphocytes Absolute Auto 1.12 K/mm3 (0.9-3.2); Mean Corpuscular HGB Conc 32.9 g/dl (32-36); Mean Corpuscular Volume 91.1 fl (80-100); Mean Platelet Volume 9.4 fl (7.4-10.4); Monocytes Absolute Auto 0.9 K/mm3 (0.1-0.6); Monocytes Percent Auto 10.6 % (2.6-8.5); Neutrophils Absolute Auto 5.9 K/mm3 (1.3-6.7); Neutrophils Percent Auto 73.2 % (45.5-73.1); Platelet Count Result 257 k/mm3 (150-375); Red Blood Count 4.17 M/mm3 (4.2-5.4); Red Cell Distribution Width 14.6 % (11.5-14.5)
[2024-09-01 06:57] LABS: Alanine Aminotransferase 46 U/L (6-35); Albumin Level 3.4 g/dL (3.5-5.1); Alkaline Phosphatase 65 U/L (38-126); Anion Gap 6 mmol/L (4-12); Aspartate Amino Transferase 45 U/L (14-36); Bilirubin,Total 0.6 mg/dL (0.2-1.3); Blood Urea Nitrogen 17 mg/dL (7-17); Calcium 8.5 mg/dL (8.4-10.2); Carbon Dioxide 26 mmol/L (22-30); Chloride 108 mmol/L (98-107); Estimated CRCL calculation 82 ml/min; Estimated Glomerular Filt Rate > 60; Glucose 100 mg/dL (65-110); Potassium 3.5 mmol/L (3.4-5.0); Sodium 140 mmol/L (137-145)
[2024-09-01 08:11] LABS: Glucose Point of Care 118 mg/dl (65-105)
[2024-09-01] MEDS: levETIRAcetam 500 MG TABLET PO ×2 (08:40→20:16)
--- NOTE | 2024-09-01 10:18 | PM.IMPN ---
Progress Note: A&P Assessment and Plan (1) Urinary tract infection: Code(s): N39.0 - Urinary tract infection, site not specified Status: Acute (2) Physical deconditioning: Code(s): R53.81 - Other malaise Status: Acute (3) CVA (cerebral vascular accident): Code(s): I63.9 - Cerebral infarction, unspecified Status: Acute Plan Acute and principal conditions 1. Physical deconditioning 2. UTI 3. Recurrent falls 4. Endometrial fluid Rx: A. IVFs; Urine culture B. Ceftriaxone-will continue C. US Pelvis D. PT/OT eval and Rx Chronic and stable conditions 1. CVA with left sided deficits. 2. Dyslipidemia. 3. Hypertension. 4. OAB 5. CAD. - Code status. Full - VTE prophylaxis. SCDs; SIRIA - Nutrition. Heart healthy diet Time Spent With Patient Time with patient: 25 - 35 minutes Subjective Date/time seen: 09/01/24 10:18 Interval history: Wen Tolentino is a 74 yo F with a mHx significant for CVA with left sided deficits, dyslipidmia, CAD s/p PCI, Hypertension, Seizure disorder admitted for c/o fatigue, n/v, falls Per pt's daughter, pt lives at home with her senile and seems to be confused and unable to fend for her. Per pt, she is well and daughter si being too overbearing and frantic and fearful of her being discharged back to the care of her . Work-up findings in ED: UA: +Nitrite; -ve LE; 4+bacteria Influenza A/B; RSV, COVID-19: None detected Troponin: <0.012 AST 60 ALT 65; T.Bili 0.8; Unremarkable CBC CT head: Unremarkable CTAP: Suggestion of endometrial cavity fluid. Chronically enlarged right ovary. Consider nonemergent but timely pelvic sonography if further evaluation. No acute abdominopelvic process detected. CXR: Mild interstitial edema versus senescent changes in the lungs, otherwise no acute cardiopulmonary process detected. Pt is seen and examined. she is alert, oriented, appropriate. Had pt/ot eval- will need to work with therapy while here- will re eval then. Appetite is great, denies any pain. Review of Systems Review of Systems: All systems reviewed & are unremarkable except as noted in HPI and below Exam Const: General: comfortable Eyes: General: appearance normal, both eyes and all related structures Resp: Effort & Inspection: normal respiratory effort Auscultation: clear to auscultation bilaterally Cardio: Rate: regular rate Rhythm: regular rhythm GI: GI Palp: Yes Soft to palpation Auscultation: normal bowel sounds Skin: Other: scattered bruises noted- pt reports from falling Neuro: Speech: normal speech Motor exam (neuro): 5/5 motor strength present throughout Extrem: General: normal to inspection Psych: Affect: normal affect Objective Data Vital Signs Vital Signs: Vital Signs - 24 hr 08/31/24 14:15 08/31/24 17:12 08/31/24 17:39 Temperature 97.6 F Pulse Rate 77 74 69 Respiratory Rate 16 19 Blood Pressure 118/62 124/75 Pulse Oximetry 100 98 Oxygen Delivery Room Air 08/31/24 17:39 08/31/24 18:30 08/31/24 18:47 Temperature Pulse Rate 69 69 71 Respiratory Rate 20 14 18 Blood Pressure 124/75 Pulse Oximetry 100 96 Oxygen Delivery 08/31/24 19:00 08/31/24 19:40 08/31/24 19:45 Temperature Pulse Rate 73 70 69 Respiratory Rate 14 14 13 Blood Pressure Pulse Oximetry 98 96 97 Oxygen Delivery 08/31/24 20:00 08/31/24 20:15 08/31/24 20:30 Temperature Pulse Rate 80 81 78 Respiratory Rate 14 19 16 Blood Pressure Pulse Oximetry 95 96 96 Oxygen Delivery 08/31/24 20:45 08/31/24 21:00 08/31/24 21:15 Temperature Pulse Rate 79 78 76 Respiratory Rate 17 17 16 Blood Pressure Pulse Oximetry 94 95 Oxygen Delivery 08/31/24 21:30 08/31/24 21:39 08/31/24 21:45 Temperature Pulse Rate 73 72 75 Respiratory Rate 16 19 15 Blood Pressure Pulse Oximetry 98 98 95 Oxygen Delivery 08/31/24 22:00 08/31/24 22:25 08/31/24 22:34 Temperature Pulse Rate 82 93 86 Respiratory Rate 19 19 16 Blood Pressure Pulse Oximetry 96 96 95 Oxygen Delivery 08/31/24 22:45 08/31/24 23:00 08/31/24 23:15 Temperature Pulse Rate 100 90 91 Respiratory Rate 18 13 16 Blood Pressure Pulse Oximetry 98 95 98 Oxygen Delivery 08/31/24 23:30 08/31/24 23:45 09/01/24 00:00 Temperature Pulse Rate 94 86 90 Respiratory Rate 16 15 16 Blood Pressure Pulse Oximetry 98 97 96 Oxygen Delivery 09/01/24 00:15 09/01/24 00:39 09/01/24 00:45 Temperature Pulse Rate 93 84 82 Respiratory Rate 15 14 13 Blood Pressure Pulse Oximetry 97 97 Oxygen Delivery 09/01/24 01:20 09/01/24 01:30 09/01/24 01:45 Temperature Pulse Rate 68 99 68 Respiratory Rate 11 L 28 H 12 Blood Pressure Pulse Oximetry 96 90 98 Oxygen Delivery 09/01/24 02:00 09/01/24 03:17 09/01/24 03:20 Temperature Pulse Rate 68 84 84 Respiratory Rate 12 19 19 Blood Pressure 100/81 100/81 Pulse Oximetry 98 97 97 Oxygen Delivery 09/01/24 04:53 09/01/24 06:23 Temperature 97.7 F Pulse Rate 79 Respiratory Rate 18 Blood Pressure 106/60 Pulse Oximetry 99 Oxygen Delivery Room Air Intake/Output Intake/Output: Intake & Output 08/29/24 08/30/24 08/31/24 09/01/24 23:59 23:59 23:59 23:59 Intake Total 1000 440 Output Total 250 Balance 750 440 Meds/Results Medications: Active Medications Generic Name Dose Route Start Last Admin Trade Name Freq PRN Reason Stop Dose Admin Acetaminophen 650 mg 09/01/24 00:24 Acetaminophen 325 Mg Tablet PO Q4H PRN Mild Pain (1-3) or Fever Albuterol/Ipratropium 3 ml 09/01/24 00:24 Ipratropium 0.5 Mg/Albuterol Sulfate 2.5 Mg Ampul.Neb 3 Ml INHALATION Q4HRT PRN shortness of breath/Wheezing Aspirin 81 mg 09/01/24 08:00 Aspirin 81 Mg Chewable Tablet PO DAILY@0800 SIRIA Atorvastatin Calcium 80 mg 09/01/24 21:00 Atorvastatin 40 Mg Tablet PO HS SIRIA Clopidogrel Bisulfate 75 mg 09/01/24 09:00 Clopidogrel Bisulfate 75 Mg Tablet PO QAM SIRIA Guaifenesin/Dextromethorphan 10 ml 09/01/24 00:24 Guaifenesin/Dextromethorphan 10 Ml Udc PO Q4H PRN Cough Heparin Sodium (Porcine) 5,000 units 09/01/24 09:00 Heparin Sodium 5,000 Units/Ml Vial SUB-Q Q12HR SIRIA Sodium Chloride 1,000 mls @ 100 mls/hr 09/01/24 00:25 09/01/24 02:57 Normal Saline Iv IV CONT 100 mls/hr .Q10H SIRIA Administration Ceftriaxone Sodium 1 gm in 50 mls @ 100 mls/hr 09/01/24 01:00 09/01/24 02:57 Rocephin 1 Gm/Ns 50 Ml IVPB Infused Q24H SIRIA Infusion Levetiracetam 500 mg 09/01/24 06:20 Levetiracetam 500 Mg Tablet PO Q12HR SIRIA Losartan Potassium 12.5 mg 09/01/24 09:00 Losartan Potassium 12.5 Mg Tablet PO DAILY SIRIA Melatonin 5 mg 09/01/24 00:24 Melatonin 5 Mg Tablet PO HS PRN Insomnia Metoprolol Tartrate 6.25 mg 09/01/24 09:00 Metoprolol Tartrate 6.25 Mg Tablet PO Q12HR SIRIA Polyethylene Glycol 17 gm 09/01/24 00:24 Polyethylene Glycol 3350 17 Gm Powd.Pack PO QAM PRN Constipation Prochlorperazine Edisylate 10 mg 09/01/24 00:24 Prochlorperazine Edisylate 10 Mg/2 Ml Vial IV PUSH Q6H PRN Nausea And Vomiting Tramadol HCl 50 mg 09/01/24 06:16 Tramadol Hcl (*Crx) 50 Mg Tablet PO BID PRN Pain Rated 4-6 Radiology Results: ITS Impressions Chest X-Ray 08/31/24 17:40 IMPRESSION: Mild interstitial edema versus senescent changes in the lungs, otherwise no acute cardiopulmonary process detected. Head CT 08/31/24 22:36 IMPRESSION: No acute intracranial process. Abdomen/Pelvis CT 08/31/24 22:58 IMPRESSION: Suggestion of endometrial cavity fluid. Chronically enlarged right ovary. Consider nonemergent but timely pelvic sonography if further evaluation. No acute abdominopelvic process detected. Labs Labs: Laboratory Results - last 24 hr 08/31/24 08/31/24 09/01/24 17:38 21:47 02:10 WBC 9.6 RBC 4.74 Hgb 14.2 D Hct 43.4 MCV 91.6 MCH 30.0 MCHC 32.7 RDW 14.5 Plt Count 287 MPV 9.5 Immature Gran % (Auto) 0.3 Neut % (Auto) 79.6 H Lymph % (Auto) 9.5 L [place] % (Auto) 10.4 H Eos % (Auto) 0.0 Baso % (Auto) 0.2 Lymph # (Auto) 0.91 [place] # (Auto) 1.0 H Eos # (Auto) 0.0 Baso # (Auto) 0.0 Abs Immat Gran (auto) 0.03 Absolute Neuts (auto) 7.6 H Absolute Nucleated RBC 0.000 Nucleated RBC % 0.0 Sodium 137 Potassium 4.1 Chloride 101 Carbon Dioxide 27 Anion Gap 9 BUN 24 H Creatinine 0.50 L Estim Creat Clear Calc Not Reportable Estimated GFR > 60 Glucose 101 POC Capillary Glucose Lactic Acid 0.8 Calcium 9.6 Magnesium 2.2 Total Bilirubin 0.8 AST 60 H ALT 65 H Alkaline Phosphatase 82 Troponin I < 0.012 Total Protein 8.0 Albumin 4.4 Urine Color Yellow Urine Appearance Clear Urine pH 5.5 Ur Specific [place] 1.032 Urine Protein Negative Urine Glucose (UA) 3+ H Urine Ketones Negative Ur Blood (Man) Negative Urine Nitrate Positive H Urine Bilirubin Negative Urine Urobilinogen 0.2 Leukocyte Esterase Rfl Negative Urine RBC 0-2 Urine WBC 0-5 Ur Squamous Epith Cells None seen Urine Bacteria 4+ H Urine Casts 0-2 Influenza A (RT-PCR) Negative Influenza B (RT-PCR) Negative RSV (RT-PCR) Negative SARS-CoV-2 RNA (RT-PCR) Negative 09/01/24 09/01/24 06:27 07:39 WBC 8.0 RBC 4.17 L Hgb 12.5 Hct 38.0 MCV 91.1 MCH 30.0 MCHC 32.9 RDW 14.6 H Plt Count 257 MPV 9.4 Immature Gran % (Auto) 0.4 Neut % (Auto) 73.2 H Lymph % (Auto) 14.0 L [place] % (Auto) 10.6 H Eos % (Auto) 1.1 Baso % (Auto) 0.7 Lymph # (Auto) 1.12 [place] # (Auto) 0.9 H Eos # (Auto) 0.1 Baso # (Auto) 0.1 Abs Immat Gran (auto) 0.03 Absolute Neuts (auto) 5.9 Absolute Nucleated RBC 0.000 Nucleated RBC % 0.0 Sodium 140 Potassium 3.5 Chloride 108 H Carbon Dioxide 26 Anion Gap 6 BUN 17 Creatinine 0.55 L Estim Creat Clear Calc 82 Estimated GFR > 60 Glucose 100 POC Capillary Glucose 118 H Lactic Acid Calcium 8.5 Magnesium Total Bilirubin 0.6 AST 45 H ALT 46 H Alkaline Phosphatase 65 Troponin I Total Protein 6.0 L Albumin 3.4 L Urine Color Urine Appearance Urine pH Ur Specific [place] Urine Protein Urine Glucose (UA) Urine Ketones Ur Blood (Man) Urine Nitrate Urine Bilirubin Urine Urobilinogen Leukocyte Esterase Rfl Urine RBC Urine WBC Ur Squamous Epith Cells Urine Bacteria Urine Casts Influenza A (RT-PCR) Influenza B (RT-PCR) RSV (RT-PCR) SARS-CoV-2 RNA (RT-PCR)
[2024-09-01] MEDS: ASPIRIN 81 MG CHEWABLE TABLET PO (10:36)
[2024-09-01] MEDS: HEPARIN SODIUM 5,000 UNITS/ML VIAL 5000 UNITS SUB-Q ×2 (10:37→20:09)
[2024-09-01] MEDS: CLOPIDOGREL BISULFATE 75 MG TABLET PO (10:37)
[2024-09-01] MEDS: METOPROLOL TARTRATE 6.25 MG TABLET PO ×2 (10:37→20:20)
[2024-09-01 11:48] LABS: Glucose Point of Care 97 mg/dl (65-105)
[2024-09-01 16:48] LABS: Glucose Point of Care 87 mg/dl (65-105)
[2024-09-01] MEDS: ATORVASTATIN 40 MG TABLET 80 MG PO (20:09)
[2024-09-01] MEDS: MELATONIN 5 MG TABLET PO (20:13)
[2024-09-01] MEDS: traMADol HCL (*CRX) 50 MG TABLET PO (20:16)
[2024-09-01 22:15] LABS: Glucose Point of Care 128 mg/dl (65-105)
[2024-09-02] MEDS: SODIUM CHLORIDE 0.9% IV 1,000 ML 100 ML IV CONT (05:51)
[2024-09-02 06:00] VITALS: BP 100/51; PULSE 77; RESP 18; TEMP 36.8; O2SAT 95
[2024-09-02 06:40] LABS: Basophils Absolute Auto 0.1 K/mm3 (0.0-0.1); Basophils Percent Auto 1.2 % (0.2-1.2); Eosinophils Absolute Auto 0.3 K/mm3 (0-0.3); Eosinophils Percent Auto 4.4 % (0-4.4); Hemoglobin 12.1 g/dL (12.0-15.0); Immature Granulocyte Absolute 0.02 K/mm3 (0.00-0.031); Immature Granulocyte Percent A 0.3 % (0-0.5); Lymphocytes Absolute Auto 1.67 K/mm3 (0.9-3.2); Lymphocytes Percent Auto 21.4 % (18.3-44.2); Mean Corpuscular HGB Conc 32.7 g/dl (32-36); Mean Corpuscular Hemoglobin 30.1 pg (26-34); Mean Platelet Volume 9.6 fl (7.4-10.4); Monocytes Absolute Auto 0.8 K/mm3 (0.1-0.6); Neutrophils Absolute Auto 4.9 K/mm3 (1.3-6.7); Neutrophils Percent Auto 62.7 % (45.5-73.1); Platelet Count Result 274 k/mm3 (150-375); Red Blood Count 4.02 M/mm3 (4.2-5.4); Red Cell Distribution Width 14.6 % (11.5-14.5); White Blood Count 7.8 K/mm3 (4.5-10.0)
[2024-09-02 06:54] LABS: Alanine Aminotransferase 38 U/L (6-35); Albumin Level 3.2 g/dL (3.5-5.1); Alkaline Phosphatase 70 U/L (38-126); Anion Gap 5 mmol/L (4-12); Aspartate Amino Transferase 38 U/L (14-36); Bilirubin,Total 0.7 mg/dL (0.2-1.3); Blood Urea Nitrogen 17 mg/dL (7-17); Calcium 8.4 mg/dL (8.4-10.2); Carbon Dioxide 26 mmol/L (22-30); Chloride 109 mmol/L (98-107); Estimated CRCL calculation 84 ml/min; Estimated Glomerular Filt Rate > 60; Glucose 79 mg/dL (65-110); Potassium 3.8 mmol/L (3.4-5.0); Sodium 140 mmol/L (137-145)
[2024-09-02 08:06] LABS: Glucose Point of Care 88 mg/dl (65-105)
[2024-09-02] MEDS: ACETAMINOPHEN 325 MG TABLET 650 MG PO (08:46)
[2024-09-02] MEDS: ASPIRIN 81 MG CHEWABLE TABLET PO (08:47)
[2024-09-02] MEDS: HEPARIN SODIUM 5,000 UNITS/ML VIAL 5000 UNITS SUB-Q ×2 (08:47→21:03)
[2024-09-02] MEDS: CLOPIDOGREL BISULFATE 75 MG TABLET PO (08:47)
[2024-09-02] MEDS: levETIRAcetam 500 MG TABLET PO ×2 (08:47→21:03)
[2024-09-02 12:07] LABS: Glucose Point of Care 140 mg/dl (65-105)
[2024-09-02 13:55] VITALS: BP 115/47; PULSE 75; RESP 20; TEMP 36.4; O2SAT 97
--- NOTE | 2024-09-02 15:15 | PM.IMPN ---
Progress Note: A&P Assessment and Plan (1) Urinary tract infection: Code(s): N39.0 - Urinary tract infection, site not specified Status: Acute (2) Physical deconditioning: Code(s): R53.81 - Other malaise Status: Acute (3) CVA (cerebral vascular accident): Code(s): I63.9 - Cerebral infarction, unspecified Status: Acute Plan Acute and principal conditions 1. Physical deconditioning 2. UTI 3. Recurrent falls 4. Endometrial fluid Rx: A. IVFs; Urine culture B. Ceftriaxone-will continue C. US Pelvis D. PT/OT eval - follow discharge and placement recommendations Chronic and stable conditions 1. CVA with left sided deficits. 2. Dyslipidemia. 3. Hypertension. 4. OAB 5. CAD. - Code status. Full - VTE prophylaxis. SCDs; SIRIA - Nutrition. Heart healthy diet Time Spent With Patient Time with patient: 25 - 35 minutes Subjective Date/time seen: 09/02/24 15:15 Interval history: Wen Tolentino is a 74 yo F with a mHx significant for CVA with left sided deficits, dyslipidmia, CAD s/p PCI, Hypertension, Seizure disorder admitted for c/o fatigue, n/v, falls Per pt's daughter, pt lives at home with her senile and seems to be confused and unable to fend for her. Per pt, she is well and daughter si being too overbearing and frantic and fearful of her being discharged back to the care of her . Work-up findings in ED: UA: +Nitrite; -ve LE; 4+bacteria Influenza A/B; RSV, COVID-19: None detected Troponin: <0.012 AST 60 ALT 65; T.Bili 0.8; Unremarkable CBC CT head: Unremarkable CTAP: Suggestion of endometrial cavity fluid. Chronically enlarged right ovary. Consider nonemergent but timely pelvic sonography if further evaluation. No acute abdominopelvic process detected. CXR: Mild interstitial edema versus senescent changes in the lungs, otherwise no acute cardiopulmonary process detected. Pt is seen and examined. she is alert, oriented, appropriate. Had pt/ot eval- will need to work with therapy while here- will re eval then. Appetite is great, denies any pain. 09/02 doing better today- up in the chair. continue iv antibiotics. Review of Systems Review of Systems: All systems reviewed & are unremarkable except as noted in HPI and below Exam Const: General: comfortable Eyes: General: appearance normal, both eyes and all related structures Resp: Effort & Inspection: normal respiratory effort Auscultation: clear to auscultation bilaterally Cardio: Rate: regular rate Rhythm: regular rhythm GI: Auscultation: normal bowel sounds Skin: Other: scattered bruises noted- pt reports from falling Neuro: Speech: normal speech Motor exam (neuro): 5/5 motor strength present throughout Extrem: General: normal to inspection Psych: Affect: normal affect Objective Data Vital Signs Vital Signs: Vital Signs - 24 hr 09/01/24 20:20 09/01/24 22:00 09/02/24 06:00 Temperature 98.2 F 98.2 F Pulse Rate 86 87 77 Respiratory Rate 18 18 Blood Pressure 121/65 100/51 L Pulse Oximetry 98 95 09/02/24 13:55 Temperature 97.6 F Pulse Rate 75 Respiratory Rate 20 Blood Pressure 115/47 L Pulse Oximetry 97 Intake/Output Intake/Output: Intake & Output 08/30/24 08/31/24 09/01/24 09/02/24 23:59 23:59 23:59 23:59 Intake Total 1000 3420 2153.3 Output Total 250 1750 800 Balance 750 1670 1353.3 Meds/Results Medications: Active Medications Generic Name Dose Route Start Last Admin Trade Name Freq PRN Reason Stop Dose Admin Acetaminophen 650 mg 09/01/24 00:24 09/02/24 08:46 Acetaminophen 325 Mg Tablet PO 650 mg Q4H PRN Administration Mild Pain (1-3) or Fever Albuterol/Ipratropium 3 ml 09/01/24 00:24 Ipratropium 0.5 Mg/Albuterol Sulfate 2.5 Mg Ampul.Neb 3 Ml INHALATION Q4HRT PRN shortness of breath/Wheezing Aspirin 81 mg 09/01/24 08:00 09/02/24 08:47 Aspirin 81 Mg Chewable Tablet PO 81 mg DAILY@0800 SIRIA Administration Atorvastatin Calcium 80 mg 09/01/24 21:00 09/01/24 20:09 Atorvastatin 40 Mg Tablet PO 80 mg HS SIRIA Administration Clopidogrel Bisulfate 75 mg 09/01/24 09:00 09/02/24 08:47 Clopidogrel Bisulfate 75 Mg Tablet PO 75 mg QAM SIRIA Administration Guaifenesin/Dextromethorphan 10 ml 09/01/24 00:24 Guaifenesin/Dextromethorphan 10 Ml Udc PO Q4H PRN Cough Heparin Sodium (Porcine) 5,000 units 09/01/24 09:00 09/02/24 08:47 Heparin Sodium 5,000 Units/Ml Vial SUB-Q 5,000 units Q12HR SIRIA Administration Sodium Chloride 1,000 mls @ 100 mls/hr 09/01/24 00:25 09/02/24 05:51 Normal Saline Iv IV CONT 100 mls/hr .Q10H SIRIA Administration Ceftriaxone Sodium 1 gm in 50 mls @ 100 mls/hr 09/01/24 01:00 09/02/24 01:29 Rocephin 1 Gm/Ns 50 Ml IVPB 100 mls/hr Q24H SIRIA Administration Levetiracetam 500 mg 09/01/24 06:20 09/02/24 08:47 Levetiracetam 500 Mg Tablet PO 500 mg Q12HR SIRIA Administration Losartan Potassium 12.5 mg 09/01/24 09:00 09/01/24 18:37 Losartan Potassium 12.5 Mg Tablet PO Not Given DAILY SIRIA Melatonin 5 mg 09/01/24 00:24 09/01/24 20:13 Melatonin 5 Mg Tablet PO 5 mg HS PRN Administration Insomnia Metoprolol Tartrate 6.25 mg 09/01/24 09:00 09/01/24 20:20 Metoprolol Tartrate 6.25 Mg Tablet PO 6.25 mg Q12HR SIRIA Administration Polyethylene Glycol 17 gm 09/01/24 00:24 Polyethylene Glycol 3350 17 Gm Powd.Pack PO QAM PRN Constipation Prochlorperazine Edisylate 10 mg 09/01/24 00:24 Prochlorperazine Edisylate 10 Mg/2 Ml Vial IV PUSH Q6H PRN Nausea And Vomiting Tramadol HCl 50 mg 09/01/24 06:16 09/01/24 20:16 Tramadol Hcl (*Crx) 50 Mg Tablet PO 50 mg BID PRN Administration Pain Rated 4-6 Radiology Results: ITS Impressions Chest X-Ray 08/31/24 17:40 IMPRESSION: Mild interstitial edema versus senescent changes in the lungs, otherwise no acute cardiopulmonary process detected. Head CT 08/31/24 22:36 IMPRESSION: No acute intracranial process. Abdomen/Pelvis CT 08/31/24 22:58 IMPRESSION: Suggestion of endometrial cavity fluid. Chronically enlarged right ovary. Consider nonemergent but timely pelvic sonography if further evaluation. No acute abdominopelvic process detected. Pelvic/Transvag US 09/01/24 10:17 IMPRESSION: 1. Thickened endometrial complex. The differential diagnosis includes endometrial hyperplasia, polyp, and carcinoma. Biopsy is recommended. Labs Labs: Laboratory Results - last 24 hr 09/01/24 09/01/24 09/02/24 16:27 20:22 06:11 WBC 7.8 RBC 4.02 L Hgb 12.1 Hct 37.0 MCV 92.0 MCH 30.1 MCHC 32.7 RDW 14.6 H Plt Count 274 MPV 9.6 Immature Gran % (Auto) 0.3 Neut % (Auto) 62.7 Lymph % (Auto) 21.4 [place] % (Auto) 10.0 H Eos % (Auto) 4.4 Baso % (Auto) 1.2 Lymph # (Auto) 1.67 [place] # (Auto) 0.8 H Eos # (Auto) 0.3 Baso # (Auto) 0.1 Abs Immat Gran (auto) 0.02 Absolute Neuts (auto) 4.9 Absolute Nucleated RBC 0.000 Nucleated RBC % 0.0 Sodium 140 Potassium 3.8 Chloride 109 H Carbon Dioxide 26 Anion Gap 5 BUN 17 Creatinine 0.54 L Estim Creat Clear Calc 84 Estimated GFR > 60 Glucose 79 POC Capillary Glucose 87 128 H Calcium 8.4 Total Bilirubin 0.7 AST 38 H ALT 38 H Alkaline Phosphatase 70 Total Protein 6.0 L Albumin 3.2 L 09/02/24 09/02/24 07:17 11:36 WBC RBC Hgb Hct MCV MCH MCHC RDW Plt Count MPV Immature Gran % (Auto) Neut % (Auto) Lymph % (Auto) [place] % (Auto) Eos % (Auto) Baso % (Auto) Lymph # (Auto) [place] # (Auto) Eos # (Auto) Baso # (Auto) Abs Immat Gran (auto) Absolute Neuts (auto) Absolute Nucleated RBC Nucleated RBC % Sodium Potassium Chloride Carbon Dioxide Anion Gap BUN Creatinine Estim Creat Clear Calc Estimated GFR Glucose POC Capillary Glucose 88 140 H Calcium Total Bilirubin AST ALT Alkaline Phosphatase Total Protein Albumin
[2024-09-02 16:56] LABS: Glucose Point of Care 92 mg/dl (65-105)
[2024-09-02] MEDS: ATORVASTATIN 40 MG TABLET 80 MG PO (21:02)
[2024-09-02] MEDS: MELATONIN 5 MG TABLET PO (21:05)
[2024-09-02] MEDS: traMADol HCL (*CRX) 50 MG TABLET PO (21:05)
[2024-09-02 21:07] LABS: Glucose Point of Care 90 mg/dl (65-105)
[2024-09-02 21:30] VITALS: BP 106/70; PULSE 75; RESP 18; TEMP 36.9; O2SAT 96
[2024-09-02 23:07] VITALS: PULSE 69
[2024-09-03 05:45] VITALS: BP 136/72; PULSE 85; RESP 20; TEMP 36.9; O2SAT 96
[2024-09-03 06:55] LABS: Basophils Absolute Auto 0.1 K/mm3 (0.0-0.1); Eosinophils Absolute Auto 0.5 K/mm3 (0-0.3); Eosinophils Percent Auto 5.7 % (0-4.4); Hematocrit 37.8 % (37.0-47.0); Hemoglobin 12.3 g/dL (12.0-15.0); Immature Granulocyte Absolute 0.03 K/mm3 (0.00-0.031); Immature Granulocyte Percent A 0.4 % (0-0.5); Lymphocytes Absolute Auto 1.33 K/mm3 (0.9-3.2); Lymphocytes Percent Auto 15.9 % (18.3-44.2); Mean Corpuscular HGB Conc 32.5 g/dl (32-36); Mean Corpuscular Hemoglobin 29.9 pg (26-34); Mean Platelet Volume 9.7 fl (7.4-10.4); Monocytes Absolute Auto 0.8 K/mm3 (0.1-0.6); Monocytes Percent Auto 9.1 % (2.6-8.5); Neutrophils Absolute Auto 5.7 K/mm3 (1.3-6.7); Neutrophils Percent Auto 67.9 % (45.5-73.1); Platelet Count Result 260 k/mm3 (150-375); Red Blood Count 4.11 M/mm3 (4.2-5.4); Red Cell Distribution Width 14.6 % (11.5-14.5); White Blood Count 8.4 K/mm3 (4.5-10.0)
[2024-09-03 07:08] LABS: Alanine Aminotransferase 34 U/L (6-35); Albumin Level 3.2 g/dL (3.5-5.1); Alkaline Phosphatase 65 U/L (38-126); Anion Gap 7 mmol/L (4-12); Aspartate Amino Transferase 32 U/L (14-36); Bilirubin,Total 0.8 mg/dL (0.2-1.3); Blood Urea Nitrogen 14 mg/dL (7-17); Calcium 8.7 mg/dL (8.4-10.2); Carbon Dioxide 26 mmol/L (22-30); Chloride 108 mmol/L (98-107); Estimated CRCL calculation 80 ml/min; Estimated Glomerular Filt Rate > 60; Glucose 81 mg/dL (65-110); Potassium 3.7 mmol/L (3.4-5.0); Sodium 141 mmol/L (137-145)
[2024-09-03] MEDS: polyethylene glycoL 3350 17 GM POWD.PACK PO (08:52)
[2024-09-03] MEDS: LOSARTAN POTASSIUM 12.5 MG TABLET PO (08:52)
[2024-09-03 08:53] VITALS: PULSE 96
[2024-09-03] MEDS: METOPROLOL TARTRATE 6.25 MG TABLET PO (08:53)
[2024-09-03] MEDS: CLOPIDOGREL BISULFATE 75 MG TABLET PO (08:53)
[2024-09-03] MEDS: levETIRAcetam 500 MG TABLET PO (08:53)
[2024-09-03] MEDS: ASPIRIN 81 MG CHEWABLE TABLET PO (08:53)
[2024-09-03] MEDS: HEPARIN SODIUM 5,000 UNITS/ML VIAL 5000 UNITS SUB-Q (08:53)
[2024-09-03] MEDS: ACETAMINOPHEN 325 MG TABLET 650 MG PO (09:00)
[2024-09-03 10:26] LABS: Uric Acid 4.3 mg/dL (2.5-7.5)
[2024-09-03 14:00] VITALS: BP 111/55; PULSE 80; RESP 18; TEMP 36.9; O2SAT 97
--- NOTE | 2024-09-03 14:02 | PM.IMPN ---
Progress Note: A&P Assessment and Plan (1) Urinary tract infection: Code(s): N39.0 - Urinary tract infection, site not specified Status: Acute (2) Physical deconditioning: Code(s): R53.81 - Other malaise Status: Acute (3) CVA (cerebral vascular accident): Code(s): I63.9 - Cerebral infarction, unspecified Status: Acute Plan Acute and principal conditions 1. Physical deconditioning 2. UTI 3. Recurrent falls 4. Endometrial fluid Rx: A. IVFs; Urine culture B. Ceftriaxone-will stop and order cipro based on c/s C. US Pelvis D. PT/OT eval - follow discharge and placement recommendations - daughter is very concern with a spot to rt leg. i am not able to see any erythema but she claims it is boil on an inside . Will order ultrasound to r/u any infection/cellulitits. Chronic and stable conditions 1. CVA with left sided deficits. 2. Dyslipidemia. 3. Hypertension. 4. OAB 5. CAD. - Code status. Full - VTE prophylaxis. SCDs; SIRIA - Nutrition. Heart healthy diet Time Spent With Patient Time with patient: 25 - 35 minutes Subjective Date/time seen: 09/03/24 14:02 Interval history: Wen Tolentino is a 74 yo F with a mHx significant for CVA with left sided deficits, dyslipidmia, CAD s/p PCI, Hypertension, Seizure disorder admitted for c/o fatigue, n/v, falls Per pt's daughter, pt lives at home with her senile and seems to be confused and unable to fend for her. Per pt, she is well and daughter si being too overbearing and frantic and fearful of her being discharged back to the care of her . Work-up findings in ED: UA: +Nitrite; -ve LE; 4+bacteria Influenza A/B; RSV, COVID-19: None detected Troponin: <0.012 AST 60 ALT 65; T.Bili 0.8; Unremarkable CBC CT head: Unremarkable CTAP: Suggestion of endometrial cavity fluid. Chronically enlarged right ovary. Consider nonemergent but timely pelvic sonography if further evaluation. No acute abdominopelvic process detected. CXR: Mild interstitial edema versus senescent changes in the lungs, otherwise no acute cardiopulmonary process detected. Pt is seen and examined. she is alert, oriented, appropriate. Had pt/ot eval- will need to work with therapy while here- will re eval then. Appetite is great, denies any pain. 09/02 doing better today- up in the chair. continue iv antibiotics. 09/03- cultures are back. will switch to po antibiotics. working with pt/ot. daughter is very concern with a spot to pt leg- will add ultrasound. Review of Systems Review of Systems: All systems reviewed & are unremarkable except as noted in HPI and below Exam Const: General: comfortable Eyes: General: appearance normal, both eyes and all related structures Resp: Effort & Inspection: normal respiratory effort Auscultation: clear to auscultation bilaterally Cardio: Rate: regular rate Rhythm: regular rhythm GI: Auscultation: normal bowel sounds Skin: Other: scattered bruises noted- pt reports from falling Neuro: Speech: normal speech Motor exam (neuro): 5/5 motor strength present throughout Extrem: General: normal to inspection Psych: Affect: normal affect Objective Data Vital Signs Vital Signs: Vital Signs - 24 hr 09/02/24 21:30 09/02/24 23:07 09/03/24 05:45 Temperature 98.4 F 98.4 F Pulse Rate 75 69 85 Respiratory Rate 18 20 Blood Pressure 106/70 136/72 Pulse Oximetry 96 96 09/03/24 08:53 Temperature Pulse Rate 96 Respiratory Rate Blood Pressure Pulse Oximetry Intake/Output Intake/Output: Intake & Output 08/31/24 09/01/24 09/02/24 09/03/24 23:59 23:59 23:59 23:59 Intake Total 1000 3420 2683.3 800 Output Total 250 1750 1700 800 Balance 750 1670 983.3 0 Meds/Results Medications: Active Medications Generic Name Dose Route Start Last Admin Trade Name Freq PRN Reason Stop Dose Admin Acetaminophen 650 mg 09/01/24 00:24 09/03/24 09:00 Acetaminophen 325 Mg Tablet PO 650 mg Q4H PRN Administration Mild Pain (1-3) or Fever Albuterol/Ipratropium 3 ml 09/01/24 00:24 Ipratropium 0.5 Mg/Albuterol Sulfate 2.5 Mg Ampul.Neb 3 Ml INHALATION Q4HRT PRN shortness of breath/Wheezing Aspirin 81 mg 09/01/24 08:00 09/03/24 08:53 Aspirin 81 Mg Chewable Tablet PO 81 mg DAILY@0800 SIRIA Administration Atorvastatin Calcium 80 mg 09/01/24 21:00 09/02/24 21:02 Atorvastatin 40 Mg Tablet PO 80 mg HS SIRIA Administration Clopidogrel Bisulfate 75 mg 09/01/24 09:00 09/03/24 08:53 Clopidogrel Bisulfate 75 Mg Tablet PO 75 mg QAM SIRIA Administration Guaifenesin/Dextromethorphan 10 ml 09/01/24 00:24 Guaifenesin/Dextromethorphan 10 Ml Udc PO Q4H PRN Cough Heparin Sodium (Porcine) 5,000 units 09/01/24 09:00 09/03/24 08:53 Heparin Sodium 5,000 Units/Ml Vial SUB-Q 5,000 units Q12HR SIRIA Administration Sodium Chloride 1,000 mls @ 100 mls/hr 09/01/24 00:25 09/02/24 18:47 Normal Saline Iv IV CONT Not Given .Q10H SRIIA Ceftriaxone Sodium 1 gm in 50 mls @ 100 mls/hr 09/01/24 01:00 09/03/24 00:22 Rocephin 1 Gm/Ns 50 Ml IVPB 100 mls/hr Q24H SIRIA Administration Levetiracetam 500 mg 09/01/24 06:20 09/02/24 21:03 Levetiracetam 500 Mg Tablet PO 500 mg Q12HR SIRIA Administration Losartan Potassium 12.5 mg 09/01/24 09:00 09/03/24 08:52 Losartan Potassium 12.5 Mg Tablet PO 12.5 mg DAILY SIRIA Administration Melatonin 5 mg 09/01/24 00:24 09/02/24 21:05 Melatonin 5 Mg Tablet PO 5 mg HS PRN Administration Insomnia Metoprolol Tartrate 6.25 mg 09/01/24 09:00 09/03/24 08:53 Metoprolol Tartrate 6.25 Mg Tablet PO 6.25 mg Q12HR SIRIA Administration Polyethylene Glycol 17 gm 09/01/24 00:24 09/03/24 08:52 Polyethylene Glycol 3350 17 Gm Powd.Pack PO 17 gm QAM PRN Administration Constipation Prochlorperazine Edisylate 10 mg 09/01/24 00:24 Prochlorperazine Edisylate 10 Mg/2 Ml Vial IV PUSH Q6H PRN Nausea And Vomiting Tramadol HCl 50 mg 09/01/24 06:16 09/02/24 21:05 Tramadol Hcl (*Crx) 50 Mg Tablet PO 50 mg BID PRN Administration Pain Rated 4-6 Radiology Results: ITS Impressions Chest X-Ray 08/31/24 17:40 IMPRESSION: Mild interstitial edema versus senescent changes in the lungs, otherwise no acute cardiopulmonary process detected. Head CT 08/31/24 22:36 IMPRESSION: No acute intracranial process. Abdomen/Pelvis CT 08/31/24 22:58 IMPRESSION: Suggestion of endometrial cavity fluid. Chronically enlarged right ovary. Consider nonemergent but timely pelvic sonography if further evaluation. No acute abdominopelvic process detected. Pelvic/Transvag US 09/01/24 10:17 IMPRESSION: 1. Thickened endometrial complex. The differential diagnosis includes endometrial hyperplasia, polyp, and carcinoma. Biopsy is recommended. Soft Tissue Ultrasound 09/03/24 11:53 IMPRESSION: 1. No abnormal mass in the patient's area of concern in the left posterior thigh. Labs Labs: Laboratory Results - last 24 hr 09/02/24 09/02/24 09/03/24 16:45 21:05 06:03 WBC 8.4 RBC 4.11 L Hgb 12.3 Hct 37.8 MCV 92.0 MCH 29.9 MCHC 32.5 RDW 14.6 H Plt Count 260 MPV 9.7 Immature Gran % (Auto) 0.4 Neut % (Auto) 67.9 Lymph % (Auto) 15.9 L [place] % (Auto) 9.1 H Eos % (Auto) 5.7 H Baso % (Auto) 1.0 Lymph # (Auto) 1.33 [place] # (Auto) 0.8 H Eos # (Auto) 0.5 H Baso # (Auto) 0.1 Abs Immat Gran (auto) 0.03 Absolute Neuts (auto) 5.7 Absolute Nucleated RBC 0.000 Nucleated RBC % 0.0 Sodium 141 Potassium 3.7 Chloride 108 H Carbon Dioxide 26 Anion Gap 7 BUN 14 Creatinine 0.57 L Estim Creat Clear Calc 80 Estimated GFR > 60 Glucose 81 POC Capillary Glucose 92 90 Uric Acid 4.3 Calcium 8.7 Total Bilirubin 0.8 AST 32 ALT 34 Alkaline Phosphatase 65 Total Protein 6.0 L Albumin 3.2 L
--- NOTE | 2024-09-03 15:17 | PM.DS ---
DS: Admitting Diagnosis Discharge Date 09/03 Admitting Diagnosis uti, weakness, falling DS: Discharge Diagnosis Discharge Diagnosis (1) Urinary tract infection: Code(s): N39.0 - Urinary tract infection, site not specified Status: Acute (2) Physical deconditioning: Code(s): R53.81 - Other malaise Status: Acute (3) CVA (cerebral vascular accident): Code(s): I63.9 - Cerebral infarction, unspecified Status: Acute DS: Summary Hospital Course Hospital Course: Wen Tolentino is a 74 yo F with a mHx significant for CVA with left sided deficits, dyslipidmia, CAD s/p PCI, Hypertension, Seizure disorder admitted for c/o fatigue, n/v, falls Pt was started on Ceftriaxone for uti, c/s back today, so she was transitioned to po cipro to complete the course. He rdaughter was concern for a spot to pt's rt leg, inside boil . there was no acute issues identified but we completed ultrasound just to ensure there is no issues. Ultrasound was negative. She started to work with PT/OT for strength. Care coordination assisted with placement finding to continue to work with PT/OT Status at Discharge Functional status at discharge: uses cane/walker Overall status at discharge: patient is progressing back to baseline Time Spent with Patient Time attestation: Total time spent providing and/or coordinating discharge services: Time spent: Greater than 30 minutes Exam Const: General: comfortable Eyes: General: appearance normal, both eyes and all related structures Resp: Effort & Inspection: normal respiratory effort Auscultation: clear to auscultation bilaterally Cardio: Rate: regular rate Rhythm: regular rhythm GI: Auscultation: normal bowel sounds Skin: Other: scattered bruises noted- pt reports from falling Neuro: Speech: normal speech Motor exam (neuro): 5/5 motor strength present throughout Extrem: General: normal to inspection Psych: Affect: normal affect DS: Data Data Completed and Pending Labs on day of discharge: Labs from last 24 hours 09/03/24 09/02/24 09/02/24 06:03 21:05 16:45 WBC 8.4 RBC 4.11 L Hgb 12.3 Hct 37.8 MCV 92.0 MCH 29.9 MCHC 32.5 RDW 14.6 H Plt Count 260 MPV 9.7 Immature Gran % (Auto) 0.4 Neut % (Auto) 67.9 Lymph % (Auto) 15.9 L [place] % (Auto) 9.1 H Eos % (Auto) 5.7 H Baso % (Auto) 1.0 Lymph # (Auto) 1.33 [place] # (Auto) 0.8 H Eos # (Auto) 0.5 H Baso # (Auto) 0.1 Abs Immat Gran (auto) 0.03 Absolute Neuts (auto) 5.7 Absolute Nucleated RBC 0.000 Nucleated RBC % 0.0 Sodium 141 Potassium 3.7 Chloride 108 H Carbon Dioxide 26 Anion Gap 7 BUN 14 Creatinine 0.57 L Estim Creat Clear Calc 80 Estimated GFR > 60 Glucose 81 POC Capillary Glucose 90 92 Uric Acid 4.3 Calcium 8.7 Total Bilirubin 0.8 AST 32 ALT 34 Alkaline Phosphatase 65 Total Protein 6.0 L Albumin 3.2 L Discharge Plan Discharge Attending physician on discharge: Dickson Love Discharging Clinician: Felicia Liao Patient Disposition: SNF Activity: november shower Diet: diabetic Patient Instructions: Heart Failure (GEN), Blood Thinners (GEN) Patient Language: Citizen Of [place] Stand Alone Forms: General Discharge Information Discharge Medications: New ciprofloxacin HCl 500 mg Tablet 500 mg PO Q12HR Qty: 10 0RF Continued mirabegron [Myrbetriq] 25 mg tablet extended release 24 hr 25 mg PO DAILY calcium 500 mg Tablet 500 mg PO BID levetiracetam 500 mg tablet 500 mg PO Q12H tramadol 50 mg Tablet 50 mg PO BID PRN (Reason: Pain Rated 4-6) Qty: 6 0RF acetaminophen [Mapap (acetaminophen)] 325 mg Tablet 650 mg PO Q6H PRN (Reason: Mild Pain (1-3) Or Fever) Qty: 30 0RF aspirin [Children's Aspirin] 81 mg Tablet,Chewable 81 mg PO DAILY@0800 Qty: 30 0RF atorvastatin 80 mg Tablet 80 mg PO HS Qty: 30 0RF clopidogrel 75 mg Tablet 75 mg PO QAM Qty: 30 0RF Jardiance 10 mg Tablet 10 mg PO DAILY Qty: 30 0RF melatonin 3 mg Tablet 6 mg PO HS PRN (Reason: Insomnia) Qty: 30 0RF losartan 25 mg Tablet 12.5 mg PO DAILY Qty: 30 0RF metoprolol tartrate 25 mg Tablet 6.25 mg PO Q12HR Qty: 60 0RF Thera M Plus (ferrous fumarat) 9 mg iron-400 mcg Tablet 1 tablet PO QAM Qty: 30 0RF polyethylene glycol 3350 [Miralax] 17 gram Powder In Packet 17 g PO QAM Qty: 30 0RF nystatin 100,000 unit/gram Powder 1 applic topical Q12HR Qty: 10 0RF Date of admission: 09/01/24 01:41 Primary Care Provider: Anthony,Bryan Argueta Admitting Provider: Zia Escalante Attending physician on admission: Zia Escalante Condition: Stable Hospitalist MIPS Heart Failure (Exclusion) Patient has history of Heart Transplant or Left Ventricular Assistive Device?: No IF YES, STOP HERE Heart Failure (Qualifier) Patient has current or prior documentation of LVEF less than or equal to 40%, or mod/servere depressed LVSF?: No IF NO, STOP HERE
== END 2024-09-03 19:24 ==
LOC: ANHED 09-01 01:17 → ANH3MEDSUR 09-01 03:53
PROVIDERS: Emergency Medicine; Nurse Practitioner; Admitting Provider Internal Medicine; Emergency Provider Registered Nurse; PCP Internal Medicine; Visit Provider Internal Medicine
DX: N39.0 Urinary tract infection, site not specified (principal); R53.81 Other malaise; Z86.73 Personal history of transient ischemic attack (TIA), and cerebral infarction without residual deficits; R11.2 Nausea with vomiting, unspecified; M79.652 Pain in left thigh; N32.81 Overactive bladder; I25.10 Atherosclerotic heart disease of native coronary artery without angina pectoris; I10 Essential (primary) hypertension; E78.5 Hyperlipidemia, unspecified; G40.909 Epilepsy, unspecified, not intractable, without status epilepticus; R29.6 Repeated falls; Z20.822 Contact with and (suspected) exposure to COVID-19; Z79.82 Long term (current) use of aspirin; Z87.891 Personal history of nicotine dependence; Z79.899 Other long term (current) drug therapy; Z95.5 Presence of coronary angioplasty implant and graft
CPT/HCPCS: 36415; 70450; 71045; 74177; 76830; 76856; 76882; 80053; 81001; 82948; 83605; 83735; 84484; 84550; 85025; 87077; 87086; 87186; 87637; 93005; 96361; 96365; 96372; 96375; 97110; 97161; 97166; 97530; 97535; 99285; A9270; G0378; J0696; J1644; J7030; Q9967